=== PATIENT | female | born 1990 | race Caucasian/White ===

== ENCOUNTER 2020-04-11 08:49 | Emergency (ER) | payer OTHER, SELFPAY ==
--- NOTE | ~2020-04-11 | CT_ITS ---
EXAMINATION: CT facial bones wo con DATE: 04/11/2020 09:44 INDICATION: Facial pain after injury TECHNIQUE: Computed tomography (CT) of the facial bones was performed without intravenous contrast. T he dose-length product was 273.42 mGy-cm. Automated exposure control and iterative reconstruction cheko hnique were employed. COMPARISON: None FINDINGS: Orbits are symmetric without evidence for blowout fracture.. There is a right janee bullos a. Leftward nasal septal deviation. No acute facial fracture. Temporomandibular joints intact. Mandib le within normal limits. Visualized aspects of the cervical spine are unremarkable. There is a nasal fracture which is likely chronic. IMPRESSION: 1. No acute maxillofacial fracture. Reviewed, dictated and finalized at location B.
[2020-04-11 09:09] VITALS: BP 224/120; PULSE 99; RESP 16; TEMP 35.9; O2SAT 98
--- NOTE | 2020-04-11 10:06 | ED.HEATRA ---
HPI - Head Injury General Chief complaint: Head Injury Stated complaint: head injury Time Seen by Provider: 04/11/20 09:13 Source: patient Mode of arrival: ambulatory Limitations: no limitations History of Present Illness HPI Narrative: Patient is a 29-year-old female who presents with facial injury that occurred last night patient's dog jumped up into her face striking the face patient notes aching pain at this location with increased rhinorrhea since the injury patient denies loss of consciousness patient presents in no distress with patient has not taken anything for symptoms patient notes today she felt dizzy and lightheaded nauseous patient on arrival is in no distress does not appear uncomfortable Related Data Home Medications Medication Instructions Recorded Confirmed Control 04/11/20 sertraline [Zoloft] 25 mg PO DAILY 04/11/20 Allergies Allergy/AdvReac Type Severity Reaction Status Date / Time amoxicillin Allergy Unknown Verified 04/11/20 09:08 Penicillins Allergy Unknown Verified 04/11/20 09:08 Review of Systems Review of Systems: All systems reviewed & are unremarkable except as noted in HPI and below PMFSH Past Medical History Medical History (Updated 04/11/20 @ 10:09 by Alfredo Mercado PA-C) Obese Social History Social History (Updated 04/11/20 @ 10:07 by Alfredo Mercado PA-C) Smoking status: Never smoker Gender identity (if verbalized by the patient): Female Exam Narrative: Exam Narrative: GENERAL: Well-appearing, obese, and in no acute distress. HEAD: Normocephalic, atraumatic. EYES: PERRLA and EOMI. ENT: Nares clear, no rhinorrhea or epistaxis. Mucous membranes moist. Oropharynx without tonsillar hypertrophy exudate or other lesions. CHEST: Clear to auscultation. No respiratory distress. No wheezes rales or rhonchi HEART: Regular rate and rhythm. No murmur heard. EXTREMITIES: Normal range of motion. No edema. SKIN: Warm, dry, no rash. NEURO: No focal deficits. Alert and oriented x3. Cranial nerves II through XII grossly intact. Normal speech and gait PSYCH: Normal mood and affect. Course Course Emergency Course: Patient in the room in no distress aware of case findings treatment plan and diagnosis agreeing to follow-up as direct Vital Signs Vital signs: Vital Signs Temperature 96.7 F L 04/11/20 09:09 Pulse Rate 99 04/11/20 09:09 Respiratory Rate 16 04/11/20 09:09 Blood Pressure 224/120 H 04/11/20 09:09 Pulse Oximetry 98 04/11/20 09:09 Temperature 96.7 F L 04/11/20 09:09 Pulse Rate 99 04/11/20 09:09 Respiratory Rate 16 04/11/20 09:09 Blood Pressure 224/120 H 04/11/20 09:09 Pulse Oximetry 98 04/11/20 09:09 MDM - Head Injury MDM Narrative Medical decision making narrative: Patient with negative CT imaging felt appropriate for outpatient reevaluation advised to follow with primary care for further evaluation of her injuries and her blood pressure Discharge Plan Discharge Clinical Impression: Closed head injury Patient Disposition: Home, Self-Care Condition: Stable Instructions: Antibiotic Form, Concussion (ED) Additional Instructions: Follow up with your primary care doctor in 5-7 days for re-evaluation. Go to ER for worsening pain, vision changes, nausea/vomiting, fever/chills, weakness, chest pain, shortness of breath, numbness/tingling, slurred speech, difficulty walking, change in mental status etc. or any other concerns. Take any prescribed medications as directed. Prescriptions: No Action sertraline [Zoloft] 25 mg Tablet 25 mg PO DAILY RF: 0 Control RF: 0 Follow-up/Referrals: Nahum,Jodi Bhatt, [employer]ATOR-BC [Primary Care Provider] - Stand Alone Forms: Work/School Release IP
[2020-04-11 10:19] VITALS: BP 160/99; PULSE 75; RESP 16; O2SAT 100
== END 2020-04-11 10:23 | disposition home or self-care (01) ==
PROVIDERS: Emergency Provider Emergency Medicine; PCP Nurse Practitioner Family
DX: S09.93XA Unspecified injury of face, initial encounter (principal); E66.9 Obesity, unspecified; Z68.41 Body mass index [BMI] 40.0-44.9, adult; W54.1XXA Struck by dog, initial encounter
CPT/HCPCS: 70486; 99284

== ENCOUNTER 2023-10-01 17:04 | Emergency (ER) | payer OTHER, SELFPAY ==
--- NOTE | 2023-10-01 17:14 | ED.WOUNDLAC ---
HPI - Wound/Laceration General Chief Complaint: Skin/Abscess/Foreign Body Stated Complaint: dog scratch around left eye Time Seen by Provider: 10/01/23 17:34 Source: patient and RN notes reviewed Mode of arrival: ambulatory Limitations: no limitations History of Present Illness HPI narrative: 32-year-old female presents with concern for a dog scratch under her left eye. Reports she got scratched by a dog last night, had a scratch. She has been wearing a Band-Aid, she took the bandage off today noticed some pus in the scratch. Related Data Home Medications Medication Instructions Recorded Confirmed buspirone 7.5 mg tablet 7.5 mg PO BID 10/01/23 10/01/23 dapagliflozin propanediol 5 mg 5 mg PO DAILY 10/01/23 10/01/23 tablet (Farxiga) glipizide 5 mg tablet 5 mg PO BID 10/01/23 10/01/23 lisinopril 40 mg tablet 40 mg PO DAILY 10/01/23 10/01/23 metformin 1,000 mg tablet 1,000 mg PO DAILY 10/01/23 10/01/23 nebivolol 5 mg tablet 5 mg PO DAILY 10/01/23 10/01/23 rosuvastatin 5 mg tablet 5 mg PO HS 10/01/23 10/01/23 sertraline 50 mg tablet 50 mg PO DAILY 10/01/23 10/01/23 tirzepatide 7.5 mg/0.5 mL 7.5 mg subcut WEEKLY 10/01/23 10/01/23 subcutaneous pen injector (Mounjaro) Allergies Allergy/AdvReac Type Severity Reaction Status Date / Time amoxicillin Allergy Unknown Verified 10/01/23 17:20 Penicillins Allergy Unknown Verified 10/01/23 17:20 Review of Systems Review of Systems: CONSTITUTIONAL: Denies malaise, chills, sweats, or fever. SKIN: Reports laceration with purulent drainage MUSCULOSKELETAL: Denies muscle skeletal pain NEUROLOGIC: Denies numbness, weakness All systems reviewed & are unremarkable except as noted in HPI and below PMFSH Past Medical History Medical History (Updated 10/01/23 @ 17:42 by Mona Gilman NP) Obese Social History Social History (Updated 04/11/20 @ 10:07 by Alfredo Mercado, LUDIVINA) Smoking status: Never smoker Gender identity (if verbalized by the patient): Female Comments At time of signature, agree with nursing past medical, surgical, social and family history. There is no relevant family history pertinent to the presenting complaint Exam Narrative: GENERAL: Well-appearing, well-nourished, and in no acute distress. HEAD: Normocephalic, atraumatic. EYES: PERRLA, conjunctivae clear, and EOMI. ENT: Mucous membranes moist. NECK: Supple. No lymphadenopathy CHEST: Clear to auscultation. No respiratory distress. HEART: Regular rate and rhythm. SKIN: Warm, dry. Erythema, superficial edema noted on the left eye with a 1 cm laceration with dried purulent drainage NEURO: Alert and oriented x3. PSYCH: Normal mood and affect Course Course Emergency Course: Patient is aware of diagnosis, understands and agrees to treatment plan. Anticipatory guidance given. Patient agrees to follow-up as directed and is aware of reasons to seek care at the emergency department. Portions of this record may have been created with voice recognition software Level of Care: Express Care Visit Vital Signs Vital signs: Reviewed. MDM - Wound/Laceration Differential Diagnosis Differential diagnosis: Likely laceration, abrasion, avulsion of skin and other (Does not appear at this time to be erythema multiforme, bullous, SJS, TEN; no evidence at this time to suggest RMSF, NSTI, endocarditis or Lyme disease; patient looks well, nontoxic and is tolerating oral intake; no neurologic signs or symptoms; no headache, photophobia or neck pain; afebrile. Dipti) Critical Care Time Critical Care Time Critical Care Time: No Discharge Plan Discharge Clinical Impression: Infected wound Patient Disposition: Home, Self-Care Condition: Stable Instructions: Antibiotic Form, Wound Infection (ED) Additional Instructions: Please follow up with your Primary Care Doctor within 48-72 hours - call for an appointment. Apply moist heat 3-4 times daily for 10-15 minutes. Take Motrin 600mg jr
[2023-10-01 17:21] VITALS: BP 157/116; PULSE 77; RESP 16; TEMP 36.7; O2SAT 99
[2023-10-01 17:24] VITALS: BP 157/116; PULSE 77; RESP 16; TEMP 36.7; O2SAT 99
== END 2023-10-01 17:46 | disposition home or self-care (01) ==
PROVIDERS: Emergency Provider Nurse Practitioner
DX: S01.112A Laceration without foreign body of left eyelid and periocular area, initial encounter (principal); L08.9 Local infection of the skin and subcutaneous tissue, unspecified; W54.8XXA Other contact with dog, initial encounter; E66.9 Obesity, unspecified; Z68.41 Body mass index [BMI] 40.0-44.9, adult
CPT/HCPCS: 99213; G0463

== ENCOUNTER 2023-10-03 07:24 | Emergency (ER) | payer OTHER, SELFPAY ==
[2023-10-03 07:26] VITALS: BP 181/108; PULSE 90; RESP 20; TEMP 36.3; O2SAT 98
[2023-10-03 07:34] VITALS: BP 160/105
[2023-10-03 08:15] LABS: Basophils Absolute Auto 0.1 K/mm3 (0.0-0.1); Basophils Percent Auto 0.9 % (0.2-1.2); Eosinophils Absolute Auto 0.3 K/mm3 (0-0.3); Eosinophils Percent Auto 3.6 % (0-4.4); Hematocrit 40.7 % (37.0-47.0); Hemoglobin 12.6 g/dL (12.0-15.0); Immature Granulocyte Absolute 0.02 K/mm3 (0.00-0.031); Immature Granulocyte Percent A 0.2 % (0-0.5); Lymphocytes Absolute Auto 1.98 K/mm3 (0.9-3.2); Lymphocytes Percent Auto 24.5 % (18.3-44.2); Mean Corpuscular Hemoglobin 25.2 pg (26-34); Mean Corpuscular Volume 81.4 fl (80-100); Mean Platelet Volume 9.2 fl (7.4-10.4); Monocytes Absolute Auto 0.4 K/mm3 (0.1-0.6); Monocytes Percent Auto 4.5 % (2.6-8.5); Neutrophils Absolute Auto 5.4 K/mm3 (1.3-6.7); Neutrophils Percent Auto 66.3 % (45.5-73.1); Platelet Count Result 406 k/mm3 (150-375); Red Cell Distribution Width 13.9 % (11.5-14.5); White Blood Count 8.1 K/mm3 (4.5-10.0)
[2023-10-03 08:24] LABS: Alanine Aminotransferase 48 U/L (6-35); Albumin Level 4.6 g/dL (3.5-5.1); Alkaline Phosphatase 59 U/L (38-126); Anion Gap 10 mmol/L (4-12); Aspartate Amino Transferase 43 U/L (14-36); Bilirubin,Total 0.5 mg/dL (0.2-1.3); Blood Urea Nitrogen 14 mg/dL (7-17); Calcium 9.4 mg/dL (8.4-10.2); Carbon Dioxide 23 mmol/L (22-30); Chloride 107 mmol/L (98-107); Estimated CRCL calculation 148 ml/min; Estimated Glomerular Filt Rate > 60; Glucose 190 mg/dL (65-110); Potassium 4.4 mmol/L (3.4-5.0); Sodium 140 mmol/L (137-145)
--- NOTE | 2023-10-03 08:25 | ED.GENADULT ---
HPI - General Adult General Chief complaint: Animal Bite Stated complaint: dog bit to face Time Seen by Provider: 10/03/23 07:28 History of Present Illness HPI narrative: Patient is a 32-year-old female who presents ER with concerns for infection to her left face. She was either bit or scratched by her dog 2 days ago. She has a 1 cm laceration that is healing by secondary intention. She was seen at an urgent care prescribe cefpatrick. She has had no purulence drainage. This morning when she woke up her eye was more puffy which made her concerned. There is slight warmth when compared to the right side. There is some bruising developing. No change in vision. No eye pain. Related Data Home Medications Medication Instructions Recorded Confirmed buspirone 7.5 mg tablet 7.5 mg PO BID 10/01/23 10/01/23 dapagliflozin propanediol 5 mg 5 mg PO DAILY 10/01/23 10/01/23 tablet (Farxiga) glipizide 5 mg tablet 5 mg PO BID 10/01/23 10/01/23 lisinopril 40 mg tablet 40 mg PO DAILY 10/01/23 10/01/23 metformin 1,000 mg tablet 1,000 mg PO DAILY 10/01/23 10/01/23 nebivolol 5 mg tablet 5 mg PO DAILY 10/01/23 10/01/23 rosuvastatin 5 mg tablet 5 mg PO HS 10/01/23 10/01/23 sertraline 50 mg tablet 50 mg PO DAILY 10/01/23 10/01/23 tirzepatide 7.5 mg/0.5 mL 7.5 mg subcut WEEKLY 10/01/23 10/01/23 subcutaneous pen injector (Mounjaro) Allergies Allergy/AdvReac Type Severity Reaction Status Date / Time amoxicillin Allergy Unknown Verified 10/03/23 07:24 clindamycin Allergy Rash Verified 10/03/23 07:24 Penicillins Allergy Unknown Verified 10/03/23 07:24 Review of Systems Constitutional: Constitutional: Reports no additional constitutional complaints Eyes: Eyes: Reports no additional eye complaints Integumentary/Breasts: Skin/Breast: Reports erythema, Denies rash and Denies skin ulcer PMFSH Past Medical History Medical History (Updated 10/03/23 @ 09:17 by Davian Charles MD) Diabetes Obese Social History Social History (Updated 04/11/20 @ 10:07 by Alfredo Mercado, PASheila) Smoking status: Never smoker Gender identity (if verbalized by the patient): Female Exam Narrative: GENERAL: Well-appearing, well-nourished, and in no acute distress. HEAD: Normocephalic, atraumatic. EYES: PERRL and EOMI. ENT: Mucous membranes moist. EXTREMITIES: Normal range of motion. No edema. SKIN: Warm, dry, no rash. 1 cm laceration healing by secondary intention to the infraorbital region on the left side. There is slight warmth and bruising to the area. There is some yellowing of the skin. No fluctuance. NEURO: Alert and oriented x3. PSYCH: Normal mood and affect. Course Course Emergency Course: Labs reassuring. Will broaden antibiotic coverage with Flagyl and topical antibiotic. Follow-up with PCP. Discussed return precautions. Vital Signs Vital signs: Vital Signs Temperature 97.4 F L 10/03/23 07:26 Pulse Rate 90 10/03/23 07:26 Respiratory Rate 20 10/03/23 07:26 Blood Pressure 181/108 H 10/03/23 07:26 Pulse Oximetry 98 10/03/23 07:26 Oxygen Delivery Room Air 10/03/23 07:26 Temperature 97.4 F L 10/03/23 07:26 Pulse Rate 90 10/03/23 07:26 Respiratory Rate 20 10/03/23 07:26 Blood Pressure 160/105 H 10/03/23 07:34 Pulse Oximetry 98 10/03/23 07:26 Oxygen Delivery Room Air 10/03/23 07:26 Medical Decision Making Vital Signs Vital Signs: Vital Signs Temperature 97.4 F L 10/03/23 07:26 Pulse Rate 90 10/03/23 07:26 Respiratory Rate 20 10/03/23 07:26 Blood Pressure 181/108 H 10/03/23 07:26 Pulse Oximetry 98 10/03/23 07:26 Oxygen Delivery Room Air 10/03/23 07:26 Temperature 97.4 F L 10/03/23 07:26 Pulse Rate 90 10/03/23 07:26 Respiratory Rate 20 10/03/23 07:26 Blood Pressure 160/105 H 10/03/23 07:34 Pulse Oximetry 98 10/03/23 07:26 Oxygen Delivery Room Air 10/03/23 07:26 Lab Data 10/03/23 08:10 10/03/23 08
[2023-10-03 09:26] VITALS: BP 139/78; PULSE 80; RESP 16; O2SAT 98
== END 2023-10-03 09:27 | disposition home or self-care (01) ==
PROVIDERS: Emergency Provider Emergency Medicine
DX: S01.152A Open bite of left eyelid and periocular area, initial encounter (principal); W54.0XXA Bitten by dog, initial encounter; E11.9 Type 2 diabetes mellitus without complications; E66.9 Obesity, unspecified; Z68.41 Body mass index [BMI] 40.0-44.9, adult
CPT/HCPCS: 36415; 80053; 85025; 99283

== ENCOUNTER 2024-07-25 16:46 | Inpatient (IN) | payer OTHER, SELFPAY ==
--- NOTE | ~2024-07-25 | CT_ITS ---
CLINICAL INDICATION: Hypoglycemia with acute renal failure COMPARISON: None. TECHNIQUE: Multiple contiguous axial images of the abdomen and pelvis were performed without the admi nistration of intravenous contrast The dose-length product (DLP) was 1593.22 mGy-cm. Automated exposure control and iterative reconstruction technique were employed. FINDINGS/OBSERVATIONS: Visualized lower thorax: The bilateral lung bases are clear. The heart is of normal size, without pericardial effusion. Small hiatal hernia is present. Liver: The liver demonstrates homogeneous attenuation and is enlarged measuring 20 cm in longitudinal dimens ion. Gallbladder and biliary system: The gallbladder is only minimally distended, and otherwise unremarkable. Pancreas: Limited evaluation of the pancreas secondary to the lack of intravenous contrast. Spleen: The spleen demonstrates homogeneous attenuation and is not enlarged measuring 6 cm in longitudinal di mension. Kidneys: The bilateral kidneys are unremarkable, without hydronephrosis or renal calculi. Adrenal glands: Unremarkable. Gastrointestinal tract: Colonic diverticulosis without surrounding inflammatory change. Fecal stasis within the colon. Appendix: The air-filled appendix is of normal caliber (axial series, images 124 through 140) Vasculature: Unremarkable. Lymph nodes: No pathologically enlarged or morphologically suspicious lymph nodes within the retroperitoneum or at the root of the mesentery. Pelvic structures: The bladder is only minimally distended, and demonstrates thickened mcgill with surrounding inflammato ry change, findings suggesting cystitis. The uterus is anteverted and anteflexed, and otherwise unremarkable. Body wall and musculoskeletal: Small fat-containing umbilical hernia. No significant degenerative disease within the lower thoracic or lumbosacral spine. IMPRESSION: Hepatomegaly. Inflammatory change surrounding the bladder. No obstructive uropathy. Reviewed, dictated and finalized at location A. [employer]
--- NOTE | ~2024-07-25 | US_ITS ---
EXAMINATION: US renal BI DATE: 07/26/2024 08:35 INDICATION: Acute renal failure TECHNIQUE: Multiple ultrasound grayscale images of the kidneys were obtained. COMPARISON: None. FINDINGS: The right kidney measures 15.2 x 5.1 x 6.9 cm. The left kidney measures 13.4 x 5.1 x 6.5 cm. The kidn eys demonstrate normal echogenicity. There is no hydronephrosis in either kidney. No stones identifi ed. The bladder is normal accounting for partially decompressed state. Bilateral ureteral jets visual ized in the bladder on color Doppler.. IMPRESSION: 1. Normal kidneys without hydronephrosis. Reviewed, dictated and finalized at location B. L CHECKER
--- NOTE | ~2024-07-25 | XR_ITS ---
Portable chest x-ray Comparison: None Clinical History: Shortness of breath Findings: Probable retrocardiac airspace disease present. Right lung clear. Cardiomediastinal silho uette is unremarkable. Bones and soft tissues are unremarkable. Impression: Suspected left lower lobe pneumonia. Reviewed, dictated and finalized at location . COMPLIANCE MANAGER Impression: Suspected left lower lobe pneumonia.
--- OUTSIDE RECORDS SUMMARY | 2024-07-25 16:50 | XMS_ITS | Data Portability ---
Author Organization [facility] [employer], Main Office Address [address] [place] [address] Care Team Providers Care Software Installer Name Role Phone TAWANDA MCLAIN Primary Care Provider Assessment Encounter Date Assessment Date Assessment LastModified by Organization Details LastModified Time 11/27/2022 11/27/2022 spent 20 min discussing diet/weight/ and relation of diabetes/lipi d/weight to health status. Not available 11/27/2022 11:33:16 Plan of Treatment Reminders Order Date Submit Date Provider Last Modified By Organization Details Last Modified Time Details Appointments None recorded. Lab TSH, serum, reflex free T4 [address], [address] [place], [address], 3 08:15:55 CMP, serum or plasma 2022 023 [facility] [address] [place], [address], 3 08:44:47 HbA1c (hemoglobi n A1c), blood [address], [address] [place], [address], 3 08:15:54 lipid panel, serum [address], [address] [place], [address], 3 08:15:55 CMP, serum or plasma 2022 023 [facility] (Lab), [address] [place], [address], 3 07:55:52 HbA1c (hemoglobi n A1c), blood [address] [facility], [address] [place], [address], 3 07:55:53 lipid panel, serum [address] [facility], [address] [place], [address], 3 07:55:52 lipid panel, serum 2023 024 SHIRIN [facility], [address] [facility], [facility], [place], [address], 4 09:02:20 HbA1c (hemoglobi n A1c), blood 2023 024 SHIR[facility], [address] [facility], [facility], [place], [address], 4 09:02:20 CMP, serum or plasma 2023 024 SHIRIN [facility], [address] [facility], [facility], [place], [address], 4 09:02:20 HbA1c (hemoglobi n A1c), blood 2023 024 [facility], [address] [facility], [facility], [place], [address], 4 08:21:[address] referral - Patient would like autism screening. Please call patient to schedule an appointmen t. 2023 024 [email or web address] [facility], [address], [place], [address], 4 09:44:40 endocrinol ogsanta referral - Please call patient to schedule an appointmen t. 2023 024 [email or web address] [facility], [address], [address], [place], [address], 4 09:43:32 Procedures None recorded. Surgeries None recorded. Imaging None recorded. Medication Orders metformin 1,000 mg tablet 2022 023 [facility], [address] [place], [address], 3 11:31:53 buspirone 7.5 mg tablet 2023 024 [facility] [address], [address] [place], [address], 4 11:32:29 rosuvastat in 5 mg tablet 2023 024 [facility] [address], [address] [place], [address], 4 11:32:35 sertraline 50 mg tablet 2023 024 [facility] [address], [address] [place], [address], 4 11:52:05 Farxiga 5 mg tablet 2023 024 [facility] [address], [address] [place], [address], 4 11:32:36 glipizide 5 mg tablet 2023 024 [facility] [address], [address] [place], [address], 4 11:52:16 metformin 1,000 mg tablet 2023 024 [facility] [address], [address] [employer], [place], [address], 4 11:32:33 Mounjaro 7.5 mg/0.5 mL subcutaneo us pen injector 2023 024 [facility] [address], [address], [place], [address], 4 10:56:12 OneTouch Verio test strips 2023 024 [facility] [address], [address] [employer], [place], [address], 4 11:52:19 Bystolic 5 mg tablet 2023 024 [facility] [address], [address], [place], [address], 4 08:50:52 lisinopril 40 mg tablet 2023 024 [facility] [address], [address], [place], [address], 4 11:22:26 metoprolol succinate ER 25 mg tablet,ext ended release 24 hr 2023 024 [facility] [address], [address], [place], [address], 4 09:14:54 lisinopril 20 mg-hydroch lorothiazi de 25 mg tablet 2023 024 [facility] [address], [address] [employer], [place], [address], 4 09:03:52 metoprolol succinate ER 50 mg tablet,ext ended release 24 hr 2023 024 [facility] [address], [address] [employer], [place], [address], 4 11:24:04 Mounjaro 7.5 mg/0.5 mL subcutaneo us pen injector 2023 024 [facility] [address], [address] [facility], [place], [address], 4 11:24:01 Mounjaro 10 mg/0.5 mL subcutaneo us pen injector 2023 024 [facility] [address], [address] [facility], [place], [address], 4 11:24:03 Mounjaro 12.5 mg/0.5 mL subcutaneo us pen injector 2023 024 [facility] [address], [address] [facility], [place], [address], 4 11:24:01 Mounjaro 15 mg/0.5 mL subcutaneo us pen injector 2023 024 [facility] [address], [address] [facility], [place], [address], 4 11:24:00 lisinopril 40 mg tablet 2023 024 [facility] [address], [address] [facility], [place], [address], 4 11:24:02 Patient TargetsNo targets recorded. Patient Instructions Encounter Date Encounter Id Patient Instructions Last Modified By Organization Details Last Modified Time 11/27/2022 [id number] Fu in 1 mo for bp, dm, weight, anxiety Not available 11/27/2022 11:32:15 Reason for Referral Endocrinology Referral for U ncontrolled type 2 diabetes mellitus Please call patient to schedule an appointment. Referring Physician: Tawanda Mclain [facility], Encounter Date: 09/09/2023 Psychiatrist Referral for So cial problem Patient would like autism screening. Please call patient to schedule an appointment. Referring Physician: Tawanda Thilker, Family Medicine, Encounter Date: 09/09/2023 Results Created Date Observation Date Name Description Value Unit Range Abnormal Flag Note LastModifiedBy Organization Detail LastModifiedTime Result Notes None recorded. Problems Name Problem SNOMED Code Status Onset Date Resolution Date Notes Provider Name and Address Organization Details Recorded Time Perioral dermatitis 559897918 Completed 201709/05/[address], [address], [place], [address] , [employer] 4 11:03:48 Vaginal discharge 579725163 Completed 201609/05/2023 [facility] [address], [address], [place], [address] , [employer] 4 11:03:48 Tachycardi a 6452308 Active 2018 Not Available [employer] 3 18:51:12 Vaginal odor 391863329 Completed 201609/05/[address], [address], [place], [address] , [employer] 4 11:03:48 Obesity 195089561 Active [address], [address], [place], [address] , [employer] 4 11:04:07 Nausea 748938937 Completed 201609/05/[address], [address], [place], [address] , [employer] 4 11:03:48 Allergic conjunctiv itis 660924779 Completed 201609/05/[address], [address], [place], [address] , [employer] 4 11:03:48 Hyperlipid emia 47506686 Active 2017 [facility] [address], [address], [place], [address] , [employer] 4 11:04:07 Allergic rhinitis 30206053 Completed 201609/05/2023 [facility] [address], [address], [place], [address] , [employer] 4 11:04:00 Diarrhea 54070290 Completed 201609/05/2023 [facility] [address], [address], [place], [address] , [employer] 4 11:03:48 Essential hypertensi on 93584785 Active 2022 [facility] [address], [address], [place], [address] , [employer] 4 11:04:07 Uncontroll ed type 2 diabetes mellitus 142668975 Active 2022 [facility] [address], [address], [place], [address] , [employer] 4 11:04:07 Mixed anxiety and depressive disorder 306489967 Active 2022 [facility] [address], [address], [place], [address] , [employer] 4 11:04:07 COVID-19 514899410 Completed 202209/05/2023 [facility] [address], [address], [place], [address] , [employer] 4 11:03:48 Type 2 diabetes mellitus without complicati on 161390033 Active 2023 [facility] [address], [address], [place], [address] , [employer] [facility] 4 09:03:14 Problem Notes None recorded. Medical Equipment None Reported. Allergies Allergen ID Allergen Name Allergen Category Reaction Reaction Severity Criticality Documentation Date Start Date Code Code System Note Provider Name and Address Organization Details Recorded Time 03926 Substance with sulfonami de structure and antibacte rial mechanism of action (substanc e) medicatio n hives Not available Not available 08/21/2022 07381 8003 SNOMED Not Available [facility] 3 18:52:09 72130 clindamyc in Not available rash Not available Not available 08/21/2022 2582 RxNorm Not Available [facility] 3 18:52:09 35408 amoxicill in medicatio n hives moderate Not available 08/21/2022 723 RxNorm Not Available [facility] 3 18:52:09 Medications Name Sig Start Date Stop Date Status Note LastModified by Organization Details LastModified Time cyclobenz aprine 10 mg tablet Take 1 tablet 3 times a day by oral route. 01/06 completed Not Available Not Available Not Available buspirone 5 mg tablet TAKE 1 TABLET BY MOUTH TWICE DAILY 01/30 completed Not Available Not Available Not Available metformin 500 mg tablet Take 1 tablet by mouth twice daily (last fill until seen 11/12/22) 12/03 completed Not Available Not Available Not Available Aviane 0.1 mg-20 mcg tablet TAKE 1 TABLET BY MOUTH ONCE DAILY 12/18 completed Not Available Not Available Not Available clindamyc in HCl 300 mg capsule 12/30 completed Not Available Not Available Not Available triamcino lone acetonide 0.5 % topical cream APPLY A THIN LAYER TO THE AFFECTED AREA(S) ON RIGHT ELBOW TWICE DAILY FOR 10 DAYS 12/18 completed Not Available Not Available Not Available metoprolo l succinate ER 50 mg tablet,ex tended release 24 hr Take 1 tablet every day by oral route as directed for 90 days. 2023 active Not Available Not Available Not Avai lable ondansetr on HCl 8 mg tablet Take 1 tablet every 8 hours by oral route for 2 days. 12/16 completed Not Available Not Available Not Available Elidel 1 % topical cream APPLY A THIN LAYER TO THE AFFECTED AREA(S) BY TOPICAL ROUTE 2 TIMES PER DAY ; RUB IN GENTLY AND COMPLETE LY active Not Available Not Available No t Available prednison e 20 mg tablet Take 1 tablet every day by oral route for 7 days. active Not Available Not Available No t Available Tubersol 5 tub. unit/0.1 mL intraderm al injection solution Inject 0.1 mL by intrader mal route. 01/19 completed Not Available Not Available Not Available cromolyn 4 % eye drops INSTILL 1 DROP INTO AFFECTED EYE(S) BY OPHTHALM IC ROUTE 4 TIMES PER DAY 12/02 completed Not Available Not Available Not Available Diflucan 150 mg tablet Take 1 tablet every day by oral route for 1 day. 06/13 completed Not Available Not Available Not Available sumatript an 50 mg tablet Take 1 tablet every day by oral route. 11/05 completed migraine s Not Available Not Available Not Available Zyrtec 10 mg tablet Take 1 tablet every day by oral route. 10/11 completed Not Available Not Available Not Available acetamino phen 300 mg-codein e 30 mg tablet 12/30 completed Not Available Not Available Not Available ciproflox acin 250 mg tablet Take 1 tablet every 12 hours by oral route for 3 days. 01/06 completed Not Available Not Available Not Available amitripty line 50 mg tablet TAKE 1 TABLET BY MOUTH IN THE EVENING 12/04 completed Not Available Not Available Not Available terbinafi ne HCl 250 mg tablet 10/04 completed Not Available Not Available Not Available amitripty line 25 mg tablet Take 1 tablet every day by oral route at bedtime. 10/20 completed Not Available Not Available Not Available Flagyl 500 mg tablet Take 1 tablet 3 times a day by oral route. 12/09 completed Not Available Not Available Not Available simvastat in 20 mg tablet TAKE 1 TABLET BY MOUTH AT BEDTIME 10/04 completed Not Available Not Available Not Available acyclovir 5 % topical ointment COCO AA 6 TIMES PER DAY FOR 5 TO 7 DAYS 09/13 completed Not Available Not Available Not Available metformin 1,000 mg tablet Take 1 tablet twice a day by oral route. 2023 active Not Available Not Available Not Avai lable clotrimaz ole-betam ethasone 1 %-0.05 % topical cream APPLY A SMALL AMOUNT OF CREAM TOPICALL Y TWICE DAILY FOR 14 DAYS 10/04 completed Not Available Not Available Not Available buspirone 7.5 mg tablet Take 1 tablet by mouth twice daily 2023 active Not Available Not Available Not Avai lable lisinopri l 20 mg-hydroc hlorothia zide 25 mg tablet TAKE 1 TABLET BY MOUTH ONCE DAILY DIRECTED 2023 active Not Available Not Available Not Avai lable hydroxyzi ne HCl 25 mg tablet TAKE 1 TABLET BY MOUTH EVERY 4 8 HOURS NEEDED FOR ITCHING 10/04 completed Not Available Not Available Not Available metoprolo l succinate ER 25 mg tablet,ex tended release 24 hr Take 1 tablet every day by oral route as directed for 90 days. 2023 active Not Available Not Available Not Avai lable lisinopri l 40 mg tablet Take 1 tablet every day by oral route as directed for 90 days. 2023 active Not Available Not Available Not Avai lable cefdinir 300 mg capsule Take 1 capsule every 12 hours by oral route. 12/09 completed Not Available Not Available Not Available fluticaso ne propionat e 50 mcg/actua tion nasal spray,isaac pension Forsan 1 spray every day by intranas al route. 06/13 completed Not Available Not Available Not Available sertralin e 50 mg tablet Take 1 tablet by mouth once daily 2024 active Not Available Not Available Not Avai lable doxycycli ne hyclate 100 mg tablet Take 1 tablet twice a day by oral route for 10 days. active Not Available Not Available No t Available glipizide 5 mg tablet Take 1 tablet by mouth twice daily 2023 active Not Available Not Available Not Avai lable atomoxeti ne 25 mg capsule Take 1 capsule every day by oral route. active Not Available Not Available No t Available rosuvasta tin 5 mg tablet TAKE 1 TABLET BY MOUTH ONCE DAILY AT NIGHT 2023 active Not Available Not Available Not Avai lable BD Ultra-Fin e Short Pen Needle 31 gauge x /16 Use daily with Soliqua 2022 active Not Available Not Available Not Avai lable Bystolic 5 mg tablet Take 1 tablet every day by oral route. 10/09 completed Not Available Not Available Not Available OneTouch Verio test strips USE 1 STRIP TO CHECK GLUCOSE ONCE DAILY 2023 active Not Available Not Available Not Avai lable Farxiga 5 mg tablet Take 1 tablet every day by oral route. 2023 active Not Available Not Available Not Avai lable Soliqua 100/33 100 unit-33 mcg/mL subcutane ous insulin pen 24 units sq daily 12/18 completed Not Available Not Available Not Available Eucrisa 2 % topical ointment APPLY TOPICALL Y TO AFFECTED AREA TWICE DAILY 12/18 completed Not Available Not Available Not Available Fluarix Quad 0729-4019 (PF) 60 mcg (15 mcg x 4)/0.5 mL IM syringe active Not Available Not Available Not Available OneTouch Ultra2 Meter USE TO TEST FASTING GLUCOSE EVERY MORNING AND RECORD active Not Available Not Available No t Available OneTouch Delica Plus Lancet 33 gauge USE TO TEST FASTING GLUCOSE DAILY DIRECTED active Not Available Not Available No t Available ID NOW COVID-19 Test Kit TEST DIRECTED 06/06 completed Not Available Not Available Not Available COVID-19 test specimen collectio n DIRECTED 06/06 completed Not Available Not Available Not Available Paxlovid 300 mg (150 mg x 2)-100 mg tablets in a dose pack Take 1 dose pk twice a day by oral route for 5 days. 09/04 completed Not Available Not Available Not Available Mounjaro 7.5 mg/0.5 mL subcutane ous pen injector Inject 7.5 mg SQ weekly 2023 active Not Available Not Available Not Avai lable Mounjaro 5 mg/0.5 mL subcutane ous pen injector Inject 5 mg every week by subcutan eous route. 09/04 completed Not Available Not Available Not Available Mounjaro 15 mg/0.5 mL subcutane ous pen injector INJECT 15 MG UNDER THE SKIN DIRECTED 2023 active Not Available Not Available Not Avai lable Mounjaro 10 mg/0.5 mL subcutane ous pen injector Inject 10 mg SQ weekly as directed 2023 active Not Available Not Available Not Avai lable Mounjaro 12.5 mg/0.5 mL subcutane ous pen injector Inject 12.5 mg SQ weekly as directed 2023 active Not Available Not Available Not Avai lable Mounjaro 2.5 mg/0.5 mL subcutane ous pen injector Inject 2.5 mg every week by subcutan eous route. 09/04 completed Not Available Not Available Not Available Vitals Date Recorded Body height Body mass index (BMI) Body weight Heart rate Oxygen saturation Oxygen saturation in Arterial blood by Pulse oximetry Systolic blood pressure Diastolic blood pressure Provider Name and Address Organization Details Last Updated DateTime 3 167.64 cm 44.9 kg/m2 826937. 43 g 101 /min 98 % 98 % 205 mm[Hg] 145 mm[Hg] Yanni Edwards MA [facility] [employer] [facility] 3 10:43:59 Date Recorded Body height Body mass index (BMI) Body weight Body temperature Heart rate Respiratory rate Oxygen saturation Oxygen saturation in Arterial blood by Pulse oximetry Pain severity - 0-10 verbal numeric rating [Score] - Reported Systolic blood pressure Diastolic blood pressure Provider Name and Address Organization Details Last Updated DateTime 3 167.64 cm 43.9 kg/m2 028750. 17 g 95.5 [degF] 74 /min 16 /min 98 % 98 % 0 178 mm[Hg] 110 mm[Hg] Jodi Rand RN [facility] [employer] [facility] 3 09:05:16 Date Recorded Body height Body mass index (BMI) Body weight Body temperature Heart rate Respiratory rate Oxygen saturation Oxygen saturation in Arterial blood by Pulse oximetry Pain severity - 0-10 verbal numeric rating [Score] - Reported Systolic blood pressure Diastolic blood pressure Provider Name and Address Organization Details Last Updated DateTime 4 167.64 cm 41.7 kg/m2 775625. 18 g 89.6 [degF] 382 /min 20 /min 98 % 98 % 0 178 mm[Hg] 100 mm[Hg] Jodi Rand RN [facility] [employer] [facility] 4 11:12:11 Date Recorded Body height Body mass index (BMI) Body weight Body temperature Heart rate Respiratory rate Oxygen saturation Oxygen saturation in Arterial blood by Pulse oximetry Pain severity - 0-10 verbal numeric rating [Score] - Reported Systolic blood pressure Diastolic blood pressure Provider Name and Address Organization Details Last Updated DateTime 4 167.64 cm 42 kg/m2 979531. 47 g 96.3 [degF] 83 /min 20 /min 98 % 98 % 0 180 mm[Hg] 110 mm[Hg] Jodi Rand RN [facility] [employer] [facility] 4 08:36:51 Date Recorded Body height Body mass index (BMI) Body weight Body temperature Heart rate Respiratory rate Oxygen saturation Oxygen saturation in Arterial blood by Pulse oximetry Pain severity - 0-10 verbal numeric rating [Score] - Reported Systolic blood pressure Diastolic blood pressure Provider Name and Address Organization Details Last Updated DateTime 4 167.64 cm 41.9 kg/m2 837202. 57 g 97.4 [degF] 85 /min 20 /min 99 % 99 % 0 172 mm[Hg] 110 mm[Hg] Jodi Rand RN [facility] [employer] [facility] 4 10:59:23 Social History Question Answer Notes LastModified by [employer] ion Details LastModified Time Tobacco Smoking Status Former Smoker Jodi Rand RN [facility] [employer] [facility] 12/18/2022 09:06:35 Do You Have An Advance Directive? No Information not available 12/18/2022 What Is Your Level Of Alcohol Consumption? Occasional Information not available 12/18/2022 Is Blood Transfusion Acceptable In An Emergency? Yes Information not available 12/18/2022 What Is Your Level Of Caffeine Consumption? Occasional Information not available 09/09/2023 What Is Your Code Status? Full Code Information not available 12/18/2022 In The 14 Days Before Symptom Onset, Have You Had Close Contact With A Laboratory-confi rmed COVID-19 While That Case Was Ill? No Information not available 12/18/2022 In The 14 Days Before Symptom Onset, Have You Had Close Contact With A Person Who Is Under Investigation For COVID-19 While That Person Was Ill? No Information not available 12/18/2022 Are You Currently Employed? Yes Information not available 12/18/2022 What Is The Highest Grade Or Level Of School You Have Completed Or The Highest Degree You Have Received? [id number] Information not available 12/18/2022 What Is Your Occupation? Teacher- [employer] Information no t available 09/09/2023 How Many Days Of Moderate To Strenuous Exercise, Like A Brisk Walk, Did You Do In The Last 7 Days? 5 Information not available 12/18/2022 On Those Days That You Engage In Moderate To Strenuous Exercise, How Many Minutes, On Average, Do You Exercise? 45 Information not available 12/18/2022 Have There Been Any Changes To Your Family Or Social Situation? No Information not available 12/18/2022 When Did You Quit Smoking? 6-10yearssincelast cigarette Information not available 12/18/2022 Do You Use Insect Repellent Routinely? Yes Information not available 12/18/2022 Where Do You Live? [facility] Information not available 12/18/2022 Do You Have A Medical Power Of Computer Systems Technician? No Information not available 12/18/2022 How Many Children Do You Have? 0 Information not available 12/18/2022 What Is Your Relationship Status? Information not available 12/18/2022 Do You Use Your Seat Belt Or Car Seat Routinely? Yes Information not available 12/18/2022 Do You Have Smoke And Carbon Monoxide Detectors In Your Home? Yes Information not available 12/18/2022 At What Age Did You Start Smoking Tobacco? 19 Information not available 12/18/2022 Are There Any Smokers In Your House? No Information not available 12/18/2022 Do You Participate In Social Media? Yes Information not available 12/18/2022 What Types Of Sporting Activities Do You Participate In? Walk Information not available 12/18/2022 Do You Feel Stressed (tense, Restless, Nervous, Or Anxious, Or Unable To Sleep At Night)? [id number] Information not available 09/09/2023 Do You Use Any Illicit Or Recreational Drugs? No Information not available 12/18/2022 Do You Use Sunscreen Routinely? Yes Information not available 12/18/2022 Have You Recently Traveled Abroad? No Information not available 12/18/2022 Are You Currently In School? Yes Information not available 12/18/2022 Do You Have Any Dietary Restrictions? No Information not available 09/09/2023 Sex: Unknown Functional Status Question Answer Note LastModified by Organizat ion Details LastModified Time What is your exercise level? Occasional Information not available 12/18/2022 Mental Status None recorded. Family History Nothing Reported Notes:bladder cancer - fathe r Medical History Condition Response DIABETES, TYPE Y HYPOTENSION N HYPERTENSION Y OBESITY Y ANXIETY DISORDER Y DEPRESSION (INCLUDING POST ) Y Gynecological History Statement/Question Response Flow Moderate Date of LMP 11/27/2023 STIs/STDs N Date of Last Pap 06/06/2021 Duration of Flow (days) 4 Most Recent Mammogram Age at Menarche 11 Breast Problems none Date of Last Colonoscopy Frequency of Cycle (Q days) 28 Most Recent Bone Density Menses Monthly Y Date of Last Pap Smear Discharge none Obstetrics History GPAL:G 0 P 0 0 0 0 Immunizations Vaccine Type Date Status Note Provider Nam e and Address Organization Details Recorded Time SARS-COV-2 (COVID-19) vaccine, UNSPECIFIED 1 completed Not Available [facility] 08/21/2022 18:52:04 SARS-COV-2 (COVID-19) vaccine, UNSPECIFIED 1 completed Not Available [facility] 08/21/2022 18:52:05 IPV 7 completed Not Available [facility] 08/21/2022 18:52:05 MMR 7 completed Not Available [facility] 08/21/2022 18:52:05 DTaP, unspecified formulation 6 completed Not Available [facility] [facility] 18:52:05 IPV 6 completed Not Available [facility] 08/21/2022 18:52:05 DTaP, unspecified formulation 4 completed Not Available [facility] 08/21/2022 18:52:05 IPV 4 completed Not Available [facility] 08/21/2022 18:52:05 Hib, unspecified formulation 3 completed Not Available [facility] 08/21/2022 18:52:05 MMR 3 completed Not Available [facility] 08/21/2022 18:52:05 Hep B, unspecified formulation 3 completed Not Available [facility] 08/21/2022 18:52:05 Hep B, unspecified formulation 3 completed Not Available [facility] 08/21/2022 18:52:05 DTaP, unspecified formulation 3 completed Not Available [facility] 08/21/2022 18:52:05 Hep B, unspecified formulation 3 completed Not Available [facility] 08/21/2022 18:52:05 DTaP, unspecified formulation 2 completed Not Available [facility] 08/21/2022 18:52:05 Hib, unspecified formulation 2 completed Not Available [facility] 08/21/2022 18:52:06 IPV 2 completed Not Available [facility] 08/21/2022 18:52:06 DTaP, unspecified formulation 2 completed Not Available [facility] 08/21/2022 18:52:06 Hib, unspecified formulation 2 completed Not Available [facility] 08/21/2022 18:52:06 IPV 2 completed Not Available [facility] 08/21/2022 18:52:06 COVID-19, mRNA, LNP-S, PF, 100 mcg/0.5mL dose or 50 mcg/0.25mL dose 1 completed Not Available [facility] 08/21/2022 18:52:06 Influenza, split virus, quadrivalent, preservative 8 completed Not Available [facility] 08/21/2022 18:52:06 HPV, unspecified formulation 9 completed Not Available [facility] 08/21/2022 18:52:06 Tdap 9 completed Not Available [facility] 08/21/2022 18:52:06 HPV, unspecified formulation 9 completed Not Available [facility] 08/21/2022 18:52:06 HPV, unspecified formulation 9 completed Not Available [facility] 08/21/2022 18:52:06 meningococcal ACWY, unspecified formulation 8 completed Not Available [facility] 08/21/2022 18:52:06 Tdap 4 completed Not Available [facility] 08/21/2022 18:52:06 Tdap 1 completed Not Available [facility] 08/21/2022 18:52:07 Influenza, split virus, quadrivalent, PF 1 completed Not Available [facility] 08/21/2022 18:52:07 Influenza, split virus, quadrivalent, PF 9 completed Not Available [facility] 08/21/2022 18:52:07 Past Encounters Encounter ID Performer Location Encounter Start Date Encounter Closed Date Diagnosis/Indication Diagnosis SNOMED-CT Code Diagnosis ICD10 Code Diagnosis Note [id number] [facility] [address] [place] [id number] 1 09/14/2020 00:00:00 09/15/2020 19:14:06 [id number] [facility] [address] [place] [address] [id number] 1 06/06/2021 00:00:00 06/06/2021 11:57:12 [id number] [facility] [address] [place] [address] [id number] 1 12/04/2021 00:00:00 12/04/2021 13:33:11 [id number] [facility] [address] [place], [place] [address] [place] [address] 12/19/2021 00:00:00 12/19/2021 10:55:02 [id number] [facility] [address] [place] [id number] 1 01/30/2022 00:00:00 01/30/2022 08:32:20 [id number] Jodi Sidhu NP [facility] [address] [id number] 1 11/27/2022 10:22:31 11/27/2022 11:35:00 Obese 836483434 E66.9 Diet and activity advised. Essential hypertension 69989974 I10 Referring to cardiology for further eval.Lisin opril 40 mg po daily.Dipti ent to take home bp log and call friday with readings. If still high, add amlodipine or bystolic. Uncontroll ed type 2 diabetes mellitus 228636552 E11.65 Metformin 500 mg po bid to 1000 mg po bid 11/27/22Soli josr 24 units daily.Cons ider ozempic or mounjary instead of soliqua. Hyperlipidemia 30862786 E78.5 Rosuvastat in 5 mg po daily. Mixed anxi ety and depressive disorder 475107105 F41.8 Buspirone 7.5 mg po bid.Sertra line 50 mg po daily. Thyroid di sorder screening 471581917 Z13.29 tsh levels ordered. [id number] Jodi Sidhu NP [address] [id number] 1 12/18/2022 08:53:09 12/18/2022 09:38:14 Essential hypertension 06427534 I10 Referring to cardiology for further eval.Lisin opril 40 mg po daily.Dipti ent to take home bp log and call friday with readings. If still high, add amlodipine or bystolic. Add on bystolic 5 mg po daily. continue BP log. 12/03/22 Hyperlipidemia 63637751 E78.5 Rosuvastat in 5 mg po daily. Type 2 whitney betes mellitus without complication 092978443 E11.9 Mixed anxi ety and depressive disorder 859665461 F41.8 Buspirone 7.5 mg po bid.Sertra line 50 mg po daily. Obese 684299247 E66.9 Diet and activity advised. [id number] [facility] [address] [address] 09/09/2023 10:48:24 09/09/2023 11:46:49 Anxiety 40062730 F41.9 Essential hypertension 30490957 I10 Uncontroll ed type 2 diabetes mellitus 211254602 E11.65 Hyperlipidemia 55582103 E78.5 Mixed anxi ety and depressive disorder 874645193 F41.8 Type 2 whitney betes mellitus without complication 424986302 E11.9 Social problem 040674749 Z60.9 [id number] [facility] [id number] 10/10/2023 08:24:28 10/10/2023 09:23:41 Essential hypertension 03727938 I10 Tachycardia 5640944 R00. 0 Type 2 whitney betes mellitus without complication 439308270 E11.9 [id number] [facility] [address] [place] [id number] 1 12/10/2023 10:45:07 12/10/2023 11:46:21 Uncontrolled type 2 diabetes mellitus 896405923 E11.65 Essential hypertension 55840962 I10 Tachycardia 3372188 R00. 0 Health Concerns Section Related Observation LastModified by Organization Detai ls LastModified Time None Recorded Concern Status LastModified by Organization Details LastModified Time None Recorded Advance Directives Directive N: Payers Encounter Date Sequence Insurance Name Policy Number Policy Hicks Covered Member ID Hicks Member ID Guarantor Name 11/27/[address] [id number] [facility] 12/18/[address] [id number] [facility] 09/09/[address] [place] [address] [id number] [facility] 10/10/[address] [id number] [facility] 12/10/[address] [id number] [facility] Notes Date Note Type Note Provider Name and Address Organization Details Recorded Time 11/27/2022 text/html Here for check u p. HTN- BP up, hasn't been monitoring lately. Has been feeling anxious.DM- hasn't checked fasting sugars. This week BS > 200s for the past week since started checking. Has been on metformin and soliqua 24 units. Trying to do low fat, low carb diet.Anxiety/depres linda- sertraline working well.Obese- hasn't been actively trying to lose weight.Due for labs. Not fasting today.Sleeping well. Jodi Sidhu NP [address], [place], [address], [employer] 11/27/2022 11:34:11 12/18/2022 text/html Here for check u p. HTN- BP at home 140/95 at home with addition of bystolic. Diet changes to reduce caffeine and soda. Gets caffeine headache. States she is 'satisified' with smaller portions of foods.DM- BS 130s fasting- has had 2 doses of mounjaro and farxiga. Was running 260s.Anxiety/depres linda- sertraline working well.Obese- hasn't been actively trying to lose weight.Due for labs. Not fasting today.Sleeping well. Jodi Sidhu NP [address], [place], [address], [employer] 12/18/2022 09:33:30 09/09/2023 text/html Janice Shepherd is a 32 year old female patient here to establish care. She was previously under the care of Jodi Sidhu who is no longer with this clinic. Janice has type II diabetes mellitus. She is currently managed by primary care. Her last A1C (10/20/2021) was 13.0. She is currently taking glipizide 5 mg PO BID, metformin 1,000 mg PO BID, and Mounjaro 7.5 mg weekly. Will repeat A1C today and refer to endo. She has mixed depressive and anxiety disorder. She is currently taking buspirone 7.5 mg PO BID and sertraline 50 mg PO daily. Her PHQ2/9 score today is 0. She has primary hypertension. Her blood pressure today is 178/100. At home, her readings are averaging 120/80. She is currently taking bystolic 5 mg PO daily and lisinopril 40 mg PO daily. She went to urgent care a few weeks ago and had a reading of 200s/100s. During this visit she was off of anxiety meds. She is very anxious about these spikes at doctor's offices. We will start a blood pressure log at home and follow up on this in a month She has hyperlipidemia. Her last lipid panel (02/01/2022) was WNL. She is currently taking rosuvastatin 5 mg PO HS. She has concerns that she may be on the autism spectrum. She would like to see a specialist for diagnosis. She struggles in social settings and states others have noticed. Flu Shot: OVID vaccine: 07/2020, 08/2020, 03/2021, 03/2023Tdap: 05/2021Hep C Screening:WWE: 2020, dueLMP: 08/26/2023 [facility] [address], [place], [address], [facility] [employer] 09/09/2023 11:42:46 10/10/2023 text/html Janice Shepherd is he re for a one month follow up for hypertension and diabetes. Her A1C is down to 5.9, it was 9.4 (11/2022). We will recheck in 3 months. She previously had concerns with anxiety and potential ADHD. She has an appt with psych for next week. She had issues with her BP. Her BP on arrival today is 180/110. We started a BP log after her last visit. Her BPs at home for the last month have averaged 140-160s-90/110. She is currently taking bystolic 5 mg PO daily and lisinopril 40 mg PO daily. She does have occasional headaches. She declines ringing in her ears. She had an injury to her left orbital on Friday (09/30/2023). Her dog bit her face while playing. She went to , then ER. ER prescribed cefdinir 300 mg PO BID x 10 days and FlagyL 500 mg PO TID x 7 days. At the time of injury, she had bruising and swelling. In the days following the site was warm to the touch, red, and had purulent drainage. Today, there are small well approximately laceration, minimal swelling and redness. It appears to be healing well. [facility] [address], [place], [address], [employer] 10/10/2023 09:41:42 12/10/2023 text/html Janice Shepherd is a 32 year old female patient here today to discuss diabetic concerns She is unable to get Mounjaro 10 mg, we will order multiple doses so she can excelsior picker whatever is available. We have had difficulty getting controlling BP. Her BP on arrival is 172/110. Tawanda Mclain, [facility] [facility] [address], [address], [place], [address], [employer] 12/10/2023 11:33:51 OBGyn Episode No OBEpisode recorded.
[2024-07-25 17:07] VITALS: BP 125/90; PULSE 103; RESP 16; TEMP 36.8; O2SAT 100
[2024-07-25 17:25] LABS: Glucose Point of Care 61 mg/dl (65-105)
[2024-07-25] MEDS: SODIUM CHLORIDE 0.9% IV 1,000 ML 999 ML IV CONT ×3 (20:28→21:16)
[2024-07-25] MEDS: ONDANSETRON INJ 4 MG/2 ML VIAL IV PUSH (20:29)
[2024-07-25] MEDS: DEXTROSE 5%/0.9% SOD CHL 1,000 ML 100 ML IV CONT (20:29)
[2024-07-25 20:40] LABS: Basophils Absolute Auto 0.1 K/mm3 (0.0-0.1); Basophils Percent Auto 0.4 % (0.2-1.2); Eosinophils Percent Auto 6.3 % (0-4.4); Hematocrit 37.5 % (37.0-47.0); Hemoglobin 12.2 g/dL (12.0-15.0); Immature Granulocyte Absolute 0.06 K/mm3 (0.00-0.031); Immature Granulocyte Percent A 0.4 % (0-0.5); Lymphocytes Absolute Auto 3.13 K/mm3 (0.9-3.2); Lymphocytes Percent Auto 19.2 % (18.3-44.2); Mean Corpuscular HGB Conc 32.5 g/dl (32-36); Mean Corpuscular Hemoglobin 26.5 pg (26-34); Mean Corpuscular Volume 81.3 fl (80-100); Mean Platelet Volume 9.3 fl (7.4-10.4); Monocytes Absolute Auto 0.9 K/mm3 (0.1-0.6); Monocytes Percent Auto 5.7 % (2.6-8.5); Neutrophils Absolute Auto 11.1 K/mm3 (1.3-6.7); Platelet Count Result 464 k/mm3 (150-375); Red Blood Count 4.61 M/mm3 (4.2-5.4); Red Cell Distribution Width 13.8 % (11.5-14.5); White Blood Count 16.3 K/mm3 (4.5-10.0)
[2024-07-25] MEDS: DEXTROSE 50% 25 GM/50 ML SYRINGE IV PUSH (20:48)
[2024-07-25 20:50] LABS: Lactic Acid Reflex 1.1 mmol/L (0.7-2.0)
[2024-07-25 20:54] LABS: Alanine Aminotransferase 17 U/L (6-35); Albumin Level 4.3 g/dL (3.5-5.1); Alkaline Phosphatase 63 U/L (38-126); Anion Gap 18 mmol/L (4-12); Aspartate Amino Transferase 17 U/L (14-36); Bilirubin,Total 0.4 mg/dL (0.2-1.3); Blood Urea Nitrogen 59 mg/dL (7-17); Calcium 9.5 mg/dL (8.4-10.2); Carbon Dioxide 17 mmol/L (22-30); Chloride 102 mmol/L (98-107); Estimated CRCL calculation 13 ml/min; Estimated Glomerular Filt Rate 7; Glucose 60 mg/dL (65-110); Lipase 591 U/L (23-300); Sodium 137 mmol/L (137-145)
[2024-07-25 20:57] VITALS: BP 106/72; PULSE 100; RESP 15; O2SAT 100
[2024-07-25 20:57] LABS: Glucose Point of Care 53 mg/dl (65-105)
--- NOTE | 2024-07-25 21:10 | ED_ITS ---
HPI - General Adult General Chief complaint: Unspecified Stated complaint: hypoglycemia Time Seen by Provider: 07/25/24 19:53 History of Present Illness HPI narrative: Patient is a 31-year-old female who presents emergency department with chief complaint of hyperglycemia. Patient reports she is a type 2 diabetic takes glipizide and takes meds RO. The patient states that she started feeling unwell yesterday and noticed her blood sugar was low the patient also reports that she has had nausea vomiting diarrhea and abdominal discomfort over the last week. Patient states she feels as though she is dehydrated patient denies fever reports that she has not had problems with hypoglycemia before in the past Related Data Home Medications ?Medication ?Instructions ?Recorded ?Confirmed ?Last Taken ?Type buspirone 7.5 mg tablet 7.5 mg PO BID 10/01/23 10/01/23 Unknown History dapagliflozin propanediol 5 mg 5 mg PO DAILY 10/01/23 10/01/23 Unknown History tablet (Farxiga) glipizide 5 mg tablet 5 mg PO BID 10/01/23 10/01/23 Unknown History lisinopril 40 mg tablet 40 mg PO DAILY 10/01/23 10/01/23 Unknown History metformin 1,000 mg tablet 1,000 mg PO DAILY 10/01/23 10/01/23 Unknown History nebivolol 5 mg tablet 5 mg PO DAILY 10/01/23 10/01/23 Unknown History rosuvastatin 5 mg tablet 5 mg PO HS 10/01/23 10/01/23 Unknown History sertraline 50 mg tablet 50 mg PO DAILY 10/01/23 10/01/23 Unknown History tirzepatide 7.5 mg/0.5 mL 7.5 mg subcut WEEKLY 10/01/23 10/01/23 Unknown History subcutaneous pen injector (Mounjaro) Allergies Allergy/AdvReac Type Severity Reaction Status Date / Time amoxicillin Allergy Unknown Verified 10/03/23 07:24 clindamycin Allergy Rash Verified 10/03/23 07:24 Penicillins Allergy Unknown Verified 10/03/23 07:24 Review of Systems 2 Review of Systems: A 10 system review of systems was completed on the patient and is negative except for what is stated in the HPI. Nursing and ancillary documentation was reviewed. [facility] Past Medical History Medical History Diabetes Obese Social History Social History Smoking status: Never smoker Gender identity (if verbalized by the patient): Female Exam 2 Narrative: GENERAL: Well-appearing, well-nourished, and in no acute distress. HEAD: Normocephalic, atraumatic. EYES: PERRLA and EOMI. ENT: Nares clear, no rhinorrhea or epistaxis. Mucous membranes moist. NECK: Supple. CHEST: Clear to auscultation. No respiratory distress. HEART: Regular rate and rhythm. No murmur heard. Normal peripheral pulses. ABDOMEN: Soft, nontender, nondistended, normal active bowel sounds. EXTREMITIES: Normal range of motion. No edema. SKIN: Warm, dry, no rash. NEURO: No focal deficits. Alert and oriented x3. PSYCH: Normal mood and affect. Course Vital Signs Vital signs: Vital Signs Temperature 36.8 C 07/25/24 17:07 Pulse Rate 103 H 07/25/24 17:07 Respiratory Rate 16 07/25/24 17:07 Blood Pressure 125/90 07/25/24 17:07 Pulse Oximetry 100 07/25/24 17:07 Oxygen Delivery Room Air 07/25/24 17:07 Temperature 36.8 C 07/25/24 17:07 Pulse Rate 100 07/25/24 20:57 Respiratory Rate 15 07/25/24 20:57 Blood Pressure 106/72 07/25/24 20:57 Pulse Oximetry 100 07/25/24 20:57 Oxygen Delivery Room Air 07/25/24 17:07 Medical Decision Making [facility] Narrative Medical decision making narrative: Differential diagnosis includes electrolyte abnormality, dehydration, colitis, diverticulitis, renal failure, over medication Laboratory studies were obtained that showed a glucose 53 patient had a CO2 of 17 potassium of 4.0 and BUN of 59 and a creatinine of 6.94 the patient has a baseline creatinine of 0.6 2 L of normal saline were bolus to the patient he also was given D50 and also started on a D5 drip CT scan showed no evidence of obstructing stone Urinalysis did show evidence of UTI blood cultures were obtained the patient started on Rocephin the patient will be admitted to the hospital for further care Vital Signs Vital Signs: Vital Signs Temperature 36.8 C 07/25/24 17:07 Pulse Rate 103 H 07/25/24 17:07 Respiratory Rate 16 07/25/24 17:07 Blood Pressure 125/90 07/25/24 17:07 Pulse Oximetry 100 07/25/24 17:07 Oxygen Delivery Room Air 07/25/24 17:07 Temperature 36.8 C 07/25/24 17:07 Pulse Rate 100 07/25/24 20:57 Respiratory Rate 15 07/25/24 20:57 Blood Pressure 106/72 07/25/24 20:57 Pulse Oximetry 100 07/25/24 20:57 Oxygen Delivery Room Air 07/25/24 17:07 Lab Data 07/25/24 20:30 07/25/24 20:30 Labs: Lab Results 07/25/24 07/25/24 07/25/24 Range/Units 17:02 20:30 20:33 WBC 16.3 H (4.5-10.0) K/mm3 RBC 4.61 (4.2-5.4) M/mm3 Hgb 12.2 (12.0-15.0) g/dL Hct 37.5 (37.0-47.0) % MCV 81.3 (80-100) fl MCH 26.5 (26-34) pg MCHC 32.5 (32-36) g/dl RDW 13.8 (11.5-14.5) % Plt Count 464 H (150-375) k/mm3 MPV 9.3 (7.4-10.4) fl Immature Gran % (Auto) 0.4 (0-0.5) % Neut % (Auto) 68.0 (45.5-73.1) % Lymph % (Auto) 19.2 (18.3-44.2) % [place] % (Auto) 5.7 (2.6-8.5) % Eos % (Auto) 6.3 H (0-4.4) % Baso % (Auto) 0.4 (0.2-1.2) % Lymph # (Auto) 3.13 (0.9-3.2) K/mm3 [place] # (Auto) 0.9 H (0.1-0.6) K/mm3 Eos # (Auto) 1.0 H (0-0.3) K/mm3 Baso # (Auto) 0.1 (0.0-0.1) K/mm3 Abs Immat Gran (auto) 0.06 H (0.00-0.031) K/mm3 Absolute Neuts (auto) 11.1 H (1.3-6.7) K/mm3 Absolute Nucleated RBC 0.000 (0.0-0.012) K/mm3 Nucleated RBC % 0.0 (0.0-0.2) % Sodium 137 (137-145) mmol/L Potassium 4.0 (3.4-5.0) mmol/L Chloride 102 (98-107) mmol/L Carbon Dioxide 17 L (22-30) mmol/L Anion Gap 18 H (4-12) mmol/L BUN 59 H D (7-17) mg/dL Creatinine 6.94 H (0.7-1.0) mg/dL Estim Creat Clear Calc 13 ml/min Estimated GFR 7 L (59 - ) Glucose 60 L (65-110) mg/dL POC Capillary Glucose 61 L 53 L* (65-105) mg/dl Lactic Acid 1.1 (0.7-2.0) mmol/L Calcium 9.5 (8.4-10.2) mg/dL Total Bilirubin 0.4 (0.2-1.3) mg/dL AST 17 (14-36) U/L ALT 17 (6-35) U/L Alkaline Phosphatase 63 (38-126) U/L Total Protein 8.0 (6.3-8.2) g/dL Albumin 4.3 (3.5-5.1) g/dL Lipase 591 H (23-300) U/L Urine Color Yellow (Yellow) Urine Appearance Turbid H (Clear) Urine pH 5.0 (5.0-9.0) Ur Specific [place] 1.014 (1.001-1.035) Urine Protein 2+ H (Negative) mg/dL Urine Glucose (UA) 1+ H (Negative) mg/dL Urine Ketones Trace H (Negative) mg/dL Ur Blood (Man) Negative (Negative) Urine Nitrate Negative (Negative) Urine Bilirubin Negative (Negative) Urine Urobilinogen 0.2 (<2.0) mg/dL Add Ur Microanalysis Reviewed Leukocyte Esterase Rfl 2+ H (Negative) SIMA/UL Urine RBC 11-20 H (0-2) /hpf Urine WBC 21-50 H (0-3) /hpf Ur Squamous Epith Cells Few (Few) /hpf Urine Bacteria 4+ H /hpf Urine Casts 3-5 Influenza A (RT-PCR) Negative (Negative) Influenza B (RT-PCR) Negative (Negative) RSV (RT-PCR) Negative (Negative) SARS-CoV-2 RNA (RT-PCR) Negative (Negative) 07/25/24 07/25/24 Range/Units 21:15 22:21 WBC (4.5-10.0) K/mm3 RBC (4.2-5.4) M/mm3 Hgb (12.0-15.0) g/dL Hct (37.0-47.0) % MCV (80-100) fl MCH (26-34) pg MCHC (32-36) g/dl RDW (11.5-14.5) % Plt Count (150-375) k/mm3 MPV (7.4-10.4) fl Immature Gran % (Auto) (0-0.5) % Neut % (Auto) (45.5-73.1) % Lymph % (Auto) (18.3-44.2) % [place] % (Auto) (2.6-8.5) % Eos % (Auto) (0-4.4) % Baso % (Auto) (0.2-1.2) % Lymph # (Auto) (0.9-3.2) K/mm3 [place] # (Auto) (0.1-0.6) K/mm3 Eos # (Auto) (0-0.3) K/mm3 Baso # (Auto) (0.0-0.1) K/mm3 Abs Immat Gran (auto) (0.00-0.031) K/mm3 Absolute Neuts (auto) (1.3-6.7) K/mm3 Absolute Nucleated RBC (0.0-0.012) K/mm3 Nucleated RBC % (0.0-0.2) % Sodium (137-145) mmol/L Potassium (3.4-5.0) mmol/L Chloride (98-107) mmol/L Carbon Dioxide (22-30) mmol/L Anion Gap (4-12) mmol/L BUN (7-17) mg/dL Creatinine (0.7-1.0) mg/dL Estim Creat Clear Calc ml/min Estimated GFR (59 - ) Glucose (65-110) mg/dL POC Capillary Glucose 140 H 95 (65-105) mg/dl Lactic Acid (0.7-2.0) mmol/L Calcium (8.4-10.2) mg/dL Total Bilirubin (0.2-1.3) mg/dL AST (14-36) U/L ALT (6-35) U/L Alkaline Phosphatase (38-126) U/L Total Protein (6.3-8.2) g/dL Albumin (3.5-5.1) g/dL Lipase (23-300) U/L Urine Color (Yellow) Urine Appearance (Clear) Urine pH (5.0-9.0) Ur Specific [place] (1.001-1.035) Urine Protein (Negative) mg/dL Urine Glucose (UA) (Negative) mg/dL Urine Ketones (Negative) mg/dL Ur Blood (Man) (Negative) Urine Nitrate (Negative) Urine Bilirubin (Negative) Urine Urobilinogen (<2.0) mg/dL Add Ur Microanalysis Leukocyte Esterase Rfl (Negative) SIMA/UL Urine RBC (0-2) /hpf Urine WBC (0-3) /hpf Ur Squamous Epith Cells (Few) /hpf Urine Bacteria /hpf Urine Casts Influenza A (RT-PCR) (Negative) Influenza B (RT-PCR) (Negative) RSV (RT-PCR) (Negative) SARS-CoV-2 RNA (RT-PCR) (Negative) Critical Care Time Critical Care Time Critical Care Time: Yes Total Critical Care Time: 35 Discharge Plan Discharge Clinical Impression: Acute kidney injury, UTI (urinary tract infection), Diarrhea Patient Disposition: Still a Patient Condition: Stable Patient Language: Icelandic Prescriptions: No Action metformin 1,000 mg tablet 1,000 mg PO DAILY buspirone 7.5 mg tablet 7.5 mg PO BID lisinopril 40 mg tablet 40 mg PO DAILY sertraline 50 mg tablet 50 mg PO DAILY glipizide 5 mg tablet 5 mg PO BID rosuvastatin 5 mg tablet 5 mg PO HS nebivolol 5 mg tablet 5 mg PO DAILY dapagliflozin propanediol [Farxiga] 5 mg tablet 5 mg PO DAILY Mounjaro 7.5 mg/0.5 mL pen injector 7.5 mg SUBCUT WEEKLY cefdinir 300 mg capsule 300 mg PO Q12H 10 Days Qty: 20 0RF metronidazole 500 mg tablet 500 mg PO Q8H Qty: 21 0RF bacitracin [Bacitraycin Plus] 500 unit/gram ointment 1 applic topical TID Qty: 14 0RF Follow-up/Referrals: PHYSICIAN NOT ON STAFF,NONSTAFF [Primary Care Provider] - Time of Disposition: 22:43
[2024-07-25 21:15] LABS: Add Urine Microscopic? YES; Appearance Urine Turbid (Clear); Bacteria Urine 4+ /hpf; Bilirubin Urine Negative (Negative); Blood Urine Negative (Negative); Color Urine Yellow (Yellow); Glucose Urine UA 1+ mg/dL (Negative); Influenza A QL RT-PCR Negative (Negative); Influenza B QL RT-PCR Negative (Negative); Ketones Urine Trace mg/dL (Negative); Leukocyte Esterase Ur 2+ LEU/UL (Negative); Need Manual Microscopic Reviewed; Nitrate Urine Negative (Negative); Protein Urine 2+ mg/dL (Negative); RSV RNA, RT-PCR Negative (Negative); SARS-CoV-2 RNA PCR Negative (Negative); Specific Grav Ur 1.014 (1.001-1.035); Squamous Epithelial Cell Urine Few /hpf (Few); Urobilinogen Urine 0.2 mg/dL (<2.0); WBC Urine 21-50 /hpf (0-3)
[2024-07-25 21:19] LABS: Glucose Point of Care 140 mg/dl (65-105)
[2024-07-25 22:23] LABS: Glucose Point of Care 95 mg/dl (65-105)
--- NOTE | 2024-07-25 22:37 | PM.IMHP ---
H&P: HPI History of Present Illness Date/Time: 07/25/24 22:37 Chief Complaint: Hypoglycemia Narrative: 33 y/o F presents here with hypoglycemia with past medical history of type 2 diabetes. The patient presents here from home for further evaluation of hypoglycemia. She reports that she began experiencing low blood sugars around 4:00 p.m. today?. She checked her glucose 4p.m. which read 40, patient ate a piece of candy and repeated her sugar and 20 minutes which was 39. Glucose upon arrival was 61. She was given two juice, repeat was 53. Hypoglycemia is accompanied by nausea, vomiting, diarrhea, and abdominal pain that started on Friday (07/19). She is concerned she has become dehydrated given she has been experiencing vomiting and diarrhea with reduced urine output. She endorses bilateral flank pain. Denies fever, chills, body aches. No previous renal issues. Initial VS at presentation: 98.2? F, HR 103, R 16, 125/90, and 100% on RA. ED workup showed: WBC 16.3, no anemia, creatinine 6.94 and GFR 7 (previously 0.6 and GFR >60 on 10/03/2023), lactic 1.1, lipase 591, and UA consistent with UTI. Viral PCR negative. CT of the abdomen/pelvis showed hepatomegaly, inflammatory change surrounding the bladder, and nonobstructive uropathy. Review of Systems Review of Systems: All systems reviewed & are unremarkable except as noted in HPI and below PMFSH Past Medical History Medical History (Updated 07/25/24 @ 22:56 by Lauryn Khan APRN) Anxiety and depression Migraines HTN (hypertension) HLD (hyperlipidemia) DM2 (diabetes mellitus, type 2) Obese Surgical History Surgical History (Updated 07/25/24 @ 22:44 by Lauryn Khan APRN) History of tonsillectomy Social History Social History Smoking status: Never smoker Gender identity (if verbalized by the patient): Female Meds Home Medications and Allergies Home Medications ?Medication ?Instructions ?Recorded ?Confirmed ?Type buspirone 7.5 mg tablet 7.5 mg PO BID 10/01/23 10/01/23 History cefdinir 300 mg capsule 300 mg PO Q12H 10 days #20 caps 04/10/24 Rx dapagliflozin propanediol 5 mg 5 mg PO DAILY 10/01/23 10/01/23 History tablet (Farxiga) glipizide 5 mg tablet 5 mg PO BID 10/01/23 10/01/23 History lisinopril 40 mg tablet 40 mg PO DAILY 10/01/23 10/01/23 History metformin 1,000 mg tablet 1,000 mg PO DAILY 10/01/23 10/01/23 History nebivolol 5 mg tablet 5 mg PO DAILY 10/01/23 10/01/23 History rosuvastatin 5 mg tablet 5 mg PO HS 10/01/23 10/01/23 History sertraline 50 mg tablet 50 mg PO DAILY 10/01/23 10/01/23 History tirzepatide 7.5 mg/0.5 mL 7.5 mg subcut WEEKLY 10/01/23 10/01/23 History subcutaneous pen injector (Jacques) bacitracin 500 unit/gram topical 1 applic topical TID #14 grams 10/03/23 Rx ointment (Bacitraycin Plus) metronidazole 500 mg tablet 500 mg PO Q8H #21 tabs 10/03/23 Rx Allergies Allergy/AdvReac Type Severity Reaction Status Date / Time amoxicillin Allergy Unknown Verified 10/03/23 07:24 clindamycin Allergy Rash Verified 10/03/23 07:24 Penicillins Allergy Unknown Verified 10/03/23 07:24 Vital Signs Vital Signs - 24 hr 07/25/24 17:07 07/25/24 20:57 Temperature 98.2 F Pulse Rate 103 H 100 Respiratory Rate 16 15 Blood Pressure 125/90 106/72 Pulse Oximetry 100 100 Oxygen Delivery Room Air Exam Const: General: comfortable and no acute distress Other: , female, nontoxic appearance HENMT: Face/Nose/Sinus: Normal nares present Mouth: Yes moist mucous membranes Eyes: General: appearance normal, both eyes and all related structures Sclera: sclerae normal Pupils: Equal, round and reactive pupils present EOM: EOMs intact bilaterally Resp: Effort & Inspection: normal respiratory effort Auscultation: clear to auscultation bilaterally Cardio: Rate: regular rate Rhythm: regular rhythm Other: S1-S2 present without murmur, rub, ectopy GI: Other: Abdomen soft, nondistended, nontender. Hyperactive bowel sounds in all quadrants. : Other: + CVA tenderness bilaterally Skin: General skin exam: normal color and no rashes or lesions noted Wounds: no wounds Neuro: Speech: normal speech Motor exam (neuro): 5/5 motor strength present throughout Sensory Exam: normal sensation Other: A&O x4 Extrem: General: normal to inspection Psych: Mental Status: mental status grossly normal Affect: normal affect Other: Good insight and judgment, pleasant H&P: Results Labs Labs: Short CBC 07/25/24 Range/Units 20:30 WBC 16.3 H (4.5-10.0) K/mm3 Hgb 12.2 (12.0-15.0) g/dL Hct 37.5 (37.0-47.0) % Plt Count 464 H (150-375) k/mm3 BMP 07/25/24 20:30 Sodium 137 Potassium 4.0 Chloride 102 Carbon Dioxide 17 L BUN 59 H D Creatinine 6.94 H Glucose 60 L Calcium 9.5 Liver Function 07/25/24 Range/Units 20:30 Total Bilirubin 0.4 (0.2-1.3) mg/dL AST 17 (14-36) U/L ALT 17 (6-35) U/L Alkaline Phosphatase 63 (38-126) U/L Albumin 4.3 (3.5-5.1) g/dL Urine 07/25/24 Range/Units 20:30 Urine Color Yellow (Yellow) Urine Appearance Turbid H (Clear) Urine pH 5.0 (5.0-9.0) Ur Specific [place] 1.014 (1.001-1.035) Urine Protein 2+ H (Negative) mg/dL Urine Glucose (UA) 1+ H (Negative) mg/dL Assessment and Plan Assessment and plan (1) Sepsis: Qualifiers: Acute renal failure type: unspecified Sepsis acute organ dysfunction status: with acute organ dysfunction Sepsis type: sepsis due to unspecified organism Severe sepsis acute organ dysfunction type: acute renal failure Severe sepsis shock status: without septic shock Qualified Code(s): A41.9 - Sepsis, unspecified organism; R65.20 - Severe sepsis without septic shock; N17.9 - Acute kidney failure, unspecified Code(s): A41.9 - Sepsis, unspecified organism Status: Acute Assessment and Plan: - meets SIRS criteria: HR, WBC. No hypotension or hypoxia. - lactic acid: 1.1 - add procalcitonin - 30 mL/kg = 3.2L, given 3L bolus. - suspected source: UTI - started on ceftriaxone - blood cultures drawn on 07/25, follow - UA consistent with UTI - CT abd/pelvis: Hepatomegaly. Inflammatory change surrounding the bladder. No obstructive uropathy. - monitor hemodynamic stability (2) UTI (urinary tract infection): Qualifiers: Hematuria presence: without hematuria Urinary tract infection type: acute cystitis Qualified Code(s): N30.00 - Acute cystitis without hematuria Code(s): N39.0 - Urinary tract infection, site not specified Status: Acute Assessment and Plan: - UA: Turbid, 2+ protein, 1+ glucose, trace ketones, 2+ leuks, 11-20 RBC, 21-50 WBC, few epithelial cells, 4+ bacteria. - UC pending - no previous micro available for review - started on Ceftriaxone on 07/25 (3) Acute renal failure: Qualifiers: Acute renal failure type: unspecified Qualified Code(s): N17.9 - Acute kidney failure, unspecified Code(s): N17.9 - Acute kidney failure, unspecified Status: Acute Assessment and Plan: - creatinine 6.94 and GFR 7, previously 0.6 and GFR >60 on 10/03/2023 - renal ultrasound - add CK, urine sodium, protein/creatinine, urea - UA showed 2+ protein - bladder scan for postvoid residual - monitor I&Os, may need Jovel placed for accurate I&Os if unable to measure via hat due to diarrhea - nephrology consulted, awaiting recs - IV fluids: 3L bolus -> D5/NS 150 mL/hr - hold lisinopril (4) Hypoglycemia associated with type 2 diabetes mellitus: Code(s): E11.649 - Type 2 diabetes mellitus with hypoglycemia without coma Status: Acute Assessment and Plan: - hypoglycemia protocol - POC blood glucose Q6H - hold home medication: Farxiga, Glipizide, Mounjaro, metformin - correct regimen ordered - high dose TIDWM, based off BMI - A1C ordered (5) Pancreatitis: Qualifiers: Acute pancreatitis complication: unspecified Chronicity: acute Pancreatitis type: unspecified pancreatitis type Qualified Code(s): K85.90 - Acute pancreatitis without necrosis or infection, unspecified Code(s): K85.90 - Acute pancreatitis without necrosis or infection, unspecified Status: Acute Assessment and Plan: - lipase 591, trend - limited to of pancreas on CT due to lack of contrast - IV fluids - analgesics p.r.n. Plan Given length of diarrhea, will add stool culture. lomotil prn. Diet: Clear liquids GI Prophylaxis: Not currently indicated DVT Prophylaxis: SCDs Lines: Peripheral Code Status: Full code Quality VTE Prophylaxis VTE prophylaxis: mechanical ordered Hospitalist [facility] Advance Care Plan I have confirmed that the patient's Advanced Care Plan is present, code status is documented, or surrogate decision maker is listed in patient medical record.: Yes Medication Reconciliation I have utilized all available resources to obtain, update and review the patients current medications (includes all prescriptions, OTC, herbals, cannabis, and nutritional supplements).: Yes
[2024-07-25] MEDS: DEXTROSE 5%/0.9% SOD CHL 1,000 ML 150 ML IV CONT (23:04)
[2024-07-25 23:23] LABS: Creatinine Urine 160.2 mg/dL; Total Protein Urine Random 134 mg/dL; Ur Ttl Prot Creatinine Ratio 0.84 mg/mg (0-0.20)
[2024-07-25 23:24] LABS: Magnesium 1.9 mg/dL (1.6-2.3); Phosphorus 4.9 mg/dL (2.5-4.5)
[2024-07-25 23:27] LABS: Urea Random Urine 172 MG/DL
[2024-07-25 23:28] LABS: Sodium Urine Random 52 meq/L
--- NOTE | 2024-07-25 23:30 | PC.NURSE ---
Hospitalist at bedside advises to hold off on parikh catheter.
[2024-07-25 23:32] VITALS: BMI 40.5
[2024-07-25 23:41] LABS: Procalcitonin 0.6 ng/mL
[2024-07-25 23:43] LABS: Creatine Kinase 31 U/L (30-135)
--- NOTE | 2024-07-25 23:54 | ADMGEN ---
This patient, Janice Monteiro Joao, was admitted to 3 Medical Room 340-01. Patient/family oriented to hospital policies and general routines including ID bracelet, bed and alarms, visiting hours, pain management, procedures, bathroom and other care routines, personal items, smoking policy, room service/diet, and visiting hours. Information on how to activate the Rapid Response Team has been discussed. Patient/Family are encouraged to report perceived risks to care and to ask questions if they do not understand what they are told or what they should do.
[2024-07-26 00:05] VITALS: BP 136/90; PULSE 112; RESP 18; TEMP 36.1; O2SAT 100
[2024-07-26] MEDS: HYDROcodone/acetaminophen (*CRX) 5-325 MG TABLET 1 TAB PO ×5 (00:35→23:36)
[2024-07-26] MEDS: ONDANSETRON INJ 4 MG/2 ML VIAL IV PUSH (00:35)
[2024-07-26] MEDS: DEXTROSE 50% 25 GM/50 ML SYRINGE IV PUSH ×2 (01:06→10:02)
[2024-07-26 01:14] LABS: Glucose Point of Care 64 mg/dl (65-105)
[2024-07-26 01:14] LABS: Glucose Point of Care 59 mg/dl (65-105)
[2024-07-26] MEDS: MORPHINE SULFATE (*CRX) 2 MG/ML INJ IV PUSH ×2 (01:31→07:54)
[2024-07-26 01:36] LABS: Glucose Point of Care 104 mg/dl (65-105)
[2024-07-26] MEDS: DIPHENOXYLATE/ATROPINE (*CRX) 2.5 MG TABLET 1 TABLET PO (02:26)
[2024-07-26 02:32] LABS: Glucose Point of Care 123 mg/dl (65-105)
[2024-07-26] MEDS: DEXTROSE 5%/0.9% SOD CHL 1,000 ML 150 ML IV CONT (04:34)
[2024-07-26 05:58] LABS: Basophils Percent Auto 0.3 % (0.2-1.2); Eosinophils Absolute Auto 0.5 K/mm3 (0-0.3); Eosinophils Percent Auto 4.5 % (0-4.4); Hematocrit 32.1 % (37.0-47.0); Hemoglobin 10.2 g/dL (12.0-15.0); Immature Granulocyte Absolute 0.04 K/mm3 (0.00-0.031); Immature Granulocyte Percent A 0.3 % (0-0.5); Lymphocytes Absolute Auto 1.73 K/mm3 (0.9-3.2); Lymphocytes Percent Auto 14.3 % (18.3-44.2); Mean Corpuscular HGB Conc 31.8 g/dl (32-36); Mean Corpuscular Hemoglobin 26.4 pg (26-34); Mean Corpuscular Volume 83.2 fl (80-100); Mean Platelet Volume 9.4 fl (7.4-10.4); Monocytes Absolute Auto 0.6 K/mm3 (0.1-0.6); Monocytes Percent Auto 4.8 % (2.6-8.5); Neutrophils Absolute Auto 9.2 K/mm3 (1.3-6.7); Neutrophils Percent Auto 75.8 % (45.5-73.1); Platelet Count Result 341 k/mm3 (150-375); Red Blood Count 3.86 M/mm3 (4.2-5.4); Red Cell Distribution Width 13.8 % (11.5-14.5); White Blood Count 12.1 K/mm3 (4.5-10.0)
[2024-07-26 06:00] VITALS: BP 112/67; PULSE 93; RESP 18; TEMP 36.6; O2SAT 100
[2024-07-26 06:08] LABS: Glucose Point of Care 94 mg/dl (65-105)
[2024-07-26 06:16] LABS: Alanine Aminotransferase 14 U/L (6-35); Albumin Level 3.2 g/dL (3.5-5.1); Alkaline Phosphatase 48 U/L (38-126); Anion Gap 15 mmol/L (4-12); Aspartate Amino Transferase 16 U/L (14-36); Bilirubin,Total 0.3 mg/dL (0.2-1.3); Blood Urea Nitrogen 57 mg/dL (7-17); Calcium 7.7 mg/dL (8.4-10.2); Carbon Dioxide 13 mmol/L (22-30); Chloride 109 mmol/L (98-107); Estimated CRCL calculation 14 ml/min; Estimated Glomerular Filt Rate 7; Glucose 94 mg/dL (65-110); Lipase 988 U/L (23-300); Magnesium 1.9 mg/dL (1.6-2.3); Phosphorus 4.7 mg/dL (2.5-4.5); Sodium 137 mmol/L (137-145)
[2024-07-26] MEDS: SERTRALINE HCL 50 MG TABLET PO (07:54)
[2024-07-26] MEDS: busPIRone HCL 2.5 MG, busPIRone HCL 5 MG 7.5 MG PO ×2 (07:54→21:22)
[2024-07-26 08:00] VITALS: O2SAT 100
--- NOTE | 2024-07-26 08:31 | PC.NURSE ---
9 am medications given early as patient was scheduled to be out of her room for am procedure.
--- NOTE | 2024-07-26 08:42 | P.PNIM_ITS ---
Progress Note: A&P Assessment and Plan (1) Acute renal failure: Qualifiers: Acute renal failure type: unspecified Qualified Code(s): N17.9 - Acute kidney failure, unspecified Code(s): N17.9 - Acute kidney failure, unspecified Status: Acute Assessment and Plan: patient presented to the emergency department with days nausea vomiting diarrhea most severe dehydration unknown infectious cause what does appear to possible pancreatitis * nephrology consulted * creatinine 6.94 and GFR 7, previously 0.6 and GFR >60 on 10/03/2023 * aggressive IV fluids * renal ultrasound * prerenal? * add CK, urine sodium, protein/creatinine, urea * UA showed 2+ protein * monitor I&Os, may need Parikh placed for accurate I&Os if unable to measure via hat due to diarrhea * IV fluids: 3L bolus -> D5/NS 150 mL/hr * patient will need to discontinue her lisinopril and hydrochlorothiazide inpatient and on discharge will also discontinue her glipizide which is likely causing her hypoglycemia due to ALYSON and dehydration * Placed parikh catheter for strict I&O's poor reported urinary output (2) Pancreatitis: Qualifiers: Acute pancreatitis complication: unspecified Chronicity: acute Pancreatitis type: unspecified pancreatitis type Qualified Code(s): K85.90 - Acute pancreatitis without necrosis or infection, unspecified Code(s): K85.90 - Acute pancreatitis without necrosis or infection, unspecified Status: Acute Assessment and Plan: * lipase 591, trend * limited to of pancreas on CT due to lack of contrast * IV fluids * analgesics p.r.n. * PPI * antiemetics * lipase trending up continue with daily lipase * clear liquid diet will advance as tolerated * Will need to discontinue her GLP1 medication * Lipid panel pending to evaluate hypertriglyceridemia (3) Dehydration: Code(s): E86.0 - Dehydration Status: Acute Assessment and Plan: * N/V/D for multiple days likely viral infection * likely secondary to pancreatitis possibly from GLP1 medication may need to discontinue * Lipid panel ordered * Aggressive IV fluids (4) Hypoglycemia associated with type 2 diabetes mellitus: Code(s): E11.649 - Type 2 diabetes mellitus with hypoglycemia without coma Status: Acute Assessment and Plan: patient with severe hypoglycemia POA slightly secondary to patient's continued dehydration, nausea, vomiting diarrhea and acute kidney injury while she was taking was taking glipizide also on a GLP 1 * initially started on D5 half-normal saline * will increase to D10 still having episodes of hypoglycemia * patient will recommend to discontinue her use of glipizide and GLP 1 at discharge * Accu-Cheks Q 6 hours * patient with good oral intake but poor urinary output * hypoglycemic protocol in place (5) UTI (urinary tract infection): Qualifiers: Hematuria presence: without hematuria Urinary tract infection type: acute cystitis Qualified Code(s): N30.00 - Acute cystitis without hematuria Code(s): N39.0 - Urinary tract infection, site not specified Status: Acute Assessment and Plan: * UA: Turbid, 2+ protein, 1+ glucose, trace ketones, 2+ leuks, 11-20 RBC, 21-50 WBC, few epithelial cells, 4+ bacteria. * UC pending * no previous micro available for review * started on Ceftriaxone on 2/ L (6) Obese: Code(s): E66.9 - Obesity, unspecified Status: Acute Assessment and Plan: * encourage increased on physical activity and lifestyle modifications * Stress monitoring * encourage outpatient weight loss clinic * Diet exercise counseling done. Plan Code status: Full code per patient DVT prophylaxis: Lovenox Stress ulcer prophylaxis: Protonix 40 daily PT/OT notes: Ambulatory Disposition: patient continues admission to the medical unit for further evaluation and treatment of hypoglycemia, acute kidney injury, and pancreatitis we will continue with aggressive IV hydration consult to Nephrology for further recommendations on acute kidney injury and close monitoring of hypoglycemia with D10/NS. patient is ambulatory on own and plan will be to return home when [facility] stable Time Spent With Patient Time with patient: 15 - 25 minutes Subjective Date/time seen: 07/26/24 08:43 Interval history: Patient is a 33-year-old female who was admitted to the medical unit for further evaluation hypoglycemia and acute kidney injury secondary to nausea vomiting diarrhea. 07/26/24: Assumed care patient with acute kidney injury reported multiple days N/V/D was found to have acute kidney injury with creatinine at 6.94 POA and hypoglycemia. On glipizide likely cause secondary to ALYSON Patient still with some nausea but no vomiting or diarrhea, states she feels better but still with chills. Review of Systems Review of Systems: All systems reviewed & are unremarkable except as noted in HPI and below Exam Narrative: * GENERAL: Pleasant Alert and oriented x 3. Obese female in No acute distress. * EYES: EOMI. No scleral icterus. PERRLA. * HEENT: Moist mucous membranes. * LUNGS: Clear to auscultation bilaterally. No accessory muscle use. * CARDIOVASCULAR: Regular rate and rhythm. No murmur. No JVD. S1-S2 * ABDOMEN: Soft, tenderness and non-distended. No palpable masses. * EXTREMITIES: No edema. Non-tender * SKIN: No rashes or lesions. Skin warm, dry. * NEUROLOGIC: No focal neurological deficits. CN II-XII grossly intact * PSYCHIATRIC: Appropriate mood and affect. Good judgement and insight. Objective Data Vital Signs Vital Signs: Vital Signs - 24 hr 07/25/24 17:07 07/25/24 20:57 07/26/24 00:05 Temperature 98.2 F 97 F L Pulse Rate 103 H 100 112 H Respiratory Rate 16 15 18 Blood Pressure 125/90 106/72 136/90 Pulse Oximetry 100 100 100 Oxygen Delivery Room Air 07/26/24 06:00 Temperature 97.9 F Pulse Rate 93 Respiratory Rate 18 Blood Pressure 112/67 Pulse Oximetry 100 Oxygen Delivery Intake/Output Intake/Output: Intake & Output 07/23/24 07/24/24 07/25/24 07/26/24 23:59 23:59 23:59 23:59 Intake Total 3240 945 Output Total 100 Balance 3240 845 Meds/Results Medications: Active Medications Generic Name Dose Route Start Last Admin Trade Name Freq PRN Reason Stop Dose Admin Acetaminophen 650 mg 07/25/24 22:39 Acetaminophen 325 Mg Tablet PO Q4H PRN Mild Pain (1-3) or Fever Hydrocodone Bitart/Acetaminophen 1 tab 07/26/24 00:18 07/26/24 00:35 Hydrocodone/Acetaminophen (*Crx) 5-325 Mg Tablet PO 1 tab Q4H PRN Administration Pain Rated 4-6 Buspirone HCl 2.5 mg/ 7.5 mg 07/26/24 09:00 07/26/24 07:54 Buspirone HCl 5 mg PO 7.5 mg Q12HR VICENTA Administration Dextrose 12.5 gm 07/25/24 22:53 07/26/24 01:06 Dextrose 50% 25 Gm/50 Ml Syringe IV PUSH 12.5 gm PRN PRN Administration Hypoglycemia Protocol Diphenoxylate HCl/Atropine 1 tablet 07/25/24 23:36 07/26/24 02:26 Diphenoxylate/Atropine (*Crx) 2.5 Mg Tablet PO 1 tablet PRN PRN Administration Diarrhea Glucagon 1 mg 07/25/24 22:53 Glucagon For Inj 1 Mg Vial IM PRN PRN Hypoglycemia Protocol Glucose 15 gm 07/25/24 22:53 Glucose Oral Gel 15 Gm Of Glucse In 37.5 Gm Tube PO PRN PRN Hypoglycemia Protocol Hydroxyzine HCl 10 mg 07/26/24 07:24 Hydroxyzine Hcl 10 Mg Tablet PO BID PRN anxiety Ceftriaxone Sodium 1 gm in 50 mls @ 100 mls/hr 07/26/24 22:00 Rocephin 1 Gm/Ns 50 Ml IVPB Q24H VICENTA Dextrose/Sodium Chloride 1,000 mls @ 150 mls/hr 07/25/24 22:40 07/26/24 04:34 Dextrose 5% Sodium Chloride 0.9% IV CONT 150 mls/hr .Q6H40M VICENTA Administration Dextrose 1,000 mls @ 100 mls/hr 07/25/24 22:53 Dextrose 5% 1,000 Ml IVPB PRN PRN Hypoglycemia Protocol Insulin Aspart 4 - 8 units 07/26/24 08:00 Insulin Aspart (*Bkc) 100 Units/Ml SUB-Q TIDWM [facility] Protocol Loratadine 10 mg 07/26/24 07:45 Loratadine 10 Mg Tablet PO DAILY PRN allergy symptoms Metoprolol Succinate 50 mg 07/26/24 21:00 Metoprolol Succinate Ext Rel 50 Mg Tabcr PO HS [facility] Morphine Sulfate 2 mg 07/26/24 00:18 07/26/24 07:54 Morphine Sulfate (*Crx) 2 Mg/Ml Inj IV PUSH 2 mg Q4H PRN Administration Pain Rated 7-10 Ondansetron HCl 4 mg 07/25/24 22:39 07/26/24 00:35 Ondansetron Inj 4 Mg/2 Ml Vial IV PUSH 4 mg Q4H PRN Administration Nausea Rosuvastatin Calcium 5 mg 07/26/24 21:00 Rosuvastatin 5 Mg Tablet PO HS [facility] Sertraline HCl 50 mg 07/26/24 09:00 07/26/24 07:54 Sertraline Hcl 50 Mg Tablet PO 50 mg DAILY VICENTA Administration Radiology Results: ITS Impressions Abdomen/Pelvis CT 07/25/24 21:52 IMPRESSION: Hepatomegaly. Inflammatory change surrounding the bladder. No obstructive uropathy. Renal Ultrasound 07/26/24 08:38 IMPRESSION: 1. Normal kidneys without hydronephrosis. Labs Labs: Laboratory Results - last 24 hr 07/25/24 07/25/24 07/25/24 17:02 20:30 20:33 WBC 16.3 H RBC 4.61 Hgb 12.2 Hct 37.5 MCV 81.3 MCH 26.5 MCHC 32.5 RDW 13.8 Plt Count 464 H MPV 9.3 Immature Gran % (Auto) 0.4 Neut % (Auto) 68.0 Lymph % (Auto) 19.2 [place] % (Auto) 5.7 Eos % (Auto) 6.3 H Baso % (Auto) 0.4 Lymph # (Auto) 3.13 [place] # (Auto) 0.9 H Eos # (Auto) 1.0 H Baso # (Auto) 0.1 Abs Immat Gran (auto) 0.06 H Absolute Neuts (auto) 11.1 H Absolute Nucleated RBC 0.000 Nucleated RBC % 0.0 Sodium 137 Potassium 4.0 Chloride 102 Carbon Dioxide 17 L Anion Gap 18 H BUN 59 H D Creatinine 6.94 H Estim Creat Clear Calc 13 Estimated GFR 7 L Glucose 60 L POC Capillary Glucose 61 L 53 L* Lactic Acid 1.1 Calcium 9.5 Phosphorus Magnesium Total Bilirubin 0.4 AST 17 ALT 17 Alkaline Phosphatase 63 Total Creatine Kinase Total Protein 8.0 Albumin 4.3 Lipase 591 H Procalcitonin Urine Color Yellow Urine Appearance Turbid H Urine pH 5.0 Ur Specific Strawberry 1.014 Urine Protein 2+ H Urine Glucose (UA) 1+ H Urine Ketones Trace H Ur Blood (Man) Negative Urine Nitrate Negative Urine Bilirubin Negative Urine Urobilinogen 0.2 Add Ur Microanalysis Reviewed Leukocyte Esterase Rfl 2+ H Urine RBC 11-20 H Urine WBC 21-50 H Ur Squamous Epith Cells Few Urine Bacteria 4+ H Urine Casts 3-5 U Random Total Protein 134 Ur Random Sodium Ur Random Urea Urine Creatinine 160.2 Protein/Creat Ratio 2 0.84 H Influenza A (RT-PCR) Negative Influenza B (RT-PCR) Negative RSV (RT-PCR) Negative SARS-CoV-2 RNA (RT-PCR) Negative 07/25/24 07/25/24 07/25/24 21:15 22:21 23:04 WBC RBC Hgb Hct MCV MCH MCHC RDW Plt Count MPV Immature Gran % (Auto) Neut % (Auto) Lymph % (Auto) [place] % (Auto) Eos % (Auto) Baso % (Auto) Lymph # (Auto) [place] # (Auto) Eos # (Auto) Baso # (Auto) Abs Immat Gran (auto) Absolute Neuts (auto) Absolute Nucleated RBC Nucleated RBC % Sodium Potassium Chloride Carbon Dioxide Anion Gap BUN Creatinine Estim Creat Clear Calc Estimated GFR Glucose POC Capillary Glucose 140 H 95 Lactic Acid Calcium Phosphorus 4.9 H Magnesium 1.9 Total Bilirubin AST ALT Alkaline Phosphatase Total Creatine Kinase 31 Total Protein Albumin Lipase Procalcitonin 0.6 Urine Color Urine Appearance Urine pH Ur Specific [place] Urine Protein Urine Glucose (UA) Urine Ketones Ur Blood (Man) Urine Nitrate Urine Bilirubin Urine Urobilinogen Add Ur Microanalysis Leukocyte Esterase Rfl Urine RBC Urine WBC Ur Squamous Epith Cells Urine Bacteria Urine Casts U Random Total Protein Ur Random Sodium 52 Ur Random Urea 172 Urine Creatinine Protein/Creat Ratio 2 Influenza A (RT-PCR) Influenza B (RT-PCR) RSV (RT-PCR) SARS-CoV-2 RNA (RT-PCR) 07/26/24 07/26/24 07/26/24 00:36 01:00 01:30 WBC RBC Hgb Hct MCV MCH MCHC RDW Plt Count MPV Immature Gran % (Auto) Neut % (Auto) Lymph % (Auto) [place] % (Auto) Eos % (Auto) Baso % (Auto) Lymph # (Auto) [place] # (Auto) Eos # (Auto) Baso # (Auto) Abs Immat Gran (auto) Absolute Neuts (auto) Absolute Nucleated RBC Nucleated RBC % Sodium Potassium Chloride Carbon Dioxide Anion Gap BUN Creatinine Estim Creat Clear Calc Estimated GFR Glucose POC Capillary Glucose 59 L* 64 L 104 Lactic Acid Calcium Phosphorus Magnesium Total Bilirubin AST ALT Alkaline Phosphatase Total Creatine Kinase Total Protein Albumin Lipase Procalcitonin Urine Color Urine Appearance Urine pH Ur Specific [place] Urine Protein Urine Glucose (UA) Urine Ketones Ur Blood (Man) Urine Nitrate Urine Bilirubin Urine Urobilinogen Add Ur Microanalysis Leukocyte Esterase Rfl Urine RBC Urine WBC Ur Squamous Epith Cells Urine Bacteria Urine Casts U Random Total Protein Ur Random Sodium Ur Random Urea Urine Creatinine Protein/Creat Ratio 2 Influenza A (RT-PCR) Influenza B (RT-PCR) RSV (RT-PCR) SARS-CoV-2 RNA (RT-PCR) 07/26/24 07/26/24 07/26/24 02:28 05:22 06:03 WBC 12.1 H RBC 3.86 L Hgb 10.2 L Hct 32.1 L MCV 83.2 MCH 26.4 MCHC 31.8 L RDW 13.8 Plt Count 341 MPV 9.4 Immature Gran % (Auto) 0.3 Neut % (Auto) 75.8 H Lymph % (Auto) 14.3 L [place] % (Auto) 4.8 Eos % (Auto) 4.5 H Baso % (Auto) 0.3 Lymph # (Auto) 1.73 [place] # (Auto) 0.6 Eos # (Auto) 0.5 H Baso # (Auto) 0.0 Abs Immat Gran (auto) 0.04 H Absolute Neuts (auto) 9.2 H Absolute Nucleated RBC 0.000 Nucleated RBC % 0.0 Sodium 137 Potassium 4.0 Chloride 109 H Carbon Dioxide 13 L Anion Gap 15 H BUN 57 H Creatinine 6.49 H Estim Creat Clear Calc 14 Estimated GFR 7 L Glucose 94 POC Capillary Glucose 123 H 94 Lactic Acid Calcium 7.7 L Phosphorus 4.7 H Magnesium 1.9 Total Bilirubin 0.3 AST 16 ALT 14 Alkaline Phosphatase 48 Total Creatine Kinase Total Protein 6.0 L Albumin 3.2 L Lipase 988 H Procalcitonin Urine Color Urine Appearance Urine pH Ur Specific [place] Urine Protein Urine Glucose (UA) Urine Ketones Ur Blood (Man) Urine Nitrate Urine Bilirubin Urine Urobilinogen Add Ur Microanalysis Leukocyte Esterase Rfl Urine RBC Urine WBC Ur Squamous Epith Cells Urine Bacteria Urine Casts U Random Total Protein Ur Random Sodium Ur Random Urea Urine Creatinine Protein/Creat Ratio 2 Influenza A (RT-PCR) Influenza B (RT-PCR) RSV (RT-PCR) SARS-CoV-2 RNA (RT-PCR) Quality VTE Prophylaxis VTE prophylaxis: mechanical ordered and pharmacologic ordered -Patient's previous records reviewed on admission -ER notes reviewed in detail on admission -discussed all findings and current treatment plan with patient/Family/POA -Consultations reviewed for recommendations -Patient's disposition for safe discharge discussed with top case assembler Dictation performed by [employer] direct speech recognition software, therefore recruiting intern variants and typographical errors may occur. Hospitalist MIPS Advance Care Plan I have confirmed that the patient's Advanced Care Plan is present, code status is documented, or surrogate decision maker is listed in patient medical record.: Yes Medication Reconciliation I have utilized all available resources to obtain, update and review the patients current medications (includes all prescriptions, OTC, herbals, canna bis, and nutritional supplements).: Yes The patient is not eligible for med reconciliation; the patient is in a emergent medical situation where delaying treatment would jeopardize the patients health.: No
[2024-07-26 08:46] LABS: Glucose Point of Care 62 mg/dl (65-105)
[2024-07-26 09:14] LABS: Glucose Point of Care 61 mg/dl (65-105)
[2024-07-26 09:17] LABS: Cholesterol 62 mg/dL (0-200); HDL Direct 26 mg/dL; Triglycerides 82 mg/dL (<150)
[2024-07-26] MEDS: GLUCOSE ORAL GEL 15 GM OF GLUCSE IN 37.5 GM TUBE PO (09:17)
[2024-07-26] MEDS: PANTOPRAZOLE SODIUM IV 40 MG VIAL IV PUSH (09:21)
[2024-07-26 09:35] VITALS: BMI 40.5
[2024-07-26 09:36] LABS: LDL Cholesterol Direct < 30 mg/dL
[2024-07-26 09:49] LABS: Glucose Point of Care 64 mg/dl (65-105)
[2024-07-26] MEDS: SODIUM CHLORIDE IV CONT ×3 (10:13→23:36)
[2024-07-26] MEDS: DEXTROSE 10% IV CONT ×3 (10:13→23:36)
[2024-07-26 10:20] LABS: Hemoglobin A1C 5.8 % (<5.7)
[2024-07-26 10:37] LABS: Glucose Point of Care 93 mg/dl (65-105)
--- NOTE | 2024-07-26 11:17 | P.CONNP_ITS ---
Assessment and Plan Assessment and plan (1) ALYSON (acute kidney injury): Code(s): N17.9 - Acute kidney failure, unspecified Status: Acute Assessment and Plan: * improvement noted by trend of labs * history would suggest volume depletion * several days of nausea + vomiting + diarrhea * likely worsened by AJAY-I + HCTZ use prior to admission * pancreatitis playing a role(?) * may have developed a component of ATN for prolonged renal hypoperfusion * evaluation to date noted: * normal renal ultrasound * CT A/P negative (and no evidence of pancreatitis) * urine electrolytes prerenal (by FeUrea) * UA suggest infection * moderate proteinuria * CPK okay * urine eosinophils negative * continue IVFs for now * follow trend of repeat labs and UOP (2) Metabolic acidosis: Code(s): E87.20 - Acidosis, unspecified Status: Acute Assessment and Plan: * quite significant on admission * attempting to compensate with oral sodium bicarbonate * presumably due to #1 * could add bicarb to IVFs but that would likely cause hypokalemia * follow CO2 levels (3) Pancreatitis: Qualifiers: Chronicity: acute Pancreatitis type: unspecified pancreatitis type A cute pancreatitis complication: unspecified Qualified Code(s): K85.90 - Acute pancreatitis without necrosis or infection, unspecified Code(s): K85.90 - Acute pancreatitis without necrosis or infection, unspecified Status: Resolved Assessment and Plan: * suggested by admission lipase * limited assessment of pancreas by admission CT scan * lipase at 988 - follow trend * tolerating diet * wean off IVFs as tolerated (4) Pneumonia: Code(s): J18.9 - Pneumonia, unspecified organism Status: Acute Assessment and Plan: * noted by recent CXR * on antibiotics * follow culture data * no clinical symptoms * on room air (5) Hypoglycemia associated with type 2 diabetes mellitus: Code(s): E11.649 - Type 2 diabetes mellitus with hypoglycemia without coma Status: Acute Assessment and Plan: * quite profound on admission * suspect due to poor oral intake/GI symptoms compounded by use of oral hypoglycemic agents * requiring D10 IVFs to maintain blood sugars * wean IVFs as oral intake improves (6) UTI (urinary tract infection): Qualifiers: Urinary tract infection type: acute cystitis Hematuria presence: w ithout hematuria Qualified Code(s): N30.00 - Acute cystitis without hematuria Code(s): N39.0 - Urinary tract infection, site not specified Status: Ruled-out Assessment and Plan: * suspected based on admission UA * empiric antibiotics * follow urine culture results Long extensive discussion (greater than 25 minutes) with the patient regarding the severity of her renal dysfunction and associated metabolic acidosis and the concerns that if her kidney function fails to improve with conservative therapy, she may require renal replacement therapy/dialysis. The patient appeared to voice understanding is hopeful that continued conservative therapy will hopefully improve her kidney function thereby avoiding the need for any other invasive therapies. Will continue to follow. L History of Present Illness Reason for Consult Consult date: 07/26/24 Reason for consult: acute renal failure Chief Complaint Chief complaint: Acute kidney injury, Diarrhea, UTI History of Present Illness Narrative: The patient is a 33-year-old female with a past medical history as outlined below who presented to [facility] Emergency Room due to persistent hypoglycemia. The patient stated that she had been noting low blood sugars for around 4:00 p.m. on the day of presentation. Her glucometer gave her reading of 40 at 4:00 p.m., she ate piece of candy and a repeat blood sugar about 20 minutes later is was 39. This was further complicated by the fact that she had been having issues and problems with nausea, vomiting, diarrhea as well as abdominal pain that been going on for the last week. She was concerned that her hypoglycemia may be related to her dehydration given the persistence of her GI symptoms for the last several days. She reports that along with the nausea vomiting diarrhea, she has noted that her urine output has declined as well. She also thinks that she has had bilateral flank pain in association with these GI symptoms as well. She denies any fevers, chills, body aches or any other subjective symptoms. Given the hypoglycemia and the constellation of symptoms as mentioned, she decided come to the emergency room for further assessment. Workup and evaluation emergency room demonstrated the patient to be slightly tachycardic but afebrile and otherwise hemodynamically stable. Routine blood test demonstrated elevated white cell count of 16.3 no evidence of anemia, but a marked decline her kidney function with a creatinine of 6.94 mg/dL when labs done about a year ago show her renal function to be well within normal limits. Other laboratory findings include a lactic acid of 1.1, lipase of 591, and a urinalysis somewhat suggestive of a possible urinary tract infection. Viral testing for COVID, RSV, and influenza were negative and a subsequent CT scan of the abdomen pelvis demonstrated inflammatory changes around the bladder but no evidence of obstructive uropathy or any other acute pathology although imaging of the pancreas was limited without IV contrast. She was initiated on aggressive IV fluids and empiric antibiotics after appropriate cultures were obtained and she was subsequently admitted to the hospital for further evaluation and therapy. Since her admission, she is making urine but her renal function has not significantly improved. However, she does report that she feels somewhat better with the IV fluids and her blood sugars have stabilized although it is required dextrose IV fluids to maintain it since her admission. Renal consultation was requested due to her acute kidney injury/acute renal failure. As mentioned, she has no history or problems with regard to renal insufficiency at baseline and [facility] show her kidney function was well within normal limits by last testing. Surprisingly, her admission labs not show any critical electrolyte abnormalities but did show sigmoid a significant metabolic acidosis and a possible urinary tract infection. She does not have any acute issues or problems with volume overload or uremia at this time either. I did discuss with the patient that given her severe insult to her kidneys there is a possibility that she may require renal replacement therapy / dialysis if her kidney function does not improve with conservative therapy and she appeared to voice understanding. She is hopeful that with continued supportive therapy as already instituted, her renal function will improve. Currently, at the time my evaluation, she appears to be in no acute distress. Review of Systems 2 Review of Systems: As per HPI. [facility] Past Medical History Medical History (Updated 07/31/24 @ 12:41 by Rosemary Mullins APRN) Hypomagnesemia Anxiety and depression Migraines HTN (hypertension) HLD (hyperlipidemia) DM2 (diabetes mellitus, type 2) Obese Surgical History Surgical History (Updated 07/25/24 @ 22:44 by Lauryn Khan APRN) History of tonsillectomy Family History Family History (Updated 07/26/24 @ 00:01 by Isabella Pittman RN) Mother Lung cancer metastatic to bone Diabetes mellitus Father Bladder cancer Diabetes mellitus Hyperlipidemia Hypertension Father No problems noted. Social History Social History Smoking status: Never smoker Alcohol intake: never Substance use: never Do You Feel Safe in your Home?: Yes Lack of Transportation: No Lack of Food: Never True Current Housing: I Have Housing Concerned About Future Housing: No Difficulty Paying Gas/Electric Bills: No Difficulty Paying for Meds: No Currently Unemployed: No Education: Bachelor's Degree Difficulty w/ Childcare or Family Care: No Gender identity (if verbalized by the patient): Female Spiritual care concerns: No Meds Home Medications and Allergies Home Medications ?Medication ?Instructions ?Recorded ?Confirmed ?Type buspirone 7.5 mg tablet 7.5 mg PO BID 10/01/23 07/26/24 History dapagliflozin propanediol 5 mg 5 mg PO HS 10/01/23 07/26/24 History tablet (Farxiga) glipizide 5 mg tablet 5 mg PO BID 10/01/23 07/26/24 History metformin 1,000 mg tablet 1,000 mg PO BID 10/01/23 07/26/24 History rosuvastatin 5 mg tablet 5 mg PO HS 10/01/23 07/26/24 History sertraline 50 mg tablet 50 mg PO DAILY 10/01/23 07/26/24 History tirzepatide 7.5 mg/0.5 mL 15 mg subcut WEEKLY 10/01/23 07/26/24 History subcutaneous pen injector (Mounjaro) atomoxetine 40 mg capsule 40 mg PO DAILY 07/26/24 07/26/24 History cetirizine 10 mg capsule (Allergy 10 mg PO DAILY PRN allergy symptoms 07/26/24 07/26/24 History Relief (cetirizine)) hydroxyzine HCl 10 mg tablet 10 mg PO BID PRN anxiety 07/26/24 07/26/24 History metoprolol succinate 50 mg 50 mg PO HS 07/26/24 07/26/24 History tablet,extended release 24 hr amlodipine 5 mg tablet (Norvasc) 5 mg PO DAILY #30 tabs 07/31/24 Rx levofloxacin 500 mg tablet 500 mg PO Q48H #1 tablet 07/31/24 Rx magnesium oxide 400 mg (241.3 mg 400 mg PO DAILY #30 tabs 07/31/24 Rx magnesium) tablet Allergies Allergy/AdvReac Type Severity Reaction Status Date / Time amoxicillin Allergy Unknown Verified 10/03/23 07:24 clindamycin Allergy Rash Verified 10/03/23 07:24 Penicillins Allergy Unknown Verified 10/03/23 07:24 Vital Signs Vital Signs Temp Pulse Resp BP Pulse Ox O2 Del Method 07/26/24 08:00 100 Room Air 07/26/24 06:00 97.9 F 93 18 112/67 100 07/26/24 00:05 97 F L 112 H 18 136/90 100 07/25/24 20:57 100 15 106/72 100 Exam 2 Narrative: GENERAL APPEARANCE: well developed well nourished female in no acute distress HEENT: normocephalic, atraumatic, normal conjunctiva and sclera, nares patient NECK: no lymphadenopathy, thyromegaly, or JVD MOUTH: normal lips, teeth, and gums CARDIOVASCULAR: RRR, normal S1 and S2, no rub RESPIRATORY: clear to auscultation bilaterally ABDOMEN: soft, nontender, nondistended, positive bowel sounds present EXTREMITIES: no evidence of cyanosis, clubbing, or edema NEUROLOGICAL: alert and oriented x 3; CN II - XII intact bilaterally; no focal deficits noted Results Lab Results 07/31/24 05:33 07/31/24 05:33 Lab results: Most recent lab results Calcium 7.5 mg/dL (8.4-10.2) L 07/26/24 12:17 Phosphorus 4.7 mg/dL (2.5-4.5) H 07/26/24 05:22 Magnesium 1.9 mg/dL (1.6-2.3) 07/26/24 05:22 Urine Creatinine 160.2 mg/dL 07/25/24 20:30
[2024-07-26 12:00] LABS: Glucose Point of Care 156 mg/dl (65-105)
[2024-07-26 12:39] LABS: Anion Gap 16 mmol/L (4-12); Blood Urea Nitrogen 56 mg/dL (7-17); Calcium 7.5 mg/dL (8.4-10.2); Carbon Dioxide 13 mmol/L (22-30); Chloride 109 mmol/L (98-107); Estimated CRCL calculation 13 ml/min; Estimated Glomerular Filt Rate 7; Glucose 173 mg/dL (65-110); Potassium 4.1 mmol/L (3.4-5.0); Sodium 138 mmol/L (137-145)
--- NOTE | 2024-07-26 13:33 | PC.NURSE ---
Outpatient referral for DSMT and MNT started and faxed to [facility]. Unknown PCP.
[2024-07-26 14:00] VITALS: BP 143/81; PULSE 107; RESP 18; TEMP 36.6; O2SAT 100
[2024-07-26 14:11] LABS: Eosinophil Urine None Seen % (None Seen); Urine Eos QC 2nd Tech Confirmed
[2024-07-26] MEDS: SODIUM BICARBONATE TAB 650 MG TABLET 1300 MG PO ×2 (14:44→17:50)
[2024-07-26] MEDS: ENOXAPARIN 30 MG/0.3 ML SYRINGE SUB-Q (14:46)
[2024-07-26 15:15] LABS: Glucose Point of Care 183 mg/dl (65-105)
[2024-07-26 17:33] LABS: Glucose Point of Care 150 mg/dl (65-105)
[2024-07-26] MEDS: METOPROLOL SUCCINATE EXT REL 50 MG TABCR PO (21:22)
[2024-07-26] MEDS: ROSUVASTATIN 5 MG TABLET PO (21:22)
[2024-07-26 21:59] VITALS: BP 116/76; PULSE 109; RESP 20; TEMP 36.8; O2SAT 100
[2024-07-26 22:06] LABS: Anion Gap 14 mmol/L (4-12); Blood Urea Nitrogen 54 mg/dL (7-17); Calcium 7.3 mg/dL (8.4-10.2); Carbon Dioxide 12 mmol/L (22-30); Chloride 110 mmol/L (98-107); Estimated CRCL calculation 13 ml/min; Estimated Glomerular Filt Rate 7; Glucose 136 mg/dL (65-110); Sodium 136 mmol/L (137-145)
[2024-07-26 23:36] LABS: Glucose Point of Care 143 mg/dl (65-105)
[2024-07-27] MEDS: HYDROcodone/acetaminophen (*CRX) 5-325 MG TABLET 1 TAB PO ×2 (04:33→08:49)
[2024-07-27] MEDS: ONDANSETRON INJ 4 MG/2 ML VIAL IV PUSH ×2 (04:35→08:48)
[2024-07-27 05:50] LABS: Basophils Absolute Auto 0.1 K/mm3 (0.0-0.1); Basophils Percent Auto 0.5 % (0.2-1.2); Eosinophils Absolute Auto 0.8 K/mm3 (0-0.3); Eosinophils Percent Auto 6.5 % (0-4.4); Hematocrit 30.7 % (37.0-47.0); Hemoglobin 9.6 g/dL (12.0-15.0); Immature Granulocyte Absolute 0.04 K/mm3 (0.00-0.031); Immature Granulocyte Percent A 0.3 % (0-0.5); Lymphocytes Absolute Auto 2.25 K/mm3 (0.9-3.2); Lymphocytes Percent Auto 19.4 % (18.3-44.2); Mean Corpuscular HGB Conc 31.3 g/dl (32-36); Mean Corpuscular Volume 83.2 fl (80-100); Mean Platelet Volume 9.3 fl (7.4-10.4); Monocytes Absolute Auto 0.8 K/mm3 (0.1-0.6); Monocytes Percent Auto 7.1 % (2.6-8.5); Neutrophils Absolute Auto 7.7 K/mm3 (1.3-6.7); Neutrophils Percent Auto 66.2 % (45.5-73.1); Platelet Count Result 347 k/mm3 (150-375); Red Blood Count 3.69 M/mm3 (4.2-5.4); Red Cell Distribution Width 14.1 % (11.5-14.5); White Blood Count 11.6 K/mm3 (4.5-10.0)
[2024-07-27 06:00] VITALS: BP 113/81; PULSE 94; RESP 20; TEMP 36.1; O2SAT 98
[2024-07-27 06:02] LABS: INR 1.2; Prothrombin Time 15.1 Seconds (11.1-14.7)
[2024-07-27 06:10] LABS: Alanine Aminotransferase 12 U/L (6-35); Albumin Level 2.8 g/dL (3.5-5.1); Alkaline Phosphatase 47 U/L (38-126); Anion Gap 13 mmol/L (4-12); Aspartate Amino Transferase 22 U/L (14-36); Bilirubin,Total 0.3 mg/dL (0.2-1.3); Blood Urea Nitrogen 54 mg/dL (7-17); Carbon Dioxide 12 mmol/L (22-30); Chloride 111 mmol/L (98-107); Estimated CRCL calculation 13 ml/min; Estimated Glomerular Filt Rate 7; Glucose 156 mg/dL (65-110); Lipase 70 U/L (23-300); Magnesium 1.6 mg/dL (1.6-2.3); Phosphorus 5.3 mg/dL (2.5-4.5); Potassium 3.7 mmol/L (3.4-5.0); Sodium 136 mmol/L (137-145)
[2024-07-27] MEDS: DEXTROSE 10% IV CONT (06:24)
[2024-07-27] MEDS: SODIUM CHLORIDE IV CONT (06:24)
[2024-07-27 07:25] LABS: Glucose Point of Care 135 mg/dl (65-105)
[2024-07-27 08:07] VITALS: O2SAT 97
[2024-07-27] MEDS: SODIUM BICARBONATE TAB 650 MG TABLET 1300 MG PO ×3 (08:47→18:03)
[2024-07-27] MEDS: ENOXAPARIN 30 MG/0.3 ML SYRINGE SUB-Q (08:47)
[2024-07-27] MEDS: SERTRALINE HCL 50 MG TABLET PO (08:47)
[2024-07-27] MEDS: busPIRone HCL 2.5 MG, busPIRone HCL 5 MG 7.5 MG PO ×2 (08:47→20:58)
[2024-07-27] MEDS: PANTOPRAZOLE SODIUM IV 40 MG VIAL IV PUSH (08:48)
[2024-07-27] MEDS: AZITHROMYCIN 250 MG TABLET 500 MG PO (08:48)
--- NOTE | 2024-07-27 11:03 | P.PNNP_ITS ---
Progress Note: A&P Assessment and Plan (1) ALYSON (acute kidney injury): Code(s): N17.9 - Acute kidney failure, unspecified Status: Acute Assessment and Plan: * improvement noted by trend of labs * history would suggest volume depletion * several days of nausea + vomiting + diarrhea * likely worsened by AJAY-I + HCTZ use prior to admission * pancreatitis playing a role(?) * may have developed a component of ATN for prolonged renal hypoperfusion * evaluation to date noted: * normal renal ultrasound * CT A/P negative (and no evidence of pancreatitis) * urine electrolytes prerenal (by FeUrea) * UA suggest infection * moderate proteinuria * CPK okay * urine eosinophils negative * continue IVFs for now * follow trend of repeat labs and UOP (2) Metabolic acidosis: Code(s): E87.20 - Acidosis, unspecified Status: Acute Assessment and Plan: * quite significant on admission * attempting to compensate with oral sodium bicarbonate * presumably due to #1 * could add bicarb to IVFs but that would likely cause hypokalemia * follow CO2 levels (3) Pancreatitis: Qualifiers: Acute pancreatitis complication: unspecified Chronicity: acute P ancreatitis type: unspecified pancreatitis type Qualified Code(s): K85.90 - Acute pancreatitis without necrosis or infection, unspecified Code(s): K85.90 - Acute pancreatitis without necrosis or infection, unspecified Status: Resolved Assessment and Plan: * suggested by admission lipase * limited assessment of pancreas by admission CT scan * lipase peaked at 988 with now normalization * tolerating diet * wean off IVFs as tolerated (4) Pneumonia: Code(s): J18.9 - Pneumonia, unspecified organism Status: Acute Assessment and Plan: * noted by recent CXR * on antibiotics * follow culture data * no clinical symptoms * on room air (5) Hypoglycemia associated with type 2 diabetes mellitus: Code(s): E11.649 - Type 2 diabetes mellitus with hypoglycemia without coma Status: Acute Assessment and Plan: * quite profound on admission * suspect due to poor oral intake/GI symptoms compounded by use of oral hypoglycemic agents * was requiring D10 IVFs to maintain blood sugars * now weaned down to D5 IVFs * wean IVFs as oral intake improves (6) UTI (urinary tract infection): Qualifiers: Hematuria presence: without hematuria Urinary tract infection type: a cute cystitis Qualified Code(s): N30.00 - Acute cystitis without hematuria Code(s): N39.0 - Urinary tract infection, site not specified Status: Ruled-out Assessment and Plan: * suspected based on admission UA * empiric antibiotics * urine culture negative Will continue to follow. L Subjective Date/time seen: 07/27/24 11:03 Interval history: Follow-up for acute kidney injury/acute renal failure Renal function/creatinine remains relatively unchanged since admission; still making urine and no critical electrolyte abnormalities; remains hemodynamically stable; no apparent distress voiced at the time of my visit; no issues/events overnight or earlier this morning. Exam 2 Narrative: General: WD/WN female in NAD Heart: normal S1 and S2; no rub Lungs: clear to auscultation Abdomen: soft, nontender, nondistended, positive bowel sounds Extremities: no cyanosis or clubbing; no edema Skin: warm and dry Objective Data Vital Signs Vital Signs: Vital Signs Temp Pulse Resp BP Pulse Ox O2 Del Method 07/27/24 11:00 98.1 F 98 16 125/81 100 07/27/24 08:47 Room Air 07/27/24 08:07 97 Room Air 07/27/24 06:00 97.0 F L 94 20 113/81 98 07/26/24 21:59 98.2 F 109 H 20 116/76 100 07/26/24 19:15 Room Air Intake/Output Intake/Output: Intake & Output 07/24/24 07/25/24 07/26/24 07/27/24 23:59 23:59 23:59 23:59 Intake Total 3240 5198.5 3978.5 Output Total 500 4000 Balance 3240 4698.5 -21.5 Meds/Results Medications: Active Medications Generic Name Dose Route Start Last Admin Trade Name Freq PRN Reason Stop Dose Admin Acetaminophen 650 mg 07/25/24 22:39 07/27/24 13:22 Acetaminophen 325 Mg Tablet PO 650 mg Q4H PRN Administration Mild Pain (1-3) or Fever Hydrocodone Bitart/Acetaminophen 1 tab 07/26/24 00:18 07/27/24 08:49 Hydrocodone/Acetaminophen (*Crx) 5-325 Mg Tablet PO 1 tab Q4H PRN Administration Pain Rated 4-6 Azithromycin 500 mg 07/27/24 09:00 07/27/24 08:48 Azithromycin 250 Mg Tablet PO 500 mg DAILY VICENTA Administration Buspirone HCl 2.5 mg/ 7.5 mg 07/26/24 09:00 07/27/24 08:47 Buspirone HCl 5 mg PO 7.5 mg Q12HR VICENTA Administration Dextrose 12.5 gm 07/25/24 22:53 07/26/24 10:02 Dextrose 50% 25 Gm/50 Ml Syringe IV PUSH 12.5 gm PRN PRN Administration Hypoglycemia Protocol Diphenoxylate HCl/Atropine 1 tablet 07/25/24 23:36 07/26/24 02:26 Diphenoxylate/Atropine (*Crx) 2.5 Mg Tablet PO 1 tablet PRN PRN Administration Diarrhea Enoxaparin Sodium 30 mg 07/26/24 09:00 07/27/24 08:47 Enoxaparin 30 Mg/0.3 Ml Syringe SUB-Q 30 mg DAILY VICENTA Administration Glucagon 1 mg 07/25/24 22:53 Glucagon For Inj 1 Mg Vial IM PRN PRN Hypoglycemia Protocol Glucose 15 gm 07/25/24 22:53 07/26/24 09:17 Glucose Oral Gel 15 Gm Of Glucse In 37.5 Gm Tube PO 15 gm PRN PRN Administration Hypoglycemia Protocol Hydroxyzine HCl 10 mg 07/26/24 07:24 Hydroxyzine Hcl 10 Mg Tablet PO BID PRN anxiety Ceftriaxone Sodium 1 gm in 50 mls @ 100 mls/hr 07/26/24 22:00 07/26/24 21:52 Rocephin 1 Gm/Ns 50 Ml IVPB Infused Q24H VICENTA Infusion Dextrose/Sodium Chloride 1,000 mls @ 150 mls/hr 07/27/24 13:30 07/27/24 13:19 Dextrose 5% Sodium Chloride 0.9% IV CONT 150 mls/hr .Q6H40M VICENTA Administration Insulin Aspart 4 - 8 units 07/26/24 08:00 07/27/24 18:00 Insulin Aspart (*Bkc) 100 Units/Ml SUB-Q Not Given TIDWM [facility] Protocol Loratadine 10 mg 07/26/24 07:45 Loratadine 10 Mg Tablet PO DAILY PRN allergy symptoms Metoprolol Succinate 50 mg 07/26/24 21:00 07/26/24 21:22 Metoprolol Succinate Ext Rel 50 Mg Tabcr PO 50 mg HS VICENTA Administration Morphine Sulfate 2 mg 07/26/24 00:18 07/26/24 07:54 Morphine Sulfate (*Crx) 2 Mg/Ml Inj IV PUSH 2 mg Q4H PRN Administration Pain Rated 7-10 Ondansetron HCl 4 mg 07/25/24 22:39 07/27/24 08:48 Ondansetron Inj 4 Mg/2 Ml Vial IV PUSH 4 mg Q4H PRN Administration Nausea Pantoprazole Sodium 40 mg 07/26/24 09:00 07/27/24 08:48 Pantoprazole Sodium Iv 40 Mg Vial IV PUSH 40 mg QAM VICENTA Administration Rosuvastatin Calcium 5 mg 07/26/24 21:00 07/26/24 21:22 Rosuvastatin 5 Mg Tablet PO 5 mg HS VICENTA Administration Sertraline HCl 50 mg 07/26/24 09:00 07/27/24 08:47 Sertraline Hcl 50 Mg Tablet PO 50 mg DAILY VICENTA Administration Sodium Bicarbonate 1,300 mg 07/27/24 09:00 07/27/24 18:03 Sodium Bicarbonate Tab 650 Mg Tablet PO 1,300 mg TID VICENTA Administration Radiology Results: ITS Impressions Abdomen/Pelvis CT 07/25/24 21:52 IMPRESSION: Hepatomegaly. Inflammatory change surrounding the bladder. No obstructive uropathy. Renal Ultrasound 07/26/24 08:38 IMPRESSION: 1. Normal kidneys without hydronephrosis. Chest X-Ray 07/27/24 06:53 Impression: Suspected left lower lobe pneumonia. Labs Labs: Laboratory Tests 07/27/24 05:14 07/27/24 05:14 Calcium 7.0 L Phosphorus 5.3 H Magnesium 1.6 Total Bilirubin 0.3 AST 22 ALT 12 Alkaline Phosphatase 47 Total Protein 6.0 L Albumin 2.8 L Lipase 70 Microbiology 07/26/24 01:02 Stool Escherichia coli Shiga Toxins - Final 07/26/24 01:02 Stool Campylobacter Antigen Assay - Final 07/25/24 20:30 Unspecified Urine Culture - Final 07/25/24 23:05 Blood Blood Culture - Preliminary 07/25/24 23:05 Blood Blood Culture - Preliminary
[2024-07-27 11:45] LABS: Glucose Point of Care 177 mg/dl (65-105)
[2024-07-27] MEDS: DEXTROSE 5%/0.9% SOD CHL 1,000 ML 150 ML IV CONT ×2 (13:19→20:58)
[2024-07-27] MEDS: ACETAMINOPHEN 325 MG TABLET 650 MG PO ×2 (13:22→18:41)
[2024-07-27 14:00] VITALS: BP 125/81; PULSE 98; RESP 16; TEMP 36.7; O2SAT 100
--- NOTE | 2024-07-27 14:45 | P.PNIM_ITS ---
Progress Note: A&P Assessment and Plan (1) Acute renal failure: Qualifiers: Acute renal failure type: unspecified Qualified Code(s): N17.9 - Acute kidney failure, unspecified Code(s): N17.9 - Acute kidney failure, unspecified Status: Acute Assessment and Plan: patient presented to the emergency department with days nausea vomiting diarrhea most severe dehydration unknown infectious cause what does appear to possible pancreatitis * nephrology consulted * creatinine 6.94 and GFR 7, previously 0.6 and GFR >60 on 10/03/2023 * aggressive IV fluids * renal ultrasound * prerenal? * add CK, urine sodium, protein/creatinine, urea * UA showed 2+ protein * monitor I&Os, may need Parikh placed for accurate I&Os if unable to measure via hat due to diarrhea * IV fluids: 3L bolus -> D5/NS 150 mL/hr * patient will need to discontinue her lisinopril and hydrochlorothiazide inpatient and on discharge will also discontinue her glipizide which is likely causing her hypoglycemia due to ALYSON and dehydration * Placed parikh catheter for strict I&O's poor reported urinary output 07/27/24: * Urinary output increased today * Cr slow downtrend * continue with aggressive IV fluids pending renal recovery (2) Metabolic acidosis: Code(s): E87.20 - Acidosis, unspecified Status: Acute Assessment and Plan: * Carbon dioxide 12L * bicarb tablets added TID * likely secondary to dehydration and ALYSON (3) Pancreatitis: Qualifiers: Chronicity: acute Pancreatitis type: unspecified pancreatitis type Acute pancreatitis complication: unspecified Qualified Code(s): K85.90 - Acute pancreatitis without necrosis or infection, unspecified Code(s): K85.90 - Acute pancreatitis without necrosis or infection, unspecified Status: Resolved Assessment and Plan: * lipase 591, trend * limited to of pancreas on CT due to lack of contrast * IV fluids * analgesics p.r.n. * PPI * antiemetics * lipase trending up continue with daily lipase * clear liquid diet will advance as tolerated * Will need to discontinue her GLP1 medication * Lipid panel pending to evaluate hypertriglyceridemia RESOLVED (4) Dehydration: Code(s): E86.0 - Dehydration Status: Acute Assessment and Plan: * N/V/D for multiple days likely viral infection * likely secondary to pancreatitis possibly from GLP1 medication may need to discontinue * Lipid panel ordered * Aggressive IV fluids (5) Hypoglycemia associated with type 2 diabetes mellitus: Code(s): E11.649 - Type 2 diabetes mellitus with hypoglycemia without coma Status: Acute Assessment and Plan: patient with severe hypoglycemia POA slightly secondary to patient's continued dehydration, nausea, vomiting diarrhea and acute kidney injury while she was taking was taking glipizide also on a GLP 1 * initially started on D5 half-normal saline * will increase to D10 still having episodes of hypoglycemia * patient will recommend to discontinue her use of glipizide and GLP 1 at discharge * Accu-Cheks Q 6 hours * patient with good oral intake but poor urinary output * hypoglycemic protocol in place 07/27/ * Stabilized * switch back to dextrose 5 (6) Pneumonia: Code(s): J18.9 - Pneumonia, unspecified organism Status: Acute Assessment and Plan: * CXR: Suspected left lower lobe pneumonia. * Ceftriaxone and azithromycin * Oxygen PRN on RA * antipyretics (7) Obese: Code(s): E66.9 - Obesity, unspecified Status: Acute Assessment and Plan: * encourage increased on physical activity and lifestyle modifications * Stress monitoring * encourage outpatient weight loss clinic * Diet exercise counseling done. (8) UTI (urinary tract infection): Qualifiers: Urinary tract infection type: acute cystitis Hematuria presence: without hematuria Qualified Code(s): N30.00 - Acute cystitis without hematuria Code(s): N39.0 - Urinary tract infection, site not specified Status: Ruled-out Assessment and Plan: * UA: Turbid, 2+ protein, 1+ glucose, trace ketones, 2+ leuks, 11-20 RBC, 21-50 WBC, few epithelial cells, 4+ bacteria. * UC pending * no previous micro available for review * started on Ceftriaxone on 07/25 RULED OUT Plan Code status: Full code per patient DVT prophylaxis: Lovenox Stress ulcer prophylaxis: Protonix 40 daily PT/OT notes: Ambulatory Disposition: patient continues admission to the medical unit for further evaluation and treatment of hypoglycemia, acute kidney injury, and pancreatitis we will continue with aggressive IV hydration consult to Nephrology for further recommendations on acute kidney injury and close monitoring of hypoglycemia with D5/NS. patient is ambulatory on own and plan will be to return home when medically stable Time Spent With Patient Time with patient: 15 - 25 minutes Subjective Date/time seen: 07/27/24 14:45 Interval history: Patient is a 33-year-old female who was admitted to the medical unit for further evaluation hypoglycemia and acute kidney injury secondary to nausea vomiting diarrhea. 07/27/24: Assumed care Patient tolerating oral intake today advanced diet. CXR did show infiltrate Suspicious for pneumonia patient already on Rocephin added azithromycin. patient with great urine output overnight hopefully having some renal recovery. patient denies any chest pain, shortness a breath, nausea vomiting reports overall symptoms have improved still with mild sharp CVA pain bilateral. Review of Systems Review of Systems: All systems reviewed & are unremarkable except as noted in HPI and below Exam Narrative: * GENERAL: Pleasant Alert and oriented x 3. Obese female in No acute distress. * EYES: EOMI. No scleral icterus. PERRLA. * HEENT: Moist mucous membranes. * LUNGS: Clear to auscultation bilaterally. No accessory muscle use. * CARDIOVASCULAR: Regular rate and rhythm. No murmur. No JVD. S1-S2 * ABDOMEN: Soft, tenderness and non-distended. No palpable masses. CVA mild bilateral * EXTREMITIES: No edema. Non-tender * SKIN: No rashes or lesions. Skin warm, dry. * NEUROLOGIC: No focal neurological deficits. CN II-XII grossly intact * PSYCHIATRIC: Appropriate mood and affect. Good judgement and insight. Urinary Catheter: Urinary Catheter: patent and draining and urine clear Objective Data Vital Signs Vital Signs: Vital Signs - 24 hr 07/26/24 19:15 07/26/24 21:59 07/27/24 06:00 Temperature 98.2 F 97.0 F L Pulse Rate 109 H 94 Respiratory Rate 20 20 Blood Pressure 116/76 113/81 Pulse Oximetry 100 98 Oxygen Delivery Room Air 07/27/24 08:07 07/27/24 08:47 07/27/24 14:00 Temperature 98.1 F Pulse Rate 98 Respiratory Rate 16 Blood Pressure 125/81 Pulse Oximetry 97 100 Oxygen Delivery Room Air Room Air Intake/Output Intake/Output: Intake & Output 07/24/24 07/25/24 07/26/24 07/27/24 23:59 23:59 23:59 23:59 Intake Total 3240 5198.5 2000 Output Total 500 3450 Balance 3240 4698.5 -1450 Meds/Results Medications: Active Medications Generic Name Dose Route Start Last Admin Trade Name Freq PRN Reason Stop Dose Admin Acetaminophen 650 mg 07/25/24 22:39 07/27/24 13:22 Acetaminophen 325 Mg Tablet PO 650 mg Q4H PRN Administration Mild Pain (1-3) or Fever Hydrocodone Bitart/Acetaminophen 1 tab 07/26/24 00:18 07/27/24 08:49 Hydrocodone/Acetaminophen (*Crx) 5-325 Mg Tablet PO 1 tab Q4H PRN Administration Pain Rated 4-6 Azithromycin 500 mg 07/27/24 09:00 07/27/24 08:48 Azithromycin 250 Mg Tablet PO 500 mg DAILY VICENTA Administration Buspirone HCl 2.5 mg/ 7.5 mg 07/26/24 09:00 07/27/24 08:47 Buspirone HCl 5 mg PO 7.5 mg Q12HR VICENTA Administration Dextrose 12.5 gm 07/25/24 22:53 07/26/24 10:02 Dextrose 50% 25 Gm/50 Ml Syringe IV PUSH 12.5 gm PRN PRN Administration Hypoglycemia Protocol Diphenoxylate HCl/Atropine 1 tablet 07/25/24 23:36 07/26/24 02:26 Diphenoxylate/Atropine (*Crx) 2.5 Mg Tablet PO 1 tablet PRN PRN Administration Diarrhea Enoxaparin Sodium 30 mg 07/26/24 09:00 07/27/24 08:47 Enoxaparin 30 Mg/0.3 Ml Syringe SUB-Q 30 mg DAILY VICENTA Administration Glucagon 1 mg 07/25/24 22:53 Glucagon For Inj 1 Mg Vial IM PRN PRN Hypoglycemia Protocol Glucose 15 gm 07/25/24 22:53 07/26/24 09:17 Glucose Oral Gel 15 Gm Of Glucse In 37.5 Gm Tube PO 15 gm PRN PRN Administration Hypoglycemia Protocol Hydroxyzine HCl 10 mg 07/26/24 07:24 Hydroxyzine Hcl 10 Mg Tablet PO BID PRN anxiety Ceftriaxone Sodium 1 gm in 50 mls @ 100 mls/hr 07/26/24 22:00 07/26/24 21:52 Rocephin 1 Gm/Ns 50 Ml IVPB Infused Q24H VICENTA Infusion Dextrose/Sodium Chloride 1,000 mls @ 150 mls/hr 07/27/24 13:30 07/27/24 13:19 Dextrose 5% Sodium Chloride 0.9% IV CONT 150 mls/hr .Q6H40M VICENTA Administration Insulin Aspart 4 - 8 units 07/26/24 08:00 07/27/24 11:50 Insulin Aspart (*Bkc) 100 Units/Ml SUB-Q Not Given TIDWM [facility] Protocol Loratadine 10 mg 07/26/24 07:45 Loratadine 10 Mg Tablet PO DAILY PRN allergy symptoms Metoprolol Succinate 50 mg 07/26/24 21:00 07/26/24 21:22 Metoprolol Succinate Ext Rel 50 Mg Tabcr PO 50 mg HS VICENTA Administration Morphine Sulfate 2 mg 07/26/24 00:18 07/26/24 07:54 Morphine Sulfate (*Crx) 2 Mg/Ml Inj IV PUSH 2 mg Q4H PRN Administration Pain Rated 7-10 Ondansetron HCl 4 mg 07/25/24 22:39 07/27/24 08:48 Ondansetron Inj 4 Mg/2 Ml Vial IV PUSH 4 mg Q4H PRN Administration Nausea Pantoprazole Sodium 40 mg 07/26/24 09:00 07/27/24 08:48 Pantoprazole Sodium Iv 40 Mg Vial IV PUSH 40 mg QAM VICENTA Administration Rosuvastatin Calcium 5 mg 07/26/24 21:00 07/26/24 21:22 Rosuvastatin 5 Mg Tablet PO 5 mg HS VICENTA Administration Sertraline HCl 50 mg 07/26/24 09:00 07/27/24 08:47 Sertraline Hcl 50 Mg Tablet PO 50 mg DAILY VICENTA Administration Sodium Bicarbonate 1,300 mg 07/27/24 09:00 07/27/24 13:21 Sodium Bicarbonate Tab 650 Mg Tablet PO 1,300 mg TID VICENTA Administration Radiology Results: ITS Impressions Abdomen/Pelvis CT 07/25/24 21:52 IMPRESSION: Hepatomegaly. Inflammatory change surrounding the bladder. No obstructive uropathy. Renal Ultrasound 07/26/24 08:38 IMPRESSION: 1. Normal kidneys without hydronephrosis. Chest X-Ray 07/27/24 06:53 Impression: Suspected left lower lobe pneumonia. Labs Labs: Laboratory Results - last 24 hr 07/26/24 07/26/24 07/26/24 15:06 17:28 21:53 WBC RBC Hgb Hct MCV MCH MCHC RDW Plt Count MPV Immature Gran % (Auto) Neut % (Auto) Lymph % (Auto) [place] % (Auto) Eos % (Auto) Baso % (Auto) Lymph # (Auto) [place] # (Auto) Eos # (Auto) Baso # (Auto) Abs Immat Gran (auto) Absolute Neuts (auto) Absolute Nucleated RBC Nucleated RBC % PT INR Sodium 136 L Potassium 4.0 Chloride 110 H Carbon Dioxide 12 L Anion Gap 14 H BUN 54 H Creatinine 6.94 H Estim Creat Clear Calc 13 Estimated GFR 7 L Glucose 136 H POC Capillary Glucose 183 H 150 H Calcium 7.3 L Phosphorus Magnesium Total Bilirubin AST ALT Alkaline Phosphatase Total Protein Albumin Lipase 07/26/24 07/27/24 07/27/24 23:31 05:14 06:15 WBC 11.6 H RBC 3.69 L Hgb 9.6 L Hct 30.7 L MCV 83.2 MCH 26.0 MCHC 31.3 L RDW 14.1 Plt Count 347 MPV 9.3 Immature Gran % (Auto) 0.3 Neut % (Auto) 66.2 Lymph % (Auto) 19.4 [place] % (Auto) 7.1 Eos % (Auto) 6.5 H Baso % (Auto) 0.5 Lymph # (Auto) 2.25 [place] # (Auto) 0.8 H Eos # (Auto) 0.8 H Baso # (Auto) 0.1 Abs Immat Gran (auto) 0.04 H Absolute Neuts (auto) 7.7 H Absolute Nucleated RBC 0.000 Nucleated RBC % 0.0 PT 15.1 H INR 1.2 Sodium 136 L Potassium 3.7 Chloride 111 H Carbon Dioxide 12 L Anion Gap 13 H BUN 54 H Creatinine 6.93 H Estim Creat Clear Calc 13 Estimated GFR 7 L Glucose 156 H POC Capillary Glucose 143 H 135 H Calcium 7.0 L Phosphorus 5.3 H Magnesium 1.6 Total Bilirubin 0.3 AST 22 ALT 12 Alkaline Phosphatase 47 Total Protein 6.0 L Albumin 2.8 L Lipase 70 07/27/24 11:32 WBC RBC Hgb Hct MCV MCH MCHC RDW Plt Count MPV Immature Gran % (Auto) Neut % (Auto) Lymph % (Auto) [place] % (Auto) Eos % (Auto) Baso % (Auto) Lymph # (Auto) [place] # (Auto) Eos # (Auto) Baso # (Auto) Abs Immat Gran (auto) Absolute Neuts (auto) Absolute Nucleated RBC Nucleated RBC % PT INR Sodium Potassium Chloride Carbon Dioxide Anion Gap BUN Creatinine Estim Creat Clear Calc Estimated GFR Glucose POC Capillary Glucose 177 H Calcium Phosphorus Magnesium Total Bilirubin AST ALT Alkaline Phosphatase Total Protein Albumin Lipase Quality VTE Prophylaxis VTE prophylaxis: mechanical ordered and pharmacologic ordered -Patient's previous records reviewed on admission -ER notes reviewed in detail on admission -discussed all findings and current treatment plan with patient/Family/POA -Consultations reviewed for recommendations -Patient's disposition for safe discharge discussed with case coordinator Dictation performed by [employer] direct speech recognition software, therefore superintendent [employer] variants and typographical errors may occur. Hospitalist MIPS Advance Care Plan I have confirmed that the patient's Advanced Care Plan is present, code status is documented, or surrogate decision maker is listed in patient medical record.: Yes Medication Reconciliation I have utilized all available resources to obtain, update and review the patients current medications (includes all prescriptions, OTC, herbals, cannabis, and nutritional supplements).: Yes The patient is not eligible for med reconciliation; the patient is in a emergent medical situation where delaying treatment would jeopardize the patients health.: No
[2024-07-27 17:16] LABS: Glucose Point of Care 132 mg/dl (65-105)
[2024-07-27] MEDS: METOPROLOL SUCCINATE EXT REL 50 MG TABCR PO (20:58)
[2024-07-27] MEDS: ROSUVASTATIN 5 MG TABLET PO (20:58)
[2024-07-27 21:13] VITALS: BP 145/88; PULSE 98; RESP 20; TEMP 36.1; O2SAT 100
[2024-07-28] MEDS: DEXTROSE 5%/0.9% SOD CHL 1,000 ML 150 ML IV CONT ×2 (04:11→11:01)
[2024-07-28] MEDS: ACETAMINOPHEN 325 MG TABLET 650 MG PO ×2 (04:12→09:02)
[2024-07-28 06:00] VITALS: BP 128/84; PULSE 83; RESP 20; TEMP 36.1; O2SAT 98
[2024-07-28 06:33] LABS: Glucose Point of Care 137 mg/dl (65-105)
[2024-07-28 06:33] LABS: Glucose Point of Care 132 mg/dl (65-105)
[2024-07-28 06:38] LABS: Basophils Absolute Auto 0.1 K/mm3 (0.0-0.1); Basophils Percent Auto 0.9 % (0.2-1.2); Eosinophils Absolute Auto 0.8 K/mm3 (0-0.3); Eosinophils Percent Auto 8.6 % (0-4.4); Hematocrit 30.7 % (37.0-47.0); Hemoglobin 9.7 g/dL (12.0-15.0); Immature Granulocyte Absolute 0.03 K/mm3 (0.00-0.031); Immature Granulocyte Percent A 0.3 % (0-0.5); Lymphocytes Absolute Auto 1.43 K/mm3 (0.9-3.2); Mean Corpuscular HGB Conc 31.6 g/dl (32-36); Mean Corpuscular Hemoglobin 26.2 pg (26-34); Mean Platelet Volume 9.3 fl (7.4-10.4); Monocytes Absolute Auto 0.6 K/mm3 (0.1-0.6); Monocytes Percent Auto 7.1 % (2.6-8.5); Neutrophils Percent Auto 67.1 % (45.5-73.1); Platelet Count Result 348 k/mm3 (150-375); Red Cell Distribution Width 13.8 % (11.5-14.5); White Blood Count 8.9 K/mm3 (4.5-10.0)
[2024-07-28 07:03] LABS: Alanine Aminotransferase 13 U/L (6-35); Albumin Level 2.9 g/dL (3.5-5.1); Alkaline Phosphatase 56 U/L (38-126); Anion Gap 14 mmol/L (4-12); Aspartate Amino Transferase 21 U/L (14-36); Bilirubin,Total 0.3 mg/dL (0.2-1.3); Blood Urea Nitrogen 46 mg/dL (7-17); Calcium 7.7 mg/dL (8.4-10.2); Carbon Dioxide 16 mmol/L (22-30); Chloride 111 mmol/L (98-107); Estimated CRCL calculation 16 ml/min; Estimated Glomerular Filt Rate 8; Glucose 119 mg/dL (65-110); Lipase 65 U/L (23-300); Magnesium 1.5 mg/dL (1.6-2.3); Phosphorus 5.5 mg/dL (2.5-4.5); Potassium 3.7 mmol/L (3.4-5.0); Sodium 141 mmol/L (137-145)
[2024-07-28] MEDS: PANTOPRAZOLE SODIUM IV 40 MG VIAL IV PUSH (08:53)
[2024-07-28] MEDS: SERTRALINE HCL 50 MG TABLET PO (08:53)
[2024-07-28] MEDS: AZITHROMYCIN 250 MG TABLET 500 MG PO (08:53)
[2024-07-28] MEDS: SODIUM BICARBONATE TAB 650 MG TABLET 1300 MG PO ×3 (08:53→17:49)
[2024-07-28] MEDS: busPIRone HCL 2.5 MG, busPIRone HCL 5 MG 7.5 MG PO ×2 (08:53→20:27)
[2024-07-28] MEDS: ENOXAPARIN 30 MG/0.3 ML SYRINGE SUB-Q (08:53)
[2024-07-28 11:18] LABS: Glucose Point of Care 136 mg/dl (65-105)
--- NOTE | 2024-07-28 12:31 | P.PNNP_ITS ---
Progress Note: A&P Assessment and Plan (1) ALYSON (acute kidney injury): Code(s): N17.9 - Acute kidney failure, unspecified Status: Acute Assessment and Plan: * improvement noted by trend of labs * history would suggest volume depletion * several days of nausea + vomiting + diarrhea * likely worsened by AJAY-I + HCTZ use prior to admission * pancreatitis playing a role(?) * may have developed a component of ATN for prolonged renal hypoperfusion * evaluation to date noted: * normal renal ultrasound * CT A/P negative (and no evidence of pancreatitis) * urine electrolytes prerenal (by FeUrea) * UA suggest infection (but urine culture negative) * moderate proteinuria * CPK okay * urine eosinophils negative * increased urine output noted in the last 24 hours (post ATN-diuresis?) * wean IVFs since eating and drinking well * follow trend of repeat labs and UOP (2) Metabolic acidosis: Code(s): E87.20 - Acidosis, unspecified Status: Acute Assessment and Plan: * quite significant on admission * attempting to compensate with oral sodium bicarbonate * presumably due to #1 * could add bicarb to IVFs but that would likely cause hypokalemia * follow CO2 levels (3) Pancreatitis: Qualifiers: Acute pancreatitis complication: unspecified Chronicity: acute P ancreatitis type: unspecified pancreatitis type Qualified Code(s): K85.90 - Acute pancreatitis without necrosis or infection, unspecified Code(s): K85.90 - Acute pancreatitis without necrosis or infection, unspecified Status: Resolved Assessment and Plan: * suggested by admission lipase * limited assessment of pancreas by admission CT scan * lipase peaked at 988 with now normalization * tolerating diet * wean off IVFs as tolerated (4) Pneumonia: Code(s): J18.9 - Pneumonia, unspecified organism Status: Acute Assessment and Plan: * noted by recent CXR * on antibiotics * follow culture data * no clinical symptoms * on room air (5) Hypoglycemia associated with type 2 diabetes mellitus: Code(s): E11.649 - Type 2 diabetes mellitus with hypoglycemia without coma Status: Acute Assessment and Plan: * quite profound on admission * suspect due to poor oral intake/GI symptoms compounded by use of oral hypoglycemic agents * was requiring D10 IVFs to maintain blood sugars * now weaned down to D5 IVFs * wean IVFs as oral intake improves (6) UTI (urinary tract infection): Qualifiers: Hematuria presence: without hematuria Urinary tract infection type: a cute cystitis Qualified Code(s): N30.00 - Acute cystitis without hematuria Code(s): N39.0 - Urinary tract infection, site not specified Status: Ruled-out Assessment and Plan: * suspected based on admission UA * empiric antibiotics * urine culture negative Will continue to follow. L Subjective Date/time seen: 07/28/24 12:31 Interval history: Follow-up for acute kidney injury/acute renal failure. Renal function/creatinine starting to improve in associated with good urine output with IVFs; overall, states she is feeling better as well but still has on/off bilateral CVA discomfort; eating and drinking reasonably well also; at bedside and we discussed the situation. Exam 2 Narrative: General: WD/WN female in NAD Heart: normal S1 and S2; no rub Lungs: clear to auscultation Abdomen: soft, nontender, nondistended, positive bowel sounds Extremities: no cyanosis or clubbing; no edema Skin: warm and intact Objective Data Vital Signs Vital Signs: Vital Signs Temp Pulse Resp BP Pulse Ox O2 Del Method 07/28/24 12:00 98.1 F 84 18 134/83 98 07/28/24 08:16 Room Air 07/28/24 06:00 97.0 F L 83 20 128/84 98 07/27/24 21:13 97.0 F L 98 20 145/88 H 100 07/27/24 20:00 Room Air Intake/Output Intake/Output: Intake & Output 07/25/24 07/26/24 07/27/24 07/28/24 23:59 23:59 23:59 23:59 Intake Total 3240 5198.5 5028.5 3630 Output Total 500 4650 6400 Balance 3240 4698.5 378.5 -2770 Meds/Results Medications: Active Medications Generic Name Dose Route Start Last Admin Trade Name Freq PRN Reason Stop Dose Admin Acetaminophen 650 mg 07/25/24 22:39 07/28/24 09:02 Acetaminophen 325 Mg Tablet PO 650 mg Q4H PRN Administration Mild Pain (1-3) or Fever Hydrocodone Bitart/Acetaminophen 1 tab 07/26/24 00:18 07/28/24 12:46 Hydrocodone/Acetaminophen (*Crx) 5-325 Mg Tablet PO 1 tab Q4H PRN Administration Pain Rated 4-6 Buspirone HCl 2.5 mg/ 7.5 mg 07/26/24 09:00 07/28/24 08:53 Buspirone HCl 5 mg PO 7.5 mg Q12HR VICENTA Administration Dextrose 12.5 gm 07/25/24 22:53 07/26/24 10:02 Dextrose 50% 25 Gm/50 Ml Syringe IV PUSH 12.5 gm PRN PRN Administration Hypoglycemia Protocol Diphenoxylate HCl/Atropine 1 tablet 07/25/24 23:36 07/26/24 02:26 Diphenoxylate/Atropine (*Crx) 2.5 Mg Tablet PO 1 tablet PRN PRN Administration Diarrhea Enoxaparin Sodium 30 mg 07/26/24 09:00 07/28/24 08:53 Enoxaparin 30 Mg/0.3 Ml Syringe SUB-Q 30 mg DAILY VICENTA Administration Glucagon 1 mg 07/25/24 22:53 Glucagon For Inj 1 Mg Vial IM PRN PRN Hypoglycemia Protocol Glucose 15 gm 07/25/24 22:53 07/26/24 09:17 Glucose Oral Gel 15 Gm Of Glucse In 37.5 Gm Tube PO 15 gm PRN PRN Administration Hypoglycemia Protocol Hydroxyzine HCl 10 mg 07/26/24 07:24 Hydroxyzine Hcl 10 Mg Tablet PO BID PRN anxiety Dextrose/Sodium Chloride 1,000 mls @ 150 mls/hr 07/27/24 13:30 07/28/24 11:01 Dextrose 5% Sodium Chloride 0.9% IV CONT 150 mls/hr .Q6H40M VICENTA Administration Insulin Aspart 4 - 8 units 07/26/24 08:00 07/28/24 11:46 Insulin Aspart (*Bkc) 100 Units/Ml SUB-Q Not Given TIDWM [facility] Protocol Levofloxacin 500 mg 07/28/24 16:00 Levofloxacin 500 Mg Tablet PO Q48H [facility] Loratadine 10 mg 07/26/24 07:45 Loratadine 10 Mg Tablet PO DAILY PRN allergy symptoms Metoprolol Succinate 50 mg 07/26/24 21:00 07/27/24 20:58 Metoprolol Succinate Ext Rel 50 Mg Tabcr PO 50 mg HS VICENTA Administration Morphine Sulfate 2 mg 07/26/24 00:18 07/26/24 07:54 Morphine Sulfate (*Crx) 2 Mg/Ml Inj IV PUSH 2 mg Q4H PRN Administration Pain Rated 7-10 Ondansetron HCl 4 mg 07/25/24 22:39 07/27/24 08:48 Ondansetron Inj 4 Mg/2 Ml Vial IV PUSH 4 mg Q4H PRN Administration Nausea Pantoprazole Sodium 40 mg 07/26/24 09:00 07/28/24 08:53 Pantoprazole Sodium Iv 40 Mg Vial IV PUSH 40 mg QAM VICENTA Administration Rosuvastatin Calcium 5 mg 07/26/24 21:00 07/27/24 20:58 Rosuvastatin 5 Mg Tablet PO 5 mg HS VICENTA Administration Sertraline HCl 50 mg 07/26/24 09:00 07/28/24 08:53 Sertraline Hcl 50 Mg Tablet PO 50 mg DAILY VICENTA Administration Sodium Bicarbonate 1,300 mg 07/27/24 09:00 07/28/24 12:46 Sodium Bicarbonate Tab 650 Mg Tablet PO 1,300 mg TID VICENTA Administration Radiology Results: ITS Impressions Abdomen/Pelvis CT 07/25/24 21:52 IMPRESSION: Hepatomegaly. Inflammatory change surrounding the bladder. No obstructive uropathy. Renal Ultrasound 07/26/24 08:38 IMPRESSION: 1. Normal kidneys without hydronephrosis. Chest X-Ray 07/27/24 06:53 Impression: Suspected left lower lobe pneumonia. Labs Labs: Laboratory Tests 07/28/24 05:35 07/28/24 05:35 Calcium 7.7 L Phosphorus 5.5 H Magnesium 1.5 L Total Bilirubin 0.3 AST 21 ALT 13 Alkaline Phosphatase 56 Total Protein 6.0 L Albumin 2.9 L Lipase 65 Microbiology 07/26/24 01:02 Stool Escherichia coli Shiga Toxins - Final 07/26/24 01:02 Stool Salmonella/Shigella Culture - Final 07/26/24 01:02 Stool Campylobacter Antigen Assay - Final
[2024-07-28] MEDS: HYDROcodone/acetaminophen (*CRX) 5-325 MG TABLET 1 TAB PO ×2 (12:46→19:15)
[2024-07-28 14:00] VITALS: BP 134/83; PULSE 84; RESP 18; TEMP 36.7; O2SAT 98
[2024-07-28] MEDS: levoFLOXacin 500 MG TABLET PO (17:49)
--- NOTE | 2024-07-28 18:30 | P.PNIM_ITS ---
Progress Note: A&P Assessment and Plan (1) Acute renal failure: Qualifiers: Acute renal failure type: unspecified Qualified Code(s): N17.9 - Acute kidney failure, unspecified Code(s): N17.9 - Acute kidney failure, unspecified Status: Acute Assessment and Plan: patient presented to the emergency department with days nausea vomiting diarrhea most severe dehydration unknown infectious cause what does appear to possible pancreatitis * nephrology consulted * creatinine 6.94 and GFR 7, previously 0.6 and GFR >60 on 10/03/2023 * aggressive IV fluids * renal ultrasound * prerenal? * add CK, urine sodium, protein/creatinine, urea * UA showed 2+ protein * monitor I&Os, may need Parikh placed for accurate I&Os if unable to measure via hat due to diarrhea * IV fluids: 3L bolus -> D5/NS 150 mL/hr * patient will need to discontinue her lisinopril and hydrochlorothiazide inpatient and on discharge will also discontinue her glipizide which is likely causing her hypoglycemia due to ALYSON and dehydration * Placed parikh catheter for strict I&O's poor reported urinary output 07/27/24: * Urinary output increased today * Cr slow downtrend * continue with aggressive IV fluids pending renal recovery 07/28 * Creatinine down to 5.97 * will switch IV fluids to normal saline at 100 mL/hour * continue to trend * monitor strict I&O * renal ultrasound showed normal kidneys without hydronephrosis * likely due to dehydration (2) Metabolic acidosis: Code(s): E87.20 - Acidosis, unspecified Status: Acute Assessment and Plan: * Carbon dioxide 12L * bicarb tablets added TID * likely secondary to dehydration and ALYSON 07/28 * carbon dioxide 16 * continue bicarb tablets t.i.d. (3) Pancreatitis: Qualifiers: Chronicity: acute Pancreatitis type: unspecified pancreatitis type Acute pancreatitis complication: unspecified Qualified Code(s): K85.90 - Acute pancreatitis without necrosis or infection, unspecified Code(s): K85.90 - Acute pancreatitis without necrosis or infection, unspecified Status: Resolved Assessment and Plan: * lipase 591, trend * limited to of pancreas on CT due to lack of contrast * IV fluids * analgesics p.r.n. * PPI * antiemetics * lipase trending up continue with daily lipase * clear liquid diet will advance as tolerated * Will need to discontinue her GLP1 medication * Lipid panel pending to evaluate hypertriglyceridemia RESOLVED (4) Dehydration: Code(s): E86.0 - Dehydration Status: Acute Assessment and Plan: * N/V/D for multiple days likely viral infection * likely secondary to pancreatitis possibly from GLP1 medication may need to discontinue * Lipid panel ordered * Aggressive IV fluids 2/5 * continue IV fluids (5) Hypoglycemia associated with type 2 diabetes mellitus: Code(s): E11.649 - Type 2 diabetes mellitus with hypoglycemia without coma Status: Acute Assessment and Plan: patient with severe hypoglycemia POA slightly secondary to patient's continued dehydration, nausea, vomiting diarrhea and acute kidney injury while she was taking was taking glipizide also on a GLP 1 * initially started on D5 half-normal saline * will increase to D10 still having episodes of hypoglycemia * patient will recommend to discontinue her use of glipizide and GLP 1 at discharge * Accu-Cheks Q 6 hours * patient with good oral intake but poor urinary output * hypoglycemic protocol in place 07/27/ * Stabilized * switch back to dextrose 5 07/28 * Accu-Cheks changed back to a a.c. HS * diabetic diet ordered * hypoglycemic protocol in place * high-dose sliding scale insulin ordered * continue to hold glipizide and Mounjaro (6) Pneumonia: Code(s): J18.9 - Pneumonia, unspecified organism Status: Acute Assessment and Plan: * CXR: Suspected left lower lobe pneumonia. * Ceftriaxone and azithromycin * Oxygen PRN on RA * antipyretics 07/28 * change to renally dosed Levaquin x5 days (7) Obese: Code(s): E66.9 - Obesity, unspecified Status: Acute Assessment and Plan: * encourage increased on physical activity and lifestyle modifications * Stress monitoring * encourage outpatient weight loss clinic * Diet exercise counseling done. 07/28 * no change to current treatment plan (8) UTI (urinary tract infection): Qualifiers: Urinary tract infection type: acute cystitis Hematuria presence: without hematuria Qualified Code(s): N30.00 - Acute cystitis without hematuria Code(s): N39.0 - Urinary tract infection, site not specified Status: Ruled-out Assessment and Plan: * UA: Turbid, 2+ protein, 1+ glucose, trace ketones, 2+ leuks, 11-20 RBC, 21-50 WBC, few epithelial cells, 4+ bacteria. * UC pending * no previous micro available for review * started on Ceftriaxone on 07/25 RULED OUT Time Spent With Patient Time with patient: 25 - 35 minutes Subjective Date/time seen: 07/28/24 18:30 Interval history: Interval history: This is a 33-year-old female who presented to the hospital on 07/25/2024 with hypoglycemia secondary to nausea, vomiting, diarrhea. Workup in the hospital included a CT of the abdomen and pelvis which showed hepatomegaly, inflammatory change surrounding the bladder, no obstructive uropathy. Renal ultrasound sylwia wed normal kidneys without hydronephrosis. Chest x-ray showed suspected left lower lobe pneumonia. Initial labs showed a white blood cell count of 16.3, platelet count 464, eosinophils 6.3%, bicarb 17, anion gap 18, creatinine 6.94, EGFR 7, blood sugar 60, phosphorus 4.9, lipase 591, procalcitonin 0.6. UA was obtained which showed turbid urine appearance, 2+ urine protein, 1+ urine glucose, trace ketone, 2+ leukocyte, 11-20 urine RBC, 21-50 urine WBC, 4+ urine bacteria. Protein/creatinine ratio 0.84. Respiratory panel was negative for influenza a and B, RSV, COVID. Urine culture was negative. Blood culture showing no growth to date on preliminary read. Stool culture was negative for E coli, Salmonella /Shigella, Campylobacter antigen assay. 07/28/2024 Patient was initially started on azithromycin and Rocephin and was changed over to Levaquin today. She was on D5 NS for her low blood sugars however that has resolved. She is now on normal saline at 100 mL/hour. labs today showed a normal white blood cell count of 8.9, hemoglobin 9.7, eosinophils down to 0.8, bicarb 17, anion gap 14, creatinine down to 5.01, blood sugars ranging 119-133. Subjective: patient denies any fever, chills, nausea, vomiting, abdominal pain, chest pain, shortness a breath. She does endorse diarrhea initially however that has subsided. Labs and imaging reviewed. Review of Systems Review of Systems: All systems reviewed & are unremarkable except as noted in HPI and below Exam Narrative: General: In no acute distress, well nourished Cardiac: Normal S1 and S2. RRR, No murmur, gallops or friction rubs, peripheral pulses intact. Respiratory: Lungs clear to auscultation, no adventitious lung sounds, currently on room air Gastrointestinal: soft, non-distended, non-tender, normoactive bowel sounds. Reported diarrhea : voiding without difficulty. Extremities: moves all extremities well, no edema, good ROM Skin: clean, dry, intact. No wounds or lesions. Neuro: Alert and oriented x4 Objective Data Vital Signs Vital Signs: Vital Signs - 24 hr 07/27/24 20:00 07/27/24 21:13 07/28/24 06:00 Temperature 97.0 F L 97.0 F L Pulse Rate 98 83 Respiratory Rate 20 20 Blood Pressure 145/88 H 128/84 Pulse Oximetry 100 98 Oxygen Delivery Room Air 07/28/24 08:16 07/28/24 14:00 Temperature 98.1 F Pulse Rate 84 Respiratory Rate 18 Blood Pressure 134/83 Pulse Oximetry 98 Oxygen Delivery Room Air Intake/Output Intake/Output: Intake & Output 07/25/24 07/26/24 07/27/24 07/28/24 23:59 23:59 23:59 23:59 Intake Total 3240 5198.5 5028.5 4870 Output Total 500 4650 6400 Balance 3240 4698.5 378.5 -1530 Meds/Results Medications: Active Medications Generic Name Dose Route Start Last Admin Trade Name Freq PRN Reason Stop Dose Admin Acetaminophen 650 mg 07/25/24 22:39 07/28/24 09:02 Acetaminophen 325 Mg Tablet PO 650 mg Q4H PRN Administration Mild Pain (1-3) or Fever Hydrocodone Bitart/Acetaminophen 1 tab 07/26/24 00:18 07/28/24 12:46 Hydrocodone/Acetaminophen (*Crx) 5-325 Mg Tablet PO 1 tab Q4H PRN Administration Pain Rated 4-6 Buspirone HCl 2.5 mg/ 7.5 mg 07/26/24 09:00 07/28/24 08:53 Buspirone HCl 5 mg PO 7.5 mg Q12HR VICENTA Administration Dextrose 12.5 gm 07/25/24 22:53 07/26/24 10:02 Dextrose 50% 25 Gm/50 Ml Syringe IV PUSH 12.5 gm PRN PRN Administration Hypoglycemia Protocol Diphenoxylate HCl/Atropine 1 tablet 07/25/24 23:36 07/26/24 02:26 Diphenoxylate/Atropine (*Crx) 2.5 Mg Tablet PO 1 tablet PRN PRN Administration Diarrhea Enoxaparin Sodium 30 mg 07/26/24 09:00 07/28/24 08:53 Enoxaparin 30 Mg/0.3 Ml Syringe SUB-Q 30 mg DAILY VICENTA Administration Glucagon 1 mg 07/25/24 22:53 Glucagon For Inj 1 Mg Vial IM PRN PRN Hypoglycemia Protocol Glucose 15 gm 07/25/24 22:53 07/26/24 09:17 Glucose Oral Gel 15 Gm Of Glucse In 37.5 Gm Tube PO 15 gm PRN PRN Administration Hypoglycemia Protocol Hydroxyzine HCl 10 mg 07/26/24 07:24 Hydroxyzine Hcl 10 Mg Tablet PO BID PRN anxiety Sodium Chloride 1,000 mls @ 100 mls/hr 07/28/24 18:25 Normal Saline Iv IV CONT .Q10H [facility] Insulin Aspart 4 - 8 units 07/26/24 08:00 07/28/24 17:40 Insulin Aspart (*Bkc) 100 Units/Ml SUB-Q Not Given TIDWM [facility] Protocol Levofloxacin 500 mg 07/28/24 16:00 07/28/24 17:49 Levofloxacin 500 Mg Tablet PO 500 mg Q48H VICENTA Administration Loratadine 10 mg 07/26/24 07:45 Loratadine 10 Mg Tablet PO DAILY PRN allergy symptoms Melatonin 5 mg 07/28/24 21:00 Melatonin 5 Mg Tablet PO HS VICENTA Metoprolol Succinate 50 mg 07/26/24 21:00 07/27/24 20:58 Metoprolol Succinate Ext Rel 50 Mg Tabcr PO 50 mg HS VICENTA Administration Morphine Sulfate 2 mg 07/26/24 00:18 07/26/24 07:54 Morphine Sulfate (*Crx) 2 Mg/Ml Inj IV PUSH 2 mg Q4H PRN Administration Pain Rated 7-10 Ondansetron HCl 4 mg 07/25/24 22:39 07/27/24 08:48 Ondansetron Inj 4 Mg/2 Ml Vial IV PUSH 4 mg Q4H PRN Administration Nausea Pantoprazole Sodium 40 mg 07/26/24 09:00 07/28/24 08:53 Pantoprazole Sodium Iv 40 Mg Vial IV PUSH 40 mg QAM VICENTA Administration Rosuvastatin Calcium 5 mg 07/26/24 21:00 07/27/24 20:58 Rosuvastatin 5 Mg Tablet PO 5 mg HS VICENTA Administration Sertraline HCl 50 mg 07/26/24 09:00 07/28/24 08:53 Sertraline Hcl 50 Mg Tablet PO 50 mg DAILY VICENTA Administration Sodium Bicarbonate 1,300 mg 07/27/24 09:00 07/28/24 17:49 Sodium Bicarbonate Tab 650 Mg Tablet PO 1,300 mg TID VICENTA Administration Radiology Results: ITS Impressions Abdomen/Pelvis CT 07/25/24 21:52 IMPRESSION: Hepatomegaly. Inflammatory change surrounding the bladder. No obstructive uropathy. Renal Ultrasound 07/26/24 08:38 IMPRESSION: 1. Normal kidneys without hydronephrosis. Chest X-Ray 07/27/24 06:53 Impression: Suspected left lower lobe pneumonia. Labs Labs: Laboratory Results - last 24 hr 07/28/24 07/28/24 07/28/24 00:30 05:35 05:37 WBC 8.9 RBC 3.70 L Hgb 9.7 L Hct 30.7 L MCV 83.0 MCH 26.2 MCHC 31.6 L RDW 13.8 Plt Count 348 MPV 9.3 Immature Gran % (Auto) 0.3 Neut % (Auto) 67.1 Lymph % (Auto) 16.0 L [place] % (Auto) 7.1 Eos % (Auto) 8.6 H Baso % (Auto) 0.9 Lymph # (Auto) 1.43 [place] # (Auto) 0.6 Eos # (Auto) 0.8 H Baso # (Auto) 0.1 Abs Immat Gran (auto) 0.03 Absolute Neuts (auto) 6.0 Absolute Nucleated RBC 0.000 Nucleated RBC % 0.0 Sodium 141 Potassium 3.7 Chloride 111 H Carbon Dioxide 16 L Anion Gap 14 H BUN 46 H Creatinine 5.97 H Estim Creat Clear Calc 16 Estimated GFR 8 L Glucose 119 H POC Capillary Glucose 132 H 137 H Calcium 7.7 L Phosphorus 5.5 H Magnesium 1.5 L Total Bilirubin 0.3 AST 21 ALT 13 Alkaline Phosphatase 56 Total Protein 6.0 L Albumin 2.9 L Lipase 65 07/28/24 11:08 WBC RBC Hgb Hct MCV MCH MCHC RDW Plt Count MPV Immature Gran % (Auto) Neut % (Auto) Lymph % (Auto) [place] % (Auto) Eos % (Auto) Baso % (Auto) Lymph # (Auto) [place] # (Auto) Eos # (Auto) Baso # (Auto) Abs Immat Gran (auto) Absolute Neuts (auto) Absolute Nucleated RBC Nucleated RBC % Sodium Potassium Chloride Carbon Dioxide Anion Gap BUN Creatinine Estim Creat Clear Calc Estimated GFR Glucose POC Capillary Glucose 136 H Calcium Phosphorus Magnesium Total Bilirubin AST ALT Alkaline Phosphatase Total Protein Albumin Lipase Quality VTE Prophylaxis VTE prophylaxis: mechanical ordered and pharmacologic ordered
[2024-07-28 18:42] LABS: Anion Gap 14 mmol/L (4-12); Blood Urea Nitrogen 44 mg/dL (7-17); Calcium 7.8 mg/dL (8.4-10.2); Carbon Dioxide 17 mmol/L (22-30); Chloride 110 mmol/L (98-107); Estimated CRCL calculation 19 ml/min; Estimated Glomerular Filt Rate 10; Glucose 133 mg/dL (65-110); Potassium 3.7 mmol/L (3.4-5.0); Sodium 141 mmol/L (137-145)
[2024-07-28] MEDS: SODIUM CHLORIDE 0.9% IV 1,000 ML 100 ML IV CONT (19:09)
[2024-07-28 19:48] VITALS: PULSE 87; RESP 18; TEMP 36.7; O2SAT 100
[2024-07-28 20:27] VITALS: PULSE 86
[2024-07-28] MEDS: METOPROLOL SUCCINATE EXT REL 50 MG TABCR PO (20:27)
[2024-07-28] MEDS: ROSUVASTATIN 5 MG TABLET PO (20:27)
[2024-07-28] MEDS: MELATONIN 5 MG TABLET PO (20:27)
[2024-07-28 21:39] LABS: Glucose Point of Care 155 mg/dl (65-105)
[2024-07-28 21:47] VITALS: BP 144/94
[2024-07-29] MEDS: SODIUM CHLORIDE 0.9% IV 1,000 ML 100 ML IV CONT ×2 (04:10→15:09)
[2024-07-29 04:11] VITALS: BP 154/93; PULSE 76; RESP 16; TEMP 36.3; O2SAT 100
[2024-07-29 06:34] LABS: Basophils Absolute Auto 0.1 K/mm3 (0.0-0.1); Basophils Percent Auto 0.8 % (0.2-1.2); Eosinophils Absolute Auto 0.6 K/mm3 (0-0.3); Eosinophils Percent Auto 6.7 % (0-4.4); Hematocrit 29.4 % (37.0-47.0); Hemoglobin 9.5 g/dL (12.0-15.0); Immature Granulocyte Absolute 0.06 K/mm3 (0.00-0.031); Immature Granulocyte Percent A 0.7 % (0-0.5); Lymphocytes Absolute Auto 1.25 K/mm3 (0.9-3.2); Lymphocytes Percent Auto 14.6 % (18.3-44.2); Mean Corpuscular HGB Conc 32.3 g/dl (32-36); Mean Corpuscular Hemoglobin 26.3 pg (26-34); Mean Corpuscular Volume 81.4 fl (80-100); Mean Platelet Volume 9.2 fl (7.4-10.4); Monocytes Absolute Auto 0.5 K/mm3 (0.1-0.6); Monocytes Percent Auto 6.3 % (2.6-8.5); Neutrophils Absolute Auto 6.1 K/mm3 (1.3-6.7); Neutrophils Percent Auto 70.9 % (45.5-73.1); Platelet Count Result 351 k/mm3 (150-375); Red Blood Count 3.61 M/mm3 (4.2-5.4); Red Cell Distribution Width 13.4 % (11.5-14.5); White Blood Count 8.5 K/mm3 (4.5-10.0)
[2024-07-29 06:41] LABS: Alanine Aminotransferase 14 U/L (6-35); Alkaline Phosphatase 56 U/L (38-126); Anion Gap 11 mmol/L (4-12); Aspartate Amino Transferase 18 U/L (14-36); Bilirubin,Total 0.3 mg/dL (0.2-1.3); Blood Urea Nitrogen 37 mg/dL (7-17); Calcium 7.8 mg/dL (8.4-10.2); Carbon Dioxide 19 mmol/L (22-30); Chloride 111 mmol/L (98-107); Estimated CRCL calculation 22 ml/min; Estimated Glomerular Filt Rate 12; Glucose 112 mg/dL (65-110); Lipase 134 U/L (23-300); Magnesium 1.3 mg/dL (1.6-2.3); Phosphorus 5.5 mg/dL (2.5-4.5); Potassium 3.4 mmol/L (3.4-5.0); Sodium 141 mmol/L (137-145)
--- NOTE | 2024-07-29 08:25 | P.PNIM_ITS ---
Progress Note: A&P Assessment and Plan (1) Acute renal failure: Qualifiers: Acute renal failure type: unspecified Qualified Code(s): N17.9 - Acute kidney failure, unspecified Code(s): N17.9 - Acute kidney failure, unspecified Status: Acute Assessment and Plan: patient presented to the emergency department with days nausea vomiting diarrhea most severe dehydration unknown infectious cause what does appear to possible pancreatitis * nephrology consulted * creatinine 6.94 and GFR 7, previously 0.6 and GFR >60 on 10/03/2023 * aggressive IV fluids * renal ultrasound * prerenal? * add CK, urine sodium, protein/creatinine, urea * UA showed 2+ protein * monitor I&Os, may need Parikh placed for accurate I&Os if unable to measure via hat due to diarrhea * IV fluids: 3L bolus -> D5/NS 150 mL/hr * patient will need to discontinue her lisinopril and hydrochlorothiazide inpatient and on discharge will also discontinue her glipizide which is likely causing her hypoglycemia due to ALYSON and dehydration * Placed parikh catheter for strict I&O's poor reported urinary output 07/27/24: * Urinary output increased today * Cr slow downtrend * continue with aggressive IV fluids pending renal recovery 07/28 * Creatinine down to 5.97 * will switch IV fluids to normal saline at 100 mL/hour * continue to trend * monitor strict I&O * renal ultrasound showed normal kidneys without hydronephrosis * likely due to dehydration 07/29 * Creatinine 4.14 * Continue IV fluids * Continue to trend (2) Metabolic acidosis: Code(s): E87.20 - Acidosis, unspecified Status: Acute Assessment and Plan: * Carbon dioxide 12L * bicarb tablets added TID * likely secondary to dehydration and ALYSON 07/28 * carbon dioxide 16 * continue bicarb tablets t.i.d. 07/29 * Bicarb 19 * Continue to trend (3) Pancreatitis: Qualifiers: Acute pancreatitis complication: unspecified Chronicity: acute Pancreatitis type: unspecified pancreatitis type Qualified Code(s): K85.90 - Acute pancreatitis without necrosis or infection, unspecified Code(s): K85.90 - Acute pancreatitis without necrosis or infection, unspecified Status: Resolved Assessment and Plan: * lipase 591, trend * limited to of pancreas on CT due to lack of contrast * IV fluids * analgesics p.r.n. * PPI * antiemetics * lipase trending up continue with daily lipase * clear liquid diet will advance as tolerated * Will need to discontinue her GLP1 medication * Lipid panel pending to evaluate hypertriglyceridemia RESOLVED (4) Dehydration: Code(s): E86.0 - Dehydration Status: Acute Assessment and Plan: * N/V/D for multiple days likely viral infection * likely secondary to pancreatitis possibly from GLP1 medication may need to discontinue * Lipid panel ordered * Aggressive IV fluids 2/ * continue IV fluids 2/6 * No change to current treatment plan (5) Hypoglycemia associated with type 2 diabetes mellitus: Code(s): E11.649 - Type 2 diabetes mellitus with hypoglycemia without coma Status: Acute Assessment and Plan: patient with severe hypoglycemia POA slightly secondary to patient's continued dehydration, nausea, vomiting diarrhea and acute kidney injury while she was t aking was taking glipizide also on a GLP 1 * initially started on D5 half-normal saline * will increase to D10 still having episodes of hypoglycemia * patient will recommend to discontinue her use of glipizide and GLP 1 at discharge * Accu-Cheks Q 6 hours * patient with good oral intake but poor urinary output * hypoglycemic protocol in place 07/27/ * Stabilized * switch back to dextrose 5 07/28 * Accu-Cheks changed back to a a.c. HS * diabetic diet ordered * hypoglycemic protocol in place * high-dose sliding scale insulin ordered * continue to hold glipizide and Mounjaro 07/29 * No change (6) Pneumonia: Code(s): J18.9 - Pneumonia, unspecified organism Status: Acute Assessment and Plan: * CXR: Suspected left lower lobe pneumonia. * Ceftriaxone and azithromycin * Oxygen PRN on RA * antipyretics 07/28 * change to renally dosed Levaquin x5 days 07/29 * No change (7) Obese: Code(s): E66.9 - Obesity, unspecified Status: Acute Assessment and Plan: * encourage increased on physical activity and lifestyle modifications * Stress monitoring * encourage outpatient weight loss clinic * Diet exercise counseling done. 07/28 * no change to current treatment plan (8) UTI (urinary tract infection): Qualifiers: Hematuria presence: without hematuria Urinary tract infection type: acute cystitis Qualified Code(s): N30.00 - Acute cystitis without hematuria Code(s): N39.0 - Urinary tract infection, site not specified Status: Ruled-out Assessment and Plan: * UA: Turbid, 2+ protein, 1+ glucose, trace ketones, 2+ leuks, 11-20 RBC, 21-50 WBC, few epithelial cells, 4+ bacteria. * UC pending * no previous micro available for review * started on Ceftriaxone on 07/25 RULED OUT (9) HTN (hypertension): Code(s): I10 - Essential (primary) hypertension Status: Acute Assessment and Plan: * Lisinopril and hydrochlorothiazide held due to acute kidney injury * Will start Coreg * Hydralazine ordered for systolic greater than 160 Time Spent With Patient Time with patient: 25 - 35 minutes Subjective Date/time seen: 07/29/24 08:25 Interval history: Interval history: This is a 33-year-old female who presented to the hospital on 07/25/2024 with hypoglycemia secondary to nausea, vomiting, diarrhea. Workup in the hospital included a CT of the abdomen and pelvis which showed hepatomegaly, inflammatory change surrounding the bladder, no obstructive uropathy. Renal ultrasound showed normal kidneys without hydronephrosis. Chest x-ray showed suspected left lower lobe pneumonia. Initial labs showed a white blood cell count of 16.3, platelet count 464, eosinophils 6.3%, bicarb 17, anion gap 18, creatinine 6.94, EGFR 7, blood sugar 60, phosphorus 4.9, lipase 591, procalcitonin 0.6. UA was obtained which showed turbid urine appearance, 2+ urine protein, 1+ urine glucose, trace ketone, 2+ leukocyte, 11-20 urine RBC, 21-50 urine WBC, 4+ urine bacteria. Protein/creatinine ratio 0.84. Respiratory panel was negative for influenza a and B, RSV, COVID. Urine culture was negative. Blood culture showing no growth to date on preliminary read. Stool culture was negative for E coli, Salmonella /Shigella, Campylobacter antigen assay. 07/28/2024 Patient was initially started on azithromycin and Rocephin and was changed over to Levaquin today. She was on D5 NS for her low blood sugars however that has resolved. She is now on normal saline at 100 mL/hour. labs today showed a normal white blood cell count of 8.9, hemoglobin 9.7, eosinophils down to 0.8, bicarb 17, anion gap 14, creatinine down to 5.01, blood sugars ranging 119-133. Subjective: Patient denies any new complaints today. Labs reviewed. Review of Systems Review of Systems: All systems reviewed & are unremarkable except as noted in HPI and below Exam Narrative: General: In no acute distress, well nourished Cardiac: Normal S1 and S2. RRR, No murmur, gallops or friction rubs, peripheral pulses intact. Respiratory: Lungs clear to auscultation, no adventitious lung sounds, currently on room air Gastrointestinal: soft, non-distended, non-tender, normoactive bowel sounds. : voiding without difficulty. Extremities: moves all extremities well, no edema, good ROM Skin: clean, dry, intact. No wounds or lesions. Neuro: Alert and oriented x4 Objective Data Vital Signs Vital Signs: Vital Signs - 24 hr 07/28/24 14:00 07/28/24 19:48 07/28/24 20:00 Temperature 98.1 F 98.1 F Pulse Rate 84 87 Respiratory Rate 18 18 Blood Pressure 134/83 Pulse Oximetry 98 100 Oxygen Delivery Room Air 07/28/24 20:27 07/28/24 21:47 07/29/24 04:11 Temperature 97.4 F L Pulse Rate 86 76 Respiratory Rate 16 Blood Pressure 144/94 H 154/93 H Pulse Oximetry 100 Oxygen Delivery Intake/Output Intake/Output: Intake & Output 07/26/24 07/27/24 07/28/24 07/29/24 23:59 23:59 23:59 23:59 Intake Total 5198.5 5028.5 4870 1351.7 Output Total 500 4650 6400 2700 Balance 4698.5 378.5 -1530 -1348.3 Meds/Results Medications: Active Medications Generic Name Dose Route Start Last Admin Trade Name Mimi PRN Reason Stop Dose Admin Acetaminophen 650 mg 07/25/24 22:39 07/28/24 09:02 Acetaminophen 325 Mg Tablet PO 650 mg Q4H PRN Administration Mild Pain (1-3) or Fever Hydrocodone Bitart/Acetaminophen 1 tab 07/26/24 00:18 07/28/24 19:15 Hydrocodone/Acetaminophen (*Crx) 5-325 Mg Tablet PO 1 tab Q4H PRN Administration Pain Rated 4-6 Buspirone HCl 2.5 mg/ 7.5 mg 07/26/24 09:00 07/28/24 20:27 Buspirone HCl 5 mg PO 7.5 mg Q12HR VICENTA Administration Dextrose 12.5 gm 07/25/24 22:53 07/26/24 10:02 Dextrose 50% 25 Gm/50 Ml Syringe IV PUSH 12.5 gm PRN PRN Administration Hypoglycemia Protocol Diphenoxylate HCl/Atropine 1 tablet 07/25/24 23:36 07/26/24 02:26 Diphenoxylate/Atropine (*Crx) 2.5 Mg Tablet PO 1 tablet PRN PRN Administration Diarrhea Enoxaparin Sodium 30 mg 07/26/24 09:00 07/28/24 08:53 Enoxaparin 30 Mg/0.3 Ml Syringe SUB-Q 30 mg DAILY VICENTA Administration Glucagon 1 mg 07/25/24 22:53 Glucagon For Inj 1 Mg Vial IM PRN PRN Hypoglycemia Protocol Glucose 15 gm 07/25/24 22:53 07/26/24 09:17 Glucose Oral Gel 15 Gm Of Glucse In 37.5 Gm Tube PO 15 gm PRN PRN Administration Hypoglycemia Protocol Hydroxyzine HCl 10 mg 07/26/24 07:24 Hydroxyzine Hcl 10 Mg Tablet PO BID PRN anxiety Sodium Chloride 1,000 mls @ 100 mls/hr 07/28/24 18:25 07/29/24 04:10 Normal Saline Iv IV CONT 100 mls/hr .Q10H VICENTA Administration Magnesium Sulfate 2 gm in 50 mls @ 25 mls/hr 07/29/24 08:21 Magnesium Sulf 2 Gm/Water 50ml IVPB 07/29/24 10:20 ONCE ONE Insulin Aspart 4 - 8 units 07/26/24 08:00 07/29/24 08:17 Insulin Aspart (*Bkc) 100 Units/Ml SUB-Q Not Given TIDWM [facility] Protocol Levofloxacin 500 mg 07/28/24 16:00 07/28/24 17:49 Levofloxacin 500 Mg Tablet PO 500 mg Q48H VICENTA Administration Loratadine 10 mg 07/26/24 07:45 Loratadine 10 Mg Tablet PO DAILY PRN allergy symptoms Melatonin 5 mg 07/28/24 21:00 07/28/24 20:27 Melatonin 5 Mg Tablet PO 5 mg HS VICENTA Administration Metoprolol Succinate 50 mg 07/26/24 21:00 07/28/24 20:27 Metoprolol Succinate Ext Rel 50 Mg Tabcr PO 50 mg HS VICENTA Administration Morphine Sulfate 2 mg 07/26/24 00:18 07/26/24 07:54 Morphine Sulfate (*Crx) 2 Mg/Ml Inj IV PUSH 2 mg Q4H PRN Administration Pain Rated 7-10 Ondansetron HCl 4 mg 07/25/24 22:39 07/27/24 08:48 Ondansetron Inj 4 Mg/2 Ml Vial IV PUSH 4 mg Q4H PRN Administration Nausea Pantoprazole Sodium 40 mg 07/26/24 09:00 07/28/24 08:53 Pantoprazole Sodium Iv 40 Mg Vial IV PUSH 40 mg QAM VICENTA Administration Rosuvastatin Calcium 5 mg 07/26/24 21:00 07/28/24 20:27 Rosuvastatin 5 Mg Tablet PO 5 mg HS VICENTA Administration Sertraline HCl 50 mg 07/26/24 09:00 07/28/24 08:53 Sertraline Hcl 50 Mg Tablet PO 50 mg DAILY VICENTA Administration Sodium Bicarbonate 1,300 mg 07/27/24 09:00 07/28/24 17:49 Sodium Bicarbonate Tab 650 Mg Tablet PO 1,300 mg TID VICENTA Administration Radiology Results: ITS Impressions Abdomen/Pelvis CT 07/25/24 21:52 IMPRESSION: Hepatomegaly. Inflammatory change surrounding the bladder. No obstructive uropathy. Renal Ultrasound 07/26/24 08:38 IMPRESSION: 1. Normal kidneys without hydronephrosis. Chest X-Ray 07/27/24 06:53 Impression: Suspected left lower lobe pneumonia. Labs Labs: Laboratory Results - last 24 hr 07/28/24 07/28/2407/28/25 11:08 18:09 19:53 WBC RBC Hgb Hct MCV MCH MCHC RDW Plt Count MPV Immature Gran % (Auto) Neut % (Auto) Lymph % (Auto) [place] % (Auto) Eos % (Auto) Baso % (Auto) Lymph # (Auto) [place] # (Auto) Eos # (Auto) Baso # (Auto) Abs Immat Gran (auto) Absolute Neuts (auto) Absolute Nucleated RBC Nucleated RBC % Sodium 141 Potassium 3.7 Chloride 110 H Carbon Dioxide 17 L Anion Gap 14 H BUN 44 H Creatinine 5.01 H Estim Creat Clear Calc 19 Estimated GFR 10 L Glucose 133 H POC Capillary Glucose 136 H 155 H Calcium 7.8 L Phosphorus Magnesium Total Bilirubin AST ALT Alkaline Phosphatase Total Protein Albumin Lipase 07/29/24 05:40 WBC 8.5 RBC 3.61 L Hgb 9.5 L Hct 29.4 L MCV 81.4 MCH 26.3 MCHC 32.3 RDW 13.4 Plt Count 351 MPV 9.2 Immature Gran % (Auto) 0.7 H Neut % (Auto) 70.9 Lymph % (Auto) 14.6 L [place] % (Auto) 6.3 Eos % (Auto) 6.7 H Baso % (Auto) 0.8 Lymph # (Auto) 1.25 [place] # (Auto) 0.5 Eos # (Auto) 0.6 H Baso # (Auto) 0.1 Abs Immat Gran (auto) 0.06 H Absolute Neuts (auto) 6.1 Absolute Nucleated RBC 0.000 Nucleated RBC % 0.0 Sodium 141 Potassium 3.4 Chloride 111 H Carbon Dioxide 19 L Anion Gap 11 BUN 37 H Creatinine 4.14 H Estim Creat Clear Calc 22 Estimated GFR 12 L Glucose 112 H POC Capillary Glucose Calcium 7.8 L Phosphorus 5.5 H Magnesium 1.3 L Total Bilirubin 0.3 AST 18 ALT 14 Alkaline Phosphatase 56 Total Protein 6.0 L Albumin 3.0 L Lipase 134 Quality VTE Prophylaxis VTE prophylaxis: mechanical ordered and pharmacologic ordered
[2024-07-29 08:28] LABS: Glucose Point of Care 106 mg/dl (65-105)
[2024-07-29] MEDS: MAGNESIUM SULF 2 GM/WATER 50ML 2 GM/50 ML BAG IVPB (08:56)
[2024-07-29] MEDS: PANTOPRAZOLE SODIUM IV 40 MG VIAL IV PUSH (08:56)
[2024-07-29] MEDS: busPIRone HCL 2.5 MG, busPIRone HCL 5 MG 7.5 MG PO ×2 (08:57→21:07)
[2024-07-29] MEDS: SERTRALINE HCL 50 MG TABLET PO (08:57)
[2024-07-29] MEDS: SODIUM BICARBONATE TAB 650 MG TABLET 1300 MG PO ×3 (08:57→17:55)
[2024-07-29] MEDS: ENOXAPARIN 30 MG/0.3 ML SYRINGE SUB-Q (08:58)
[2024-07-29 12:11] LABS: Glucose Point of Care 178 mg/dl (65-105)
--- NOTE | 2024-07-29 12:35 | P.PNNP_ITS ---
Progress Note: A&P Assessment and Plan (1) ALYSON (acute kidney injury): Code(s): N17.9 - Acute kidney failure, unspecified Status: Acute Assessment and Plan: * improvement noted by trend of labs * history would suggest volume depletion * several days of nausea + vomiting + diarrhea * likely worsened by AJAY-I + HCTZ use prior to admission * pancreatitis playing a role(?) * may have developed a component of ATN for prolonged renal hypoperfusion * evaluation to date noted: * normal renal ultrasound * CT A/P negative (and no evidence of pancreatitis) * urine electrolytes prerenal (by FeUrea) * UA suggest infection (but urine culture negative) * moderate proteinuria * CPK okay * urine eosinophils negative * wean IVFs since eating and drinking well * follow trend of repeat labs and UOP (2) Metabolic acidosis: Code(s): E87.20 - Acidosis, unspecified Status: Acute Assessment and Plan: * slow improvement * quite significant on admission * attempting to compensate with oral sodium bicarbonate * presumably due to #1 * follow CO2 levels (3) Pancreatitis: Qualifiers: Acute pancreatitis complication: unspecified Chronicity: acute P ancreatitis type: unspecified pancreatitis type Qualified Code(s): K85.90 - Acute pancreatitis without necrosis or infection, unspecified Code(s): K85.90 - Acute pancreatitis without necrosis or infection, unspecified Status: Resolved Assessment and Plan: * suggested by admission lipase * limited assessment of pancreas by admission CT scan * lipase peaked at 988 with now normalization * tolerating diet (4) Pneumonia: Code(s): J18.9 - Pneumonia, unspecified organism Status: Acute Assessment and Plan: * noted by recent CXR * on antibiotics * follow culture data * no clinical symptoms * on room air (5) Hypoglycemia associated with type 2 diabetes mellitus: Code(s): E11.649 - Type 2 diabetes mellitus with hypoglycemia without coma Status: Acute Assessment and Plan: * quite profound on admission * suspect due to poor oral intake/GI symptoms compounded by use of oral hypoglycemic agents * was requiring D10 IVFs to maintain blood sugars * now weaned down to D5 IVFs * wean IVFs as oral intake improves (6) UTI (urinary tract infection): Qualifiers: Hematuria presence: without hematuria Urinary tract infection type: a cute cystitis Qualified Code(s): N30.00 - Acute cystitis without hematuria Code(s): N39.0 - Urinary tract infection, site not specified Status: Ruled-out Assessment and Plan: * suspected based on admission UA * empiric antibiotics * urine culture negative Will continue to follow. L Subjective Date/time seen: 07/29/24 12:35 Interval history: Follow-up for acute kidney injury/acute renal failure. Overall, states she is feeling significantly better; renal function/creatinine contineus to improve with current therapy/interventions; continues to have good urine output as well; no acute issues/events overnight or earlier this morning; no apparent distress noted. Exam 2 Narrative: General: WD/WN female in NAD Heart: normal S1 and S2; no rub Lungs: clear to auscultation Abdomen: soft, nontender, nondistended, positive bowel sounds Extremities: no cyanosis or clubbing; no edema Skin: no rash Objective Data Vital Signs Vital Signs: Vital Signs Temp Pulse Resp BP Pulse Ox O2 Del Method 07/29/24 12:20 97.6 F 83 14 160/103 H 100 07/29/24 09:08 Room Air 07/29/24 04:11 97.4 F L 76 16 154/93 H 100 07/28/24 21:47 144/94 H 07/28/24 20:27 86 07/28/24 20:00 Room Air 07/28/24 19:48 98.1 F 87 18 100 Intake/Output Intake/Output: Intake & Output 07/26/24 07/27/24 07/28/24 07/29/24 23:59 23:59 23:59 23:59 Intake Total 5198.5 5028.5 4870 3281.7 Output Total 500 4650 6400 6250 Balance 4698.5 378.5 -1530 -2968.3 Meds/Results Medications: Active Medications Generic Name Dose Route Start Last Admin Trade Name Freq PRN Reason Stop Dose Admin Acetaminophen 650 mg 07/25/24 22:39 07/28/24 09:02 Acetaminophen 325 Mg Tablet PO 650 mg Q4H PRN Administration Mild Pain (1-3) or Fever Hydrocodone Bitart/Acetaminophen 1 tab 07/26/24 00:18 07/28/24 19:15 Hydrocodone/Acetaminophen (*Crx) 5-325 Mg Tablet PO 1 tab Q4H PRN Administration Pain Rated 4-6 Buspirone HCl 2.5 mg/ 7.5 mg 07/26/24 09:00 07/29/24 08:57 Buspirone HCl 5 mg PO 7.5 mg Q12HR VICENTA Administration Carvedilol 3.125 mg 07/29/24 10:55 07/29/24 13:21 Carvedilol 3.125 Mg Tablet PO 3.125 mg Q12HR VICENTA Administration Dextrose 12.5 gm 07/25/24 22:53 07/26/24 10:02 Dextrose 50% 25 Gm/50 Ml Syringe IV PUSH 12.5 gm PRN PRN Administration Hypoglycemia Protocol Diphenoxylate HCl/Atropine 1 tablet 07/25/24 23:36 07/26/24 02:26 Diphenoxylate/Atropine (*Crx) 2.5 Mg Tablet PO 1 tablet PRN PRN Administration Diarrhea Enoxaparin Sodium 30 mg 07/26/24 09:00 07/29/24 08:58 Enoxaparin 30 Mg/0.3 Ml Syringe SUB-Q 30 mg DAILY VICENTA Administration Glucagon 1 mg 07/25/24 22:53 Glucagon For Inj 1 Mg Vial IM PRN PRN Hypoglycemia Protocol Glucose 15 gm 07/25/24 22:53 07/26/24 09:17 Glucose Oral Gel 15 Gm Of Glucse In 37.5 Gm Tube PO 15 gm PRN PRN Administration Hypoglycemia Protocol Hydralazine HCl 10 mg 07/29/24 17:10 Hydralazine Hcl 20 Mg/Ml Vial IV PUSH Q8H PRN Blood Pressure - High Hydroxyzine HCl 10 mg 07/26/24 07:24 Hydroxyzine Hcl 10 Mg Tablet PO BID PRN anxiety Sodium Chloride 1,000 mls @ 100 mls/hr 07/28/24 18:25 07/29/24 15:09 Normal Saline Iv IV CONT 100 mls/hr .Q10H VICENTA Administration Insulin Aspart 4 - 8 units 07/26/24 08:00 07/29/24 17:08 Insulin Aspart (*Bkc) 100 Units/Ml SUB-Q Not Given TIDWM [facility] Protocol Levofloxacin 500 mg 07/28/24 16:00 07/28/24 17:49 Levofloxacin 500 Mg Tablet PO 500 mg Q48H VICENTA Administration Loratadine 10 mg 07/26/24 07:45 Loratadine 10 Mg Tablet PO DAILY PRN allergy symptoms Melatonin 5 mg 07/28/24 21:00 07/28/24 20:27 Melatonin 5 Mg Tablet PO 5 mg HS VICENTA Administration Metoprolol Succinate 50 mg 07/26/24 21:00 07/28/24 20:27 Metoprolol Succinate Ext Rel 50 Mg Tabcr PO 50 mg HS VICENTA Administration Morphine Sulfate 2 mg 07/26/24 00:18 07/26/24 07:54 Morphine Sulfate (*Crx) 2 Mg/Ml Inj IV PUSH 2 mg Q4H PRN Administration Pain Rated 7-10 Ondansetron HCl 4 mg 07/25/24 22:39 07/27/24 08:48 Ondansetron Inj 4 Mg/2 Ml Vial IV PUSH 4 mg Q4H PRN Administration Nausea Pantoprazole Sodium 40 mg 07/26/24 09:00 07/29/24 08:56 Pantoprazole Sodium Iv 40 Mg Vial IV PUSH 40 mg QAM VICENTA Administration Rosuvastatin Calcium 5 mg 07/26/24 21:00 07/28/24 20:27 Rosuvastatin 5 Mg Tablet PO 5 mg HS VICENTA Administration Sertraline HCl 50 mg 07/26/24 09:00 07/29/24 08:57 Sertraline Hcl 50 Mg Tablet PO 50 mg DAILY VICENTA Administration Sodium Bicarbonate 1,300 mg 07/27/24 09:00 07/29/24 13:20 Sodium Bicarbonate Tab 650 Mg Tablet PO 1,300 mg TID VICENTA Administration Radiology Results: ITS Impressions Abdomen/Pelvis CT 07/25/24 21:52 IMPRESSION: Hepatomegaly. Inflammatory change surrounding the bladder. No obstructive uropathy. Renal Ultrasound 07/26/24 08:38 IMPRESSION: 1. Normal kidneys without hydronephrosis. Chest X-Ray 07/27/24 06:53 Impression: Suspected left lower lobe pneumonia. Labs Labs: Laboratory Tests 07/29/24 05:40 07/29/24 05:40 Calcium 7.8 L Phosphorus 5.5 H Magnesium 1.3 L Total Bilirubin 0.3 AST 18 ALT 14 Alkaline Phosphatase 56 Total Protein 6.0 L Albumin 3.0 L Lipase 134 Microbiology 07/26/24 01:02 Stool Escherichia coli Shiga Toxins - Final 07/26/24 01:02 Stool Salmonella/Shigella Culture - Final 07/26/24 01:02 Stool Campylobacter Antigen Assay - Final
[2024-07-29 13:20] VITALS: BP 160/103; PULSE 83; RESP 14; TEMP 36.4; O2SAT 100
[2024-07-29 13:21] VITALS: PULSE 83
[2024-07-29] MEDS: carvediloL 3.125 MG TABLET PO ×2 (13:21→21:07)
[2024-07-29 17:06] LABS: Glucose Point of Care 155 mg/dl (65-105)
[2024-07-29 17:54] LABS: Anion Gap 12 mmol/L (4-12); Blood Urea Nitrogen 34 mg/dL (7-17); Carbon Dioxide 20 mmol/L (22-30); Chloride 108 mmol/L (98-107); Estimated CRCL calculation 29 ml/min; Estimated Glomerular Filt Rate 17; Glucose 131 mg/dL (65-110); Potassium 3.3 mmol/L (3.4-5.0); Sodium 140 mmol/L (137-145)
[2024-07-29] MEDS: MELATONIN 5 MG TABLET PO (21:07)
[2024-07-29] MEDS: METOPROLOL SUCCINATE EXT REL 50 MG TABCR PO (21:07)
[2024-07-29] MEDS: ROSUVASTATIN 5 MG TABLET PO (21:07)
[2024-07-29 21:08] VITALS: BP 162/97; PULSE 85; RESP 18; TEMP 36.4; O2SAT 96
[2024-07-29 21:44] LABS: Glucose Point of Care 140 mg/dl (65-105)
[2024-07-30] MEDS: SODIUM CHLORIDE 0.9% IV 1,000 ML 100 ML IV CONT ×2 (01:10→11:00)
[2024-07-30 04:25] VITALS: BP 159/90; PULSE 72; RESP 16; TEMP 36.1; O2SAT 97
[2024-07-30 06:21] LABS: Basophils Absolute Auto 0.1 K/mm3 (0.0-0.1); Eosinophils Absolute Auto 0.6 K/mm3 (0-0.3); Eosinophils Percent Auto 7.3 % (0-4.4); Hematocrit 29.3 % (37.0-47.0); Hemoglobin 9.5 g/dL (12.0-15.0); Immature Granulocyte Absolute 0.04 K/mm3 (0.00-0.031); Immature Granulocyte Percent A 0.5 % (0-0.5); Lymphocytes Absolute Auto 1.49 K/mm3 (0.9-3.2); Mean Corpuscular HGB Conc 32.4 g/dl (32-36); Mean Corpuscular Hemoglobin 26.2 pg (26-34); Mean Corpuscular Volume 80.9 fl (80-100); Mean Platelet Volume 9.1 fl (7.4-10.4); Monocytes Absolute Auto 0.5 K/mm3 (0.1-0.6); Monocytes Percent Auto 6.4 % (2.6-8.5); Neutrophils Absolute Auto 5.5 K/mm3 (1.3-6.7); Neutrophils Percent Auto 66.8 % (45.5-73.1); Platelet Count Result 371 k/mm3 (150-375); Red Blood Count 3.62 M/mm3 (4.2-5.4); Red Cell Distribution Width 13.3 % (11.5-14.5); White Blood Count 8.3 K/mm3 (4.5-10.0)
[2024-07-30 06:47] LABS: Alanine Aminotransferase 15 U/L (6-35); Albumin Level 3.2 g/dL (3.5-5.1); Alkaline Phosphatase 63 U/L (38-126); Anion Gap 12 mmol/L (4-12); Aspartate Amino Transferase 20 U/L (14-36); Bilirubin,Total 0.3 mg/dL (0.2-1.3); Blood Urea Nitrogen 27 mg/dL (7-17); Calcium 8.1 mg/dL (8.4-10.2); Carbon Dioxide 22 mmol/L (22-30); Chloride 109 mmol/L (98-107); Estimated CRCL calculation 35 ml/min; Estimated Glomerular Filt Rate 21; Glucose 122 mg/dL (65-110); Lipase 117 U/L (23-300); Magnesium 1.5 mg/dL (1.6-2.3); Phosphorus 4.2 mg/dL (2.5-4.5); Potassium 3.1 mmol/L (3.4-5.0); Sodium 143 mmol/L (137-145)
[2024-07-30] MEDS: ENOXAPARIN 30 MG/0.3 ML SYRINGE SUB-Q (08:39)
[2024-07-30 08:40] VITALS: PULSE 76
[2024-07-30] MEDS: SERTRALINE HCL 50 MG TABLET PO (08:40)
[2024-07-30] MEDS: carvediloL 3.125 MG TABLET PO (08:40)
[2024-07-30] MEDS: busPIRone HCL 2.5 MG, busPIRone HCL 5 MG 7.5 MG PO ×2 (08:40→21:32)
[2024-07-30] MEDS: SODIUM BICARBONATE TAB 650 MG TABLET 1300 MG PO ×3 (08:40→16:26)
[2024-07-30] MEDS: PANTOPRAZOLE SODIUM IV 40 MG VIAL IV PUSH (08:40)
[2024-07-30 08:42] LABS: Glucose Point of Care 191 mg/dl (65-105)
[2024-07-30] MEDS: MAGNESIUM OXIDE 400 MG TABLET PO (08:43)
[2024-07-30] MEDS: POTASSIUM CHLORIDE 20 MEQ ER TABLET 40 MEQ PO (08:43)
[2024-07-30] MEDS: ACETAMINOPHEN 325 MG TABLET 650 MG PO ×3 (08:44→16:28)
--- NOTE | 2024-07-30 09:55 | P.PNNP_ITS ---
Progress Note: A&P Assessment and Plan (1) ALYSON (acute kidney injury): Code(s): N17.9 - Acute kidney failure, unspecified Status: Acute Assessment and Plan: * improvement noted by trend of labs * history would suggest volume depletion * several days of nausea + vomiting + diarrhea * likely worsened by AJAY-I + HCTZ use prior to admission * pancreatitis playing a role(?) * may have developed a component of ATN for prolonged renal hypoperfusion * evaluation to date noted: * normal renal ultrasound * CT A/P negative (and no evidence of pancreatitis) * urine electrolytes prerenal (by FeUrea) * UA suggest infection (but urine culture negative) * moderate proteinuria * CPK okay * urine eosinophils negative * slowly wean IVFs since eating and drinking well * follow trend of repeat labs and UOP (2) Metabolic acidosis: Code(s): E87.20 - Acidosis, unspecified Status: Acute Assessment and Plan: * slow improvement if not resolving * quite significant on admission * attempting to compensate with oral sodium bicarbonate * presumably due to #1 * follow CO2 levels * wean off sodium bicarbonate (3) Pancreatitis: Qualifiers: Acute pancreatitis complication: unspecified Chronicity: acute P ancreatitis type: unspecified pancreatitis type Qualified Code(s): K85.90 - Acute pancreatitis without necrosis or infection, unspecified Code(s): K85.90 - Acute pancreatitis without necrosis or infection, unspecified Status: Resolved Assessment and Plan: * suggested by admission lipase * limited assessment of pancreas by admission CT scan * lipase peaked at 988 with now normalization * tolerating diet (4) Pneumonia: Code(s): J18.9 - Pneumonia, unspecified organism Status: Acute Assessment and Plan: * noted by recent CXR * on antibiotics * follow culture data * no clinical symptoms * on room air (5) UTI (urinary tract infection): Qualifiers: Hematuria presence: without hematuria Urinary tract infection type: a cute cystitis Qualified Code(s): N30.00 - Acute cystitis without hematuria Code(s): N39.0 - Urinary tract infection, site not specified Status: Ruled-out Assessment and Plan: * suspected based on admission UA * empiric antibiotics * urine culture negative (6) Hypoglycemia associated with type 2 diabetes mellitus: Code(s): E11.649 - Type 2 diabetes mellitus with hypoglycemia without coma Status: Acute Assessment and Plan: * quite profound on admission * suspect due to poor oral intake/GI symptoms compounded by use of oral hypoglycemic agents * was requiring D10 IVFs to maintain blood sugars * off dextrose IVFs * follow accu-cheks * glycemic control per hospitalist Would not be opposed to discharge tomorrow if renal function continues to improve -- would hold AJAY-I and HCTZ on discharge until follow with PCP or repeat labs done to ensure renal function is back to baseline; consider using another BP agent [(i.e. amlodipine or hydralazine) since already on metoprolol] if needed for BP control on discharge.... Will continue to follow. Subjective Date/time seen: 07/30/24 09:55 Interval history: Follow-up for acute kidney injury/acute renal failure. Overall, states she is feeling significantly better in comparison to admission; renal function/creatinine continue to slowly improve with supportive therapy/interventions; continues to make excellent urine output as well; no other acute issues/complaints voiced; no apparent distress to report at the time of my visit. Exam 2 Narrative: General: WD/WN female in NAD Heart: normal S1 and S2; no rub Lungs: clear to auscultation Abdomen: soft, nontender, nondistended, positive bowel sounds Extremities: no cyanosis or clubbing; no edema Skin: no nodules Objective Data Vital Signs Vital Signs: Vital Signs Temp Pulse Resp BP Pulse Ox O2 Del Method 07/30/24 09:40 97.2 F L 81 19 157/102 H 97 07/30/24 08:44 Room Air 07/30/24 08:40 76 07/30/24 04:25 97 F L 72 16 159/90 H 97 07/29/24 21:08 97.6 F 85 18 162/97 H 96 07/29/24 20:00 Room Air Intake/Output Intake/Output: Intake & Output 07/27/24 07/28/24 07/29/24 07/30/24 23:59 23:59 23:59 23:59 Intake Total 5028.5 4870 3811.7 2810.3 Output Total 4650 6400 6250 4500 Balance 378.5 -1530 -2438.3 -1689.7 Meds/Results Medications: Active Medications Generic Name Dose Route Start Last Admin Trade Name Freq PRN Reason Stop Dose Admin Acetaminophen 650 mg 07/25/24 22:39 07/30/24 16:28 Acetaminophen 325 Mg Tablet PO 650 mg Q4H PRN Administration Mild Pain (1-3) or Fever Hydrocodone Bitart/Acetaminophen 1 tab 07/26/24 00:18 07/28/24 19:15 Hydrocodone/Acetaminophen (*Crx) 5-325 Mg Tablet PO 1 tab Q4H PRN Administration Pain Rated 4-6 Buspirone HCl 2.5 mg/ 7.5 mg 07/26/24 09:00 07/30/24 08:40 Buspirone HCl 5 mg PO 7.5 mg Q12HR VICENTA Administration Carvedilol 6.25 mg 07/30/24 21:00 Carvedilol 6.25 Mg Tablet PO Q12HR VICENTA Dextrose 12.5 gm 07/25/24 22:53 07/26/24 10:02 Dextrose 50% 25 Gm/50 Ml Syringe IV PUSH 12.5 gm PRN PRN Administration Hypoglycemia Protocol Diphenoxylate HCl/Atropine 1 tablet 07/25/24 23:36 07/26/24 02:26 Diphenoxylate/Atropine (*Crx) 2.5 Mg Tablet PO 1 tablet PRN PRN Administration Diarrhea Enoxaparin Sodium 30 mg 07/26/24 09:00 07/30/24 08:39 Enoxaparin 30 Mg/0.3 Ml Syringe SUB-Q 30 mg DAILY VICENTA Administration Glucagon 1 mg 07/25/24 22:53 Glucagon For Inj 1 Mg Vial IM PRN PRN Hypoglycemia Protocol Glucose 15 gm 07/25/24 22:53 07/26/24 09:17 Glucose Oral Gel 15 Gm Of Glucse In 37.5 Gm Tube PO 15 gm PRN PRN Administration Hypoglycemia Protocol Hydralazine HCl 10 mg 07/29/24 17:10 Hydralazine Hcl 20 Mg/Ml Vial IV PUSH Q8H PRN Blood Pressure - High Hydroxyzine HCl 10 mg 07/26/24 07:24 Hydroxyzine Hcl 10 Mg Tablet PO BID PRN anxiety Insulin Aspart 4 - 8 units 07/26/24 08:00 07/30/24 11:33 Insulin Aspart (*Bkc) 100 Units/Ml SUB-Q Not Given TIDWM VICENTA Protocol Levofloxacin 500 mg 07/28/24 16:00 07/30/24 16:26 Levofloxacin 500 Mg Tablet PO 500 mg Q48H VICENTA Administration Loratadine 10 mg 07/26/24 07:45 Loratadine 10 Mg Tablet PO DAILY PRN allergy symptoms Melatonin 5 mg 07/28/24 21:00 07/29/24 21:07 Melatonin 5 Mg Tablet PO 5 mg HS VICENTA Administration Metoprolol Succinate 50 mg 07/26/24 21:00 07/29/24 21:07 Metoprolol Succinate Ext Rel 50 Mg Tabcr PO 50 mg HS VICENTA Administration Morphine Sulfate 2 mg 07/26/24 00:18 07/26/24 07:54 Morphine Sulfate (*Crx) 2 Mg/Ml Inj IV PUSH 2 mg Q4H PRN Administration Pain Rated 7-10 Ondansetron HCl 4 mg 07/25/24 22:39 07/27/24 08:48 Ondansetron Inj 4 Mg/2 Ml Vial IV PUSH 4 mg Q4H PRN Administration Nausea Pantoprazole Sodium 40 mg 07/26/24 09:00 07/30/24 08:40 Pantoprazole Sodium Iv 40 Mg Vial IV PUSH 40 mg QAM VICENTA Administration Rosuvastatin Calcium 5 mg 07/26/24 21:00 07/29/24 21:07 Rosuvastatin 5 Mg Tablet PO 5 mg HS VICENTA Administration Sertraline HCl 50 mg 07/26/24 09:00 07/30/24 08:40 Sertraline Hcl 50 Mg Tablet PO 50 mg DAILY VICENTA Administration Sodium Bicarbonate 1,300 mg 07/27/24 09:00 07/30/24 16:26 Sodium Bicarbonate Tab 650 Mg Tablet PO 1,300 mg TID VICENTA Administration Radiology Results: ITS Impressions Abdomen/Pelvis CT 07/25/24 21:52 IMPRESSION: Hepatomegaly. Inflammatory change surrounding the bladder. No obstructive uropathy. Renal Ultrasound 07/26/24 08:38 IMPRESSION: 1. Normal kidneys without hydronephrosis. Chest X-Ray 07/27/24 06:53 Impression: Suspected left lower lobe pneumonia. Labs Labs: Laboratory Tests 07/30/24 05:31 07/30/24 05:31 Calcium 8.1 L Phosphorus 4.2 Magnesium 1.5 L Total Bilirubin 0.3 AST 20 ALT 15 Alkaline Phosphatase 63 Total Protein 6.0 L Albumin 3.2 L Lipase 117
[2024-07-30 11:53] LABS: Glucose Point of Care 138 mg/dl (65-105)
[2024-07-30 14:00] VITALS: BP 157/102; PULSE 81; RESP 19; TEMP 36.2; O2SAT 97
--- NOTE | 2024-07-30 14:16 | P.PNIM_ITS ---
Progress Note: A&P Assessment and Plan (1) Acute renal failure: Qualifiers: Acute renal failure type: unspecified Qualified Code(s): N17.9 - Acute kidney failure, unspecified Code(s): N17.9 - Acute kidney failure, unspecified Status: Acute Assessment and Plan: patient presented to the emergency department with days nausea vomiting diarrhea most severe dehydration unknown infectious cause what does appear to possible pancreatitis * nephrology consulted * creatinine 6.94 and GFR 7, previously 0.6 and GFR >60 on 10/03/2023 * aggressive IV fluids * renal ultrasound * prerenal? * add CK, urine sodium, protein/creatinine, urea * UA showed 2+ protein * monitor I&Os, may need Parikh placed for accurate I&Os if unable to measure via hat due to diarrhea * IV fluids: 3L bolus -> D5/NS 150 mL/hr * patient will need to discontinue her lisinopril and hydrochlorothiazide inpatient and on discharge will also discontinue her glipizide which is likely causing her hypoglycemia due to ALYSON and dehydration * Placed parikh catheter for strict I&O's poor reported urinary output 07/27/24: * Urinary output increased today * Cr slow downtrend * continue with aggressive IV fluids pending renal recovery 07/28 * Creatinine down to 5.97 * will switch IV fluids to normal saline at 100 mL/hour * continue to trend * monitor strict I&O * renal ultrasound showed normal kidneys without hydronephrosis * likely due to dehydration 07/29 * Creatinine 4.14 * Continue IV fluids * Continue to trend 07/30 * Creatinine 2.64 * IV fluids discontinued * Parikh catheter discontinued (2) Metabolic acidosis: Code(s): E87.20 - Acidosis, unspecified Status: Acute Assessment and Plan: * Carbon dioxide 12L * bicarb tablets added TID * likely secondary to dehydration and ALYSON 07/28 * carbon dioxide 16 * continue bicarb tablets t.i.d. 07/29 * Bicarb 19 * Continue to trend 07/30 * Bicarb 22 * continue to trend (3) Pancreatitis: Qualifiers: Chronicity: acute Pancreatitis type: unspecified pancreatitis type Acute pancreatitis complication: unspecified Qualified Code(s): K85.90 - Acute pancreatitis without necrosis or infection, unspecified Code(s): K85.90 - Acute pancreatitis without necrosis or infection, unspecified Status: Resolved Assessment and Plan: * lipase 591, trend * limited to of pancreas on CT due to lack of contrast * IV fluids * analgesics p.r.n. * PPI * antiemetics * lipase trending up continue with daily lipase * clear liquid diet will advance as tolerated * Will need to discontinue her GLP1 medication * Lipid panel pending to evaluate hypertriglyceridemia RESOLVED (4) Dehydration: Code(s): E86.0 - Dehydration Status: Acute Assessment and Plan: * N/V/D for multiple days likely viral infection * likely secondary to pancreatitis possibly from GLP1 medication may need to discontinue * Lipid panel ordered * Aggressive IV fluids 2 * continue IV fluids 2 * No change to current treatment plan 07/30 * IV fluids discontinued (5) Hypoglycemia associated with type 2 diabetes mellitus: Code(s): E11.649 - Type 2 diabetes mellitus with hypoglycemia without coma Status: Acute Assessment and Plan: patient with severe hypoglycemia POA slightly secondary to patient's continued dehydration, nausea, vomiting diarrhea and acute kidney injury while she was taking was taking glipizide also on a GLP 1 * initially started on D5 half-normal saline * will increase to D10 still having episodes of hypoglycemia * patient will recommend to discontinue her use of glipizide and GLP 1 at discharge * Accu-Cheks Q 6 hours * patient with good oral intake but poor urinary output * hypoglycemic protocol in place 07/27/ * Stabilized * switch back to dextrose 5 07/28 * Accu-Cheks changed back to a a.c. HS * diabetic diet ordered * hypoglycemic protocol in place * high-dose sliding scale insulin ordered * continue to hold glipizide and Mounjaro 07/29 * No change (6) Pneumonia: Code(s): J18.9 - Pneumonia, unspecified organism Status: Acute Assessment and Plan: * CXR: Suspected left lower lobe pneumonia. * Ceftriaxone and azithromycin * Oxygen PRN on RA * antipyretics 07/28 * change to renally dosed Levaquin x5 days 07/29 * No change (7) Obese: Code(s): E66.9 - Obesity, unspecified Status: Acute Assessment and Plan: * encourage increased on physical activity and lifestyle modifications * Stress monitoring * encourage outpatient weight loss clinic * Diet exercise counseling done. 07/28 * no change to current treatment plan (8) UTI (urinary tract infection): Qualifiers: Urinary tract infection type: acute cystitis Hematuria presence: without hematuria Qualified Code(s): N30.00 - Acute cystitis without hematuria Code(s): N39.0 - Urinary tract infection, site not specified Status: Ruled-out Assessment and Plan: * UA: Turbid, 2+ protein, 1+ glucose, trace ketones, 2+ leuks, 11-20 RBC, 21-50 WBC, few epithelial cells, 4+ bacteria. * UC pending * no previous micro available for review * started on Ceftriaxone on 07/25 RULED OUT (9) HTN (hypertension): Code(s): I10 - Essential (primary) hypertension Status: Acute Assessment and Plan: * Lisinopril and hydrochlorothiazide held due to acute kidney injury * Will start Coreg * Hydralazine ordered for systolic greater than 160 07/30 * Coreg increased to 6.25 * hydralazine PRN Time Spent With Patient Time with patient: 25 - 35 minutes Subjective Date/time seen: 07/30/24 14:16 Interval history: Interval history: This is a 33-year-old female who presented to the hospital on 07/25/2024 with hypoglycemia secondary to nausea, vomiting, diarrhea. Workup in the hospital included a CT of the abdomen and pelvis which showed hepatomegaly, inflammatory change surrounding the bladder, no obstructive uropathy. Renal ultrasound showed normal kidneys without hydronephrosis. Chest x-ray showed suspected left lower lobe pneumonia. Initial labs showed a white blood cell count of 16.3, platelet count 464, eosinophils 6.3%, bicarb 17, anion gap 18, creatinine 6.94, EGFR 7, blood sugar 60, phosphorus 4.9, lipase 591, procalcitonin 0.6. UA was obtained which showed turbid urine appearance, 2+ urine protein, 1+ urine glucose, trace ketone, 2+ leukocyte, 11-20 urine RBC, 21-50 urine WBC, 4+ urine bacteria. Protein/creatinine ratio 0.84. Respiratory panel was negative for influenza a and B, RSV, COVID. Urine culture was negative. Blood culture showing no growth to date on preliminary read. Stool culture was negative for E coli, Salmonella /Shigella, Campylobacter antigen assay. 07/28/2024 Patient was initially started on azithromycin and Rocephin and was changed over to Levaquin today. She was on D5 NS for her low blood sugars however that has resolved. She is now on normal saline at 100 mL/hour. labs today showed a normal white blood cell count of 8.9, hemoglobin 9.7, eosinophils down to 0.8, bicarb 17, anion gap 14, creatinine down to 5.01, blood sugars ranging 119-133. Subjective: Patient states she did not sleep well overnight. Her creatinine is trending down. Labs reviewed. Review of Systems Review of Systems: All systems reviewed & are unremarkable except as noted in HPI and below Exam Narrative: General: In no acute distress, well nourished Cardiac: Normal S1 and S2. RRR, No murmur, gallops or friction rubs, peripheral pulses intact. Respiratory: Lungs clear to auscultation, no adventitious lung sounds, currently on room air Gastrointestinal: soft, non-distended, non-tender, normoactive bowel sounds. Neuro: Alert and oriented x4 Objective Data Vital Signs Vital Signs: Vital Signs - 24 hr 07/29/24 20:00 07/29/24 21:08 07/30/24 04:25 Temperature 97.6 F 97 F L Pulse Rate 85 72 Respiratory Rate 18 16 Blood Pressure 162/97 H 159/90 H Pulse Oximetry 96 97 Oxygen Delivery Room Air 07/30/24 08:40 07/30/24 08:44 Temperature Pulse Rate 76 Respiratory Rate Blood Pressure Pulse Oximetry Oxygen Delivery Room Air Intake/Output Intake/Output: Intake & Output 07/27/24 07/28/24 07/29/24 07/30/24 23:59 23:59 23:59 23:59 Intake Total 5028.5 4870 3811.7 2810.3 Output Total 4650 6400 6220 4500 Balance 378.5 -1530 -2438.3 -1689.7 Meds/Results Medications: Active Medications Generic Name Dose Route Start Last Admin Trade Name Freq PRN Reason Stop Dose Admin Acetaminophen 650 mg 07/25/24 22:39 07/30/24 13:43 Acetaminophen 325 Mg Tablet PO 650 mg Q4H PRN Administration Mild Pain (1-3) or Fever Hydrocodone Bitart/Acetaminophen 1 tab 07/26/24 00:18 07/28/24 19:15 Hydrocodone/Acetaminophen (*Crx) 5-325 Mg Tablet PO 1 tab Q4H PRN Administration Pain Rated 4-6 Buspirone HCl 2.5 mg/ 7.5 mg 07/26/24 09:00 07/30/24 08:40 Buspirone HCl 5 mg PO 7.5 mg Q12HR VICENTA Administration Carvedilol 3.125 mg 07/29/24 10:55 07/30/24 08:40 Carvedilol 3.125 Mg Tablet PO 3.125 mg Q12HR VICENTA Administration Dextrose 12.5 gm 07/25/24 22:53 07/26/24 10:02 Dextrose 50% 25 Gm/50 Ml Syringe IV PUSH 12.5 gm PRN PRN Administration Hypoglycemia Protocol Diphenoxylate HCl/Atropine 1 tablet 07/25/24 23:36 07/26/24 02:26 Diphenoxylate/Atropine (*Crx) 2.5 Mg Tablet PO 1 tablet PRN PRN Administration Diarrhea Enoxaparin Sodium 30 mg 07/26/24 09:00 07/30/24 08:39 Enoxaparin 30 Mg/0.3 Ml Syringe SUB-Q 30 mg DAILY VICENTA Administration Glucagon 1 mg 07/25/24 22:53 Glucagon For Inj 1 Mg Vial IM PRN PRN Hypoglycemia Protocol Glucose 15 gm 07/25/24 22:53 07/26/24 09:17 Glucose Oral Gel 15 Gm Of Glucse In 37.5 Gm Tube PO 15 gm PRN PRN Administration Hypoglycemia Protocol Hydralazine HCl 10 mg 07/29/24 17:10 Hydralazine Hcl 20 Mg/Ml Vial IV PUSH Q8H PRN Blood Pressure - High Hydroxyzine HCl 10 mg 07/26/24 07:24 Hydroxyzine Hcl 10 Mg Tablet PO BID PRN anxiety Sodium Chloride 1,000 mls @ 100 mls/hr 07/28/24 18:25 07/30/24 11:00 Normal Saline Iv IV CONT 100 mls/hr .Q10H VICENTA Administration Insulin Aspart 4 - 8 units 07/26/24 08:00 07/30/24 11:33 Insulin Aspart (*Bkc) 100 Units/Ml SUB-Q Not Given TIDWM [facility] Protocol Levofloxacin 500 mg 07/28/24 16:00 07/28/24 17:49 Levofloxacin 500 Mg Tablet PO 500 mg Q48H VICENTA Administration Loratadine 10 mg 07/26/24 07:45 Loratadine 10 Mg Tablet PO DAILY PRN allergy symptoms Melatonin 5 mg 07/28/24 21:00 07/29/24 21:07 Melatonin 5 Mg Tablet PO 5 mg HS [facility] Administration Metoprolol Succinate 50 mg 07/26/24 21:00 07/29/24 21:07 Metoprolol Succinate Ext Rel 50 Mg Tabcr PO 50 mg HS [facility] Administration Morphine Sulfate 2 mg 07/26/24 00:18 07/26/24 07:54 Morphine Sulfate (*Crx) 2 Mg/Ml Inj IV PUSH 2 mg Q4H PRN Administration Pain Rated 7-10 Ondansetron HCl 4 mg 07/25/24 22:39 07/27/24 08:48 Ondansetron Inj 4 Mg/2 Ml Vial IV PUSH 4 mg Q4H PRN Administration Nausea Pantoprazole Sodium 40 mg 07/26/24 09:00 07/30/24 08:40 Pantoprazole Sodium Iv 40 Mg Vial IV PUSH 40 mg QAM [facility] Administration Rosuvastatin Calcium 5 mg 07/26/24 21:00 07/29/24 21:07 Rosuvastatin 5 Mg Tablet PO 5 mg HS [facility] Administration Sertraline HCl 50 mg 07/26/24 09:00 07/30/24 08:40 Sertraline Hcl 50 Mg Tablet PO 50 mg DAILY [facility] Administration Sodium Bicarbonate 1,300 mg 07/27/24 09:00 07/30/24 13:36 Sodium Bicarbonate Tab 650 Mg Tablet PO 1,300 mg TID VICENTA Administration Radiology Results: ITS Impressions Abdomen/Pelvis CT 07/25/24 21:52 IMPRESSION: Hepatomegaly. Inflammatory change surrounding the bladder. No obstructive uropathy. Renal Ultrasound 07/26/24 08:38 IMPRESSION: 1. Normal kidneys without hydronephrosis. Chest X-Ray 07/27/24 06:53 Impression: Suspected left lower lobe pneumonia. Labs Labs: Laboratory Results - last 24 hr 07/29/24 07/29/24 07/29/24 16:48 17:33 21:10 WBC RBC Hgb Hct MCV MCH MCHC RDW Plt Count MPV Immature Gran % (Auto) Neut % (Auto) Lymph % (Auto) [place] % (Auto) Eos % (Auto) Baso % (Auto) Lymph # (Auto) [place] # (Auto) Eos # (Auto) Baso # (Auto) Abs Immat Gran (auto) Absolute Neuts (auto) Absolute Nucleated RBC Nucleated RBC % Sodium 140 Potassium 3.3 L Chloride 108 H Carbon Dioxide 20 L Anion Gap 12 BUN 34 H Creatinine 3.14 H Estim Creat Clear Calc 29 Estimated GFR 17 L Glucose 131 H POC Capillary Glucose 155 H 140 H Calcium 8.0 L Phosphorus Magnesium Total Bilirubin AST ALT Alkaline Phosphatase Total Protein Albumin Lipase 07/30/24 07/30/24 07/30/24 05:31 08:07 11:33 WBC 8.3 RBC 3.62 L Hgb 9.5 L Hct 29.3 L MCV 80.9 MCH 26.2 MCHC 32.4 RDW 13.3 Plt Count 371 MPV 9.1 Immature Gran % (Auto) 0.5 Neut % (Auto) 66.8 Lymph % (Auto) 18.0 L Stafford % (Auto) 6.4 Eos % (Auto) 7.3 H Baso % (Auto) 1.0 Lymph # (Auto) 1.49 Stafford # (Auto) 0.5 Eos # (Auto) 0.6 H Baso # (Auto) 0.1 Abs Immat Gran (auto) 0.04 H Absolute Neuts (auto) 5.5 Absolute Nucleated RBC 0.000 Nucleated RBC % 0.0 Sodium 143 Potassium 3.1 L Chloride 109 H Carbon Dioxide 22 Anion Gap 12 BUN 27 H Creatinine 2.64 H Estim Creat Clear Calc 35 Estimated GFR 21 L Glucose 122 H POC Capillary Glucose 191 H 138 H Calcium 8.1 L Phosphorus 4.2 Magnesium 1.5 L Total Bilirubin 0.3 AST 20 ALT 15 Alkaline Phosphatase 63 Total Protein 6.0 L Albumin 3.2 L Lipase 117 Quality VTE Prophylaxis VTE prophylaxis: mechanical ordered and pharmacologic ordered
[2024-07-30] MEDS: levoFLOXacin 500 MG TABLET PO (16:26)
[2024-07-30 17:10] LABS: Glucose Point of Care 157 mg/dl (65-105)
[2024-07-30 20:12] VITALS: PULSE 74; RESP 16; TEMP 36.5; O2SAT 98
[2024-07-30] MEDS: METOPROLOL SUCCINATE EXT REL 50 MG TABCR PO (21:32)
[2024-07-30] MEDS: ROSUVASTATIN 5 MG TABLET PO (21:32)
[2024-07-30] MEDS: MELATONIN 5 MG TABLET PO (21:32)
[2024-07-30] MEDS: carvediloL 6.25 MG TABLET PO (21:33)
[2024-07-30 23:07] LABS: Glucose Point of Care 162 mg/dl (65-105)
[2024-07-31 04:10] VITALS: BP 155/89; PULSE 78; RESP 16; TEMP 36.9; O2SAT 98
[2024-07-31 05:46] LABS: Basophils Absolute Auto 0.1 K/mm3 (0.0-0.1); Basophils Percent Auto 1.5 % (0.2-1.2); Eosinophils Absolute Auto 0.7 K/mm3 (0-0.3); Eosinophils Percent Auto 8.3 % (0-4.4); Hematocrit 32.6 % (37.0-47.0); Hemoglobin 10.5 g/dL (12.0-15.0); Immature Granulocyte Absolute 0.09 K/mm3 (0.00-0.031); Lymphocytes Absolute Auto 2.02 K/mm3 (0.9-3.2); Lymphocytes Percent Auto 22.5 % (18.3-44.2); Mean Corpuscular HGB Conc 32.2 g/dl (32-36); Mean Corpuscular Hemoglobin 26.1 pg (26-34); Mean Corpuscular Volume 80.9 fl (80-100); Mean Platelet Volume 8.5 fl (7.4-10.4); Monocytes Absolute Auto 0.5 K/mm3 (0.1-0.6); Monocytes Percent Auto 5.2 % (2.6-8.5); Neutrophils Absolute Auto 5.5 K/mm3 (1.3-6.7); Neutrophils Percent Auto 61.5 % (45.5-73.1); Platelet Count Result 415 k/mm3 (150-375); Red Blood Count 4.03 M/mm3 (4.2-5.4); Red Cell Distribution Width 13.2 % (11.5-14.5)
[2024-07-31 05:56] LABS: Alanine Aminotransferase 21 U/L (6-35); Albumin Level 3.7 g/dL (3.5-5.1); Alkaline Phosphatase 61 U/L (38-126); Anion Gap 9 mmol/L (4-12); Aspartate Amino Transferase 25 U/L (14-36); Bilirubin,Total 0.3 mg/dL (0.2-1.3); Blood Urea Nitrogen 20 mg/dL (7-17); Calcium 8.4 mg/dL (8.4-10.2); Carbon Dioxide 30 mmol/L (22-30); Chloride 104 mmol/L (98-107); Estimated CRCL calculation 50 ml/min; Estimated Glomerular Filt Rate 33; Glucose 129 mg/dL (65-110); Magnesium 1.3 mg/dL (1.6-2.3); Phosphorus 3.9 mg/dL (2.5-4.5); Potassium 3.4 mmol/L (3.4-5.0); Sodium 143 mmol/L (137-145)
[2024-07-31 08:11] VITALS: PULSE 72
[2024-07-31] MEDS: busPIRone HCL 2.5 MG, busPIRone HCL 5 MG 7.5 MG PO (08:11)
[2024-07-31] MEDS: MAGNESIUM OXIDE 400 MG TABLET PO ×2 (08:11→10:34)
[2024-07-31] MEDS: carvediloL 6.25 MG TABLET PO ×2 (08:11→10:35)
[2024-07-31] MEDS: SERTRALINE HCL 50 MG TABLET PO (08:11)
--- NOTE | 2024-07-31 09:00 | P.PNNP_ITS ---
Progress Note: A&P Assessment and Plan (1) ALYSON (acute kidney injury): Code(s): N17.9 - Acute kidney failure, unspecified Status: Acute Assessment and Plan: * improvement noted by trend of labs * history would suggest volume depletion * several days of nausea + vomiting + diarrhea * likely worsened by AJAY-I + HCTZ use prior to admission * pancreatitis playing a role(?) * may have developed a component of ATN for prolonged renal hypoperfusion * evaluation to date noted: * normal renal ultrasound * CT A/P negative (and no evidence of pancreatitis) * urine electrolytes prerenal (by FeUrea) * UA suggest infection (but urine culture negative) * moderate proteinuria * CPK okay * urine eosinophils negative * weaned off IVFs since eating and drinking well * follow trend of repeat labs and UOP (2) Metabolic acidosis: Code(s): E87.20 - Acidosis, unspecified Status: Acute Assessment and Plan: * slow improvement if not resolving * quite significant on admission * attempting to compensate with oral sodium bicarbonate * presumably due to #1 * follow CO2 levels * off sodium bicarbonate (3) Pancreatitis: Qualifiers: Acute pancreatitis complication: unspecified Chronicity: acute P ancreatitis type: unspecified pancreatitis type Qualified Code(s): K85.90 - Acute pancreatitis without necrosis or infection, unspecified Code(s): K85.90 - Acute pancreatitis without necrosis or infection, unspecified Status: Resolved Assessment and Plan: * suggested by admission lipase * limited assessment of pancreas by admission CT scan * lipase peaked at 988 with now normalization * tolerating diet (4) Pneumonia: Code(s): J18.9 - Pneumonia, unspecified organism Status: Acute Assessment and Plan: * noted by recent CXR * on antibiotics * follow culture data * no clinical symptoms * on room air (5) UTI (urinary tract infection): Qualifiers: Hematuria presence: without hematuria Urinary tract infection type: a cute cystitis Qualified Code(s): N30.00 - Acute cystitis without hematuria Code(s): N39.0 - Urinary tract infection, site not specified Status: Ruled-out Assessment and Plan: * suspected based on admission UA * empiric antibiotics * urine culture negative (6) Hypoglycemia associated with type 2 diabetes mellitus: Code(s): E11.649 - Type 2 diabetes mellitus with hypoglycemia without coma Status: Acute Assessment and Plan: * quite profound on admission * suspect due to poor oral intake/GI symptoms compounded by use of oral hypoglycemic agents * was requiring D10 IVFs to maintain blood sugars * off dextrose IVFs * follow accu-cheks * glycemic control per hospitalist Would not be opposed to discharge today -- would hold AJAY-I and HCTZ on discharge until follow with PCP or repeat labs done to ensure renal function is back to baseline; consider using another BP agent [(i.e. amlodipine or hydralazine) since already on metoprolol] if needed for BP control on discharge.... Will continue to follow. L Subjective Date/time seen: 07/31/24 09:00 Interval history: Follow-up for acute kidney injury/acute renal failure. Continues to make slow and steady recovery -- renal function/creatinine continues to improve as noted by AM labs; weaned off sodium bicarbonate tabs as well with resolution of metabolic acidosis; contineus to make good urine output and parikh catheter was d/c'd yesterday afternoon; hoping for discharge today. Exam 2 Narrative: General: WD/WN female in NAD Heart: normal S1 and S2; no rub Lungs: clear to auscultation Abdomen: soft, nontender, nondistended, positive bowel sounds Extremities: no cyanosis or clubbing; no edema Skin: warm and dry Objective Data Vital Signs Vital Signs: Vital Signs Temp Pulse Resp BP Pulse Ox O2 Del Method 07/31/24 08:11 Room Air 07/31/24 08:11 72 07/31/24 04:10 98.4 F 78 16 155/89 H 98 07/30/24 20:12 97.7 F 74 16 98 07/30/24 20:00 Room Air 07/30/24 14:00 97.2 F L 81 19 157/102 H 97 Intake/Output Intake/Output: Intake & Output 07/28/24 07/29/24 07/30/24 07/31/24 23:59 23:59 23:59 23:59 Intake Total 4870 3811.7 3633.3 940 Output Total 6400 6250 4800 1150 Balance -1530 -2438.3 -1166.7 -210 Meds/Results Medications: Active Medications Generic Name Dose Route Start Last Admin Trade Name Freq PRN Reason Stop Dose Admin Acetaminophen 650 mg 07/25/24 22:39 02/07/25 16:28 Acetaminophen 325 Mg Tablet PO 650 mg Q4H PRN Administration Mild Pain (1-3) or Fever Hydrocodone Bitart/Acetaminophen 1 tab 07/26/24 00:18 07/28/24 19:15 Hydrocodone/Acetaminophen (*Crx) 5-325 Mg Tablet PO 1 tab Q4H PRN Administration Pain Rated 4-6 Buspirone HCl 2.5 mg/ 7.5 mg 07/26/24 09:00 07/31/24 08:11 Buspirone HCl 5 mg PO 7.5 mg Q12HR VICENTA Administration Carvedilol 12.5 mg 07/31/24 21:00 Carvedilol 12.5 Mg Tablet PO Q12HR [facility] Dextrose 12.5 gm 07/25/24 22:53 07/26/24 10:02 Dextrose 50% 25 Gm/50 Ml Syringe IV PUSH 12.5 gm PRN PRN Administration Hypoglycemia Protocol Diphenoxylate HCl/Atropine 1 tablet 07/25/24 23:36 07/26/24 02:26 Diphenoxylate/Atropine (*Crx) 2.5 Mg Tablet PO 1 tablet PRN PRN Administration Diarrhea Enoxaparin Sodium 30 mg 07/26/24 09:00 07/31/24 08:12 Enoxaparin 30 Mg/0.3 Ml Syringe SUB-Q Not Given DAILY [facility] Glucagon 1 mg 07/25/24 22:53 Glucagon For Inj 1 Mg Vial IM PRN PRN Hypoglycemia Protocol Glucose 15 gm 07/25/24 22:53 07/26/24 09:17 Glucose Oral Gel 15 Gm Of Glucse In 37.5 Gm Tube PO 15 gm PRN PRN Administration Hypoglycemia Protocol Hydralazine HCl 10 mg 07/29/24 17:10 Hydralazine Hcl 20 Mg/Ml Vial IV PUSH Q8H PRN Blood Pressure - High Hydroxyzine HCl 10 mg 07/26/24 07:24 Hydroxyzine Hcl 10 Mg Tablet PO BID PRN anxiety Insulin Aspart 4 - 8 units 07/26/24 08:00 07/31/24 09:24 Insulin Aspart (*Bkc) 100 Units/Ml SUB-Q Not Given TIDWM [facility] Protocol Levofloxacin 500 mg 07/28/24 16:00 07/30/24 16:26 Levofloxacin 500 Mg Tablet PO 500 mg Q48H VICENTA Administration Loratadine 10 mg 07/26/24 07:45 Loratadine 10 Mg Tablet PO DAILY PRN allergy symptoms Magnesium Oxide 400 mg 07/31/24 09:00 07/31/24 08:11 Magnesium Oxide 400 Mg Tablet PO 400 mg DAILY VIC[facility] Administration Melatonin 5 mg 07/28/24 21:00 07/30/24 21:32 Melatonin 5 Mg Tablet PO 5 mg HS VICENTA Administration Metoprolol Succinate 50 mg 07/26/24 21:00 07/30/24 21:32 Metoprolol Succinate Ext Rel 50 Mg Tabcr PO 50 mg HS [facility] Administration Morphine Sulfate 2 mg 07/26/24 00:18 07/26/24 07:54 Morphine Sulfate (*Crx) 2 Mg/Ml Inj IV PUSH 2 mg Q4H PRN Administration Pain Rated 7-10 Ondansetron HCl 4 mg 07/25/24 22:39 07/27/24 08:48 Ondansetron Inj 4 Mg/2 Ml Vial IV PUSH 4 mg Q4H PRN Administration Nausea Pantoprazole Sodium 40 mg 07/31/24 10:30 07/31/24 10:34 Pantoprazole 40 Mg Tablet PO 40 mg QAM [facility] Administration Rosuvastatin Calcium 5 mg 07/26/24 21:00 07/30/24 21:32 Rosuvastatin 5 Mg Tablet PO 5 mg HS VICENTA Administration Sertraline HCl 50 mg 07/26/24 09:00 07/31/24 08:11 Sertraline Hcl 50 Mg Tablet PO 50 mg DAILY [facility] Administration Radiology Results: ITS Impressions Abdomen/Pelvis CT 07/25/24 21:52 IMPRESSION: Hepatomegaly. Inflammatory change surrounding the bladder. No obstructive uropathy. Renal Ultrasound 07/26/24 08:38 IMPRESSION: 1. Normal kidneys without hydronephrosis. Chest X-Ray 07/27/24 06:53 Impression: Suspected left lower lobe pneumonia. Labs Labs: Laboratory Tests 07/31/24 05:33 07/31/24 05:33 Calcium 8.4 Phosphorus 3.9 Magnesium 1.3 L Total Bilirubin 0.3 AST 25 ALT 21 Alkaline Phosphatase 61 Total Protein 7.0 Albumin 3.7 Microbiology 07/25/24 23:05 Blood Blood Culture - Final 07/25/24 23:05 Blood Blood Culture - Final
[2024-07-31 09:27] LABS: Glucose Point of Care 132 mg/dl (65-105)
[2024-07-31] MEDS: PANTOPRAZOLE 40 MG TABLET PO (10:34)
[2024-07-31 10:35] VITALS: PULSE 76
--- NOTE | 2024-07-31 11:16 | P.DS_ITS ---
DS: Admitting Diagnosis Discharge Date 07/31/24 Admitting Diagnosis Sepsis UTI acute renal failure hypoglycemia so she did with type 2 diabetes mellitus pancreatitis DS: Discharge Diagnosis Discharge Diagnosis (1) Acute renal failure: Qualifiers: Acute renal failure type: unspecified Qualified Code(s): N17.9 - Acute kidney failure, unspecified Code(s): N17.9 - Acute kidney failure, unspecified Status: Acute (2) Metabolic acidosis: Code(s): E87.20 - Acidosis, unspecified Status: Acute (3) Pancreatitis: Qualifiers: Chronicity: acute Pancreatitis type: unspecified pancreatitis type Acute pancreatitis complication: unspecified Qualified Code(s): K85.90 - Acute pancreatitis without necrosis or infection, unspecified Code(s): K85.90 - Acute pancreatitis without necrosis or infection, unspecified Status: Resolved (4) Dehydration: Code(s): E86.0 - Dehydration Status: Acute (5) Hypoglycemia associated with type 2 diabetes mellitus: Code(s): E11.649 - Type 2 diabetes mellitus with hypoglycemia without coma Status: Acute (6) Pneumonia: Code(s): J18.9 - Pneumonia, unspecified organism Status: Acute (7) Obese: Code(s): E66.9 - Obesity, unspecified Status: Acute (8) UTI (urinary tract infection): Qualifiers: Urinary tract infection type: acute cystitis Hematuria presence: without hematuria Qualified Code(s): N30.00 - Acute cystitis without hematuria Code(s): N39.0 - Urinary tract infection, site not specified Status: Ruled-out (9) HTN (hypertension): Code(s): I10 - Essential (primary) hypertension Status: Acute DS: Summary Hospital Course Reason for hospitalization: Sepsis UTI acute renal failure hypoglycemia so she did with type 2 diabetes mellitus pancreatitis Hospital Course: This is a 33-year-old female who presented to the hospital on 07/25/2024 with hypoglycemia secondary to nausea, vomiting, diarrhea. Workup in the hospital included a CT of the abdomen and pelvis which showed hepatomegaly, inflammatory change surrounding the bladder, no obstructive uropathy. Renal ultrasound showed normal kidneys without hydronephrosis. Chest x-ray showed suspected left lower lobe pneumonia. Initial labs showed a white blood cell count of 16.3, platelet count 464, eosinophils 6.3%, bicarb 17, anion gap 18, creatinine 6.94, EGFR 7, blood sugar 60, phosphorus 4.9, lipase 591, procalcitonin 0.6. UA was obtained which showed turbid urine appearance, 2+ urine protein, 1+ urine glucose, trace ketone, 2+ leukocyte, 11-20 urine RBC, 21-50 urine WBC, 4+ urine bacteria. Protein/creatinine ratio 0.84. Respiratory panel was negative for influenza a and B, RSV, COVID. Urine culture was negative. Blood culture showing no growth to date on preliminary read. Stool culture was negative for E coli, Salmonella /Shigella, Campylobacter antigen assay. Patient initially meeting sepsis criteria with elevated WBC, HR 103, and suspected UTI. However UTI was ruled out with negative urine culture patient was seen by Nephrology for her acute kidney injury. She was treated with IV fluids. Her acute kidney injury was likely due to use of hydrochlorothiazide and lisinopril coupled with pancreatitis and recent nausea vomiting diarrhea leading to dehydration. She had a renal ultrasound done which was normal. She also had a metabolic acidosis and was treated with sodium bicarb tablets. considering her pancreatitis and hypoglycemia we held off on her glipizide and her medication. Her lipase normalized, her blood sugars improved, and her creatinine started trending downward. She is stable for discharge at this time. She will need to follow up with her primary care doctor in 1 week. I did write for a repeat creatinine in 1 week. We also instructed her to talk with her primary care doctor about a different medication considering her pancreatitis. Final diagnosis: acute pancreatitis, acute kidney injury, dehydration, metabolic acidosis, hypoglycemia Status at Discharge Cognitive/behavioral status at discharge: alert oriented x4 Functional status at discharge: independent ambulation Overall status at discharge: patient is progressing back to baseline Time Spent with Patient Time attestation: Total time spent providing and/or coordinating discharge services: Time spent: Greater than 30 minutes Exam Narrative: General: In no acute distress, well nourished Cardiac: Normal S1 and S2. RRR, No murmur, gallops or friction rubs, peripheral pulses intact. Respiratory: Lungs clear to auscultation, no adventitious lung sounds, currently on room air Gastrointestinal: soft, non-distended, non-tender, normoactive bowel sounds. Neuro: Alert and oriented x4 DS: Data Data Completed and Pending Completed studies during hospitalization: abdomen/pelvis CT renal ultrasound chest x-ray Pending studies at discharge: none Labs on day of discharge: Labs from last 24 hours 07/31/24 07/31/24 07/30/24 09:24 05:33 20:16 WBC 9.0 RBC 4.03 L Hgb 10.5 L Hct 32.6 L MCV 80.9 MCH 26.1 MCHC 32.2 RDW 13.2 Plt Count 415 H MPV 8.5 Immature Gran % (Auto) 1.0 H Neut % (Auto) 61.5 Lymph % (Auto) 22.5 [place] % (Auto) 5.2 Eos % (Auto) 8.3 H Baso % (Auto) 1.5 H Lymph # (Auto) 2.02 [place] # (Auto) 0.5 Eos # (Auto) 0.7 H Baso # (Auto) 0.1 Abs Immat Gran (auto) 0.09 H Absolute Neuts (auto) 5.5 Absolute Nucleated RBC 0.000 Nucleated RBC % 0.0 Sodium 143 Potassium 3.4 Chloride 104 Carbon Dioxide 30 Anion Gap 9 BUN 20 H Creatinine 1.80 H Estim Creat Clear Calc 50 Estimated GFR 33 L Glucose 129 H POC Capillary Glucose 132 H 162 H Calcium 8.4 Phosphorus 3.9 Magnesium 1.3 L Total Bilirubin 0.3 AST 25 ALT 21 Alkaline Phosphatase 61 Total Protein 7.0 Albumin 3.7 07/30/24 07/30/24 16:39 11:33 WBC RBC Hgb Hct MCV MCH MCHC RDW Plt Count MPV Immature Gran % (Auto) Neut % (Auto) Lymph % (Auto) [place] % (Auto) Eos % (Auto) Baso % (Auto) Lymph # (Auto) [place] # (Auto) Eos # (Auto) Baso # (Auto) Abs Immat Gran (auto) Absolute Neuts (auto) Absolute Nucleated RBC Nucleated RBC % Sodium Potassium Chloride Carbon Dioxide Anion Gap BUN Creatinine Estim Creat Clear Calc Estimated GFR Glucose POC Capillary Glucose 157 H 138 H Calcium Phosphorus Magnesium Total Bilirubin AST ALT Alkaline Phosphatase Total Protein Albumin Preliminary micro results at discharge 07/25/24 23:05 Blood Culture - Preliminary Blood 07/25/24 23:05 Blood Culture - Preliminary Blood Procedures/Treatments: none Discharge Plan Discharge Attending physician on discharge: Mickey Dockery Consulting providers: Libby Keenan; Lauryn Khan; Helene Ramirez; Le Cabrera; Guru Espitia; Hunter Vines Discharging Clinician: Rosemary Mullins Anticipated Discharge Date/Time: 07/31/24 10:54 Patient Disposition: Home, Self-Care Activity: as tolerated Diet: as tolerated and regular Discharge Instructions: * Get repeat labs in the next 5 days to recheck your creatinine and magnesium * Follow up with your primary care doctor in 1 week * We will continue to hold your Lisinopril and hydrochlorothiazide considering the significance of your acute kidney injury. Talk with your primary about switching to something else.You have been prescribed amlodipine in the interm. * Stop taking Mounjaro due to pancreatitis. Continue to hold glipizide until seen by your primary care doctor. It is best to wait for your acute kidney injury to resolve before restarting. Continue Farxiga and metformin for now. Check blood sugars as you normally do at home. * Continue taking magnesium as prescribed Patient Instructions: Antibiotic Form Patient Language: Cymraes Stand Alone Forms: General Discharge Information, Work/School Release IP Follow-up/Referrals: Herman,Priya Sellers APRN [Primary Care Provider] - 1 Week Discharge Medications: New levofloxacin 500 mg Tablet 500 mg PO Q48H Qty: 1 0RF Rx Instructions: Take last pill on 08/01/23 to complete your course amlodipine [Norvasc] 5 mg tablet 5 mg PO DAILY Qty: 30 0RF magnesium oxide 400 mg (241.3 mg magnesium) Tablet 400 mg PO DAILY Qty: 30 0RF Continued metformin 1,000 mg tablet 1,000 mg PO BID buspirone 7.5 mg tablet 7.5 mg PO BID sertraline 50 mg tablet 50 mg PO DAILY rosuvastatin 5 mg tablet 5 mg PO HS dapagliflozin propanediol [Farxiga] 5 mg tablet 5 mg PO HS Mounjaro 7.5 mg/0.5 mL pen injector 15 mg SUBCUT WEEKLY Rx Instructions: on Sundays metoprolol succinate 50 mg tablet extended release 24 hr 50 mg PO HS Allergy Relief (cetirizine) 10 mg capsule 10 mg PO DAILY PRN (Reason: allergy symptoms) hydroxyzine HCl 10 mg tablet 10 mg PO BID PRN (Reason: anxiety) atomoxetine 40 mg capsule 40 mg PO DAILY Held glipizide 5 mg tablet 5 mg PO BID Hold Instructions: Resume on 08/07/24. Until your primary care doctor says it is safe to restart Discontinued lisinopril 40 mg tablet 40 mg PO HS lisinopril-hydrochlorothiazide 20-25 mg tablet 1 tablet PO HS Other Ambulatory Orders: Diabetes Education Referral (Routine) Timeframe: 1 Day Location: Determined by Patient Ordered By: Helene Ramirez Basic Metabolic Panel (Routine) Timeframe: 1 Week Location: Determined by Patient Ordered By: Rosemary Mullins Magnesium (Routine) Timeframe: 1 Week Location: Determined by Patient Ordered By: Rosemary Mullins Date of admission: 07/25/24 22:39 Primary Care Provider: HermanPriya Admitting Provider: Clau Booker Attending physician on admission: Rosemary Mullins Condition: Improved Quality VTE Prophylaxis VTE prophylaxis: mechanical ordered and pharmacologic ordered Hospitalist MIPS Heart Failure (Exclusion) Patient has history of Heart Transplant or Left Ventricular Assistive Device?: No IF YES, STOP HERE Heart Failure (Qualifier) Patient has current or prior documentation of LVEF less than or equal to 40%, or mod/servere depressed LVSF?: No IF NO, STOP HERE
[2024-07-31 11:21] VITALS: BP 147/92; PULSE 80; RESP 16; TEMP 36.8; O2SAT 99
[2024-07-31 12:48] LABS: Glucose Point of Care 155 mg/dl (65-105)
--- NOTE | 2024-08-02 14:52 | PCCDE ---
08/02/24 15:50 Courtesy call placed, message left including call back number. FJ
== END 2024-07-31 14:30 | disposition home or self-care (01) | DRG 438 ==
LOC: ANHED 22:43 → ANH3MED 22:54
PROVIDERS: Internal Medicine Nephrology; Nurse Practitioner Family; Student in an Organized Health Care Education/Training Program; Admitting Provider Internal Medicine; Emergency Provider Emergency Medicine; Visit Provider Nurse Practitioner Acute Care
DX: K85.90 Acute pancreatitis without necrosis or infection, unspecified (principal); J18.9 Pneumonia, unspecified organism; N17.9 Acute kidney failure, unspecified; Z68.41 Body mass index [BMI] 40.0-44.9, adult; E87.21 Acute metabolic acidosis; E86.0 Dehydration; E11.649 Type 2 diabetes mellitus with hypoglycemia without coma; F41.8 Other specified anxiety disorders; E78.5 Hyperlipidemia, unspecified; I10 Essential (primary) hypertension; E66.9 Obesity, unspecified; R19.7 Diarrhea, unspecified
CPT/HCPCS: 36415; 71045; 74176; 76775; 80048; 80053; 80061; 81001; 82550; 82570; 82948; 83036; 83605; 83690; 83735; 84100; 84145; 84156; 84300; 84540; 85025; 85610; 85999; 87040; 87045; 87086; 87427; 87449; 87637; 96361; 96374; 96375; 96376; 99285; A9270; J0696; J1650; J2270; J2405; J2470; J3475; J7030; J7042